=== PATIENT | female | born 1960 | race Caucasian/White ===

== ENCOUNTER → 2016-07-07 | Outpatient (CLI) | payer BC ==
[~2016-07-07] MED LIST: DOXY100T PO; ESCI1TAB10 PO; GABA-113 PO; GABA1CAP5 PO; HYDR-5688 PO; ONDA4TAB46 PO; OXYC1CAP5 PO; TEMA15CA4 PO; TRAM-10 PO; TRAZ50TA35 PO; ULT50 PO
--- NOTE | 2016-07-07 11:08 | DIAGNOSTIC IMAGING REPORT ---
MRI LEFT FOOT WITHOUT IV CONTRAST CLINICAL HISTORY: Tender palpable nodule along the bottom of the foot. COMPARISON STUDY: No priors. TECHNIQUE: MRI of the left foot is performed using various T1 and T2-weighted sequences in the axial, sagittal, and coronal planes. IV contrast was not administered for this examination. Note that interpretation is suboptimal without plain film correlate. FINDINGS: The skeletal structures demonstrate normal marrow signal intensity. There is no MRI evidence of fracture or osteonecrosis. No osteochondral defect is seen in the talar dome. A cutaneous marker is placed along the plantar aspect of the foot at the level of the base of the first metatarsal. There is focal nodularity identified involving the medial band of the plantar fascia at this site which measures 0.7 x 1.6 x 1.2 cm. There is mild surrounding soft tissue edema. The appearance is typical for plantar fibromatosis. The remainder of the plantar fascia is normal in appearance. The anterior, posterior, and peroneal tendons are intact as visualized. The anterior talofibular ligament appears preserved. There is no ankle joint effusion. Normal fat is maintained within the sinus tarsi. A plantar calcaneal enthesophyte is observed. IMPRESSION: Findings are consistent with plantar fibromatosis at the indicated site of discomfort/nodularity with mild surrounding soft tissue edema. Electronically signed by: Oren Pritchard M.D. 07/07/2016 11:07 AM Dictated Date/Time: 07/07/2016 11:02 AM
== END | disposition home or self-care (01) ==
LOC: C.MRIBC 10:03
PROVIDERS: ATTEND Orthopaedic Surgery
DX: M79.672 Pain in left foot (principal)

== ENCOUNTER → 2016-08-05 | Outpatient (CLI) | payer BC ==
[~2016-08-05] MED LIST changes: -DOXY100T PO; -ONDA4TAB46 PO; -TEMA15CA4 PO
== END | disposition home or self-care (01) ==
LOC: C.CPL 14:46
PROVIDERS: ATTEND Orthopaedic Surgery
DX: Z01.810 Encounter for preprocedural cardiovascular examination (principal); M10.9 Gout, unspecified

== ENCOUNTER → 2016-08-19 | Day surgery (SDC) | payer BC ==
[2016-08-04 13:34] VITALS: Ht 175.3 cm; Wt 100.0 kg
[~2016-08-19] VITALS: Ht 175.3 cm; Wt 100.0 kg
[~2016-08-19] MED LIST changes: +ATROPINE SULFATE 0.1 MG/ML 5ML SYR IV PRN; +BUPIVACAINE 0.5 % 5 MG/1 ML MPF 30ML VIAL ONE; +CEFAZOLIN 2000 MG/60 ML D5W IV SCH; +DEXAMETHASONE SOD INJ 4 MG/ML VIAL ONE; +FENTANYL CITRATE INJ 50 MCG/1 ML 2 ML VIAL IV PRN; +FENTANYL CITRATE INJ 50 MCG/1 ML 2 ML VIAL ONE; +KETOROLAC TROMETHAMINE 30 MG/ML VIAL IV. PRN; +LABETALOL HCL IV 5 MG/ML 20ML IV PRN; +LACTATED RINGER'S 1000ML 1,000 ML IV SCH; +LIDOCAINE HCL 2% 2 ML VIAL (20MG/ML) ONE; +METOCLOPRAMIDE HCL INJ 5 MG/ML 2 ML VIAL ONE; +MIDAZOLAM HCL 1 MG/ML 2ML VIAL ONE; +ONDANSETRON INJ 2 MG/ML 2 ML VIAL IV PRN; +ONDANSETRON INJ 2 MG/ML 2 ML VIAL ONE; +OXYCODONE/ACETAMINOPHEN 5-325 TAB PO PRN; +PROMETHAZINE HCL INJ 12.5 MG in SODIUM CHLORIDE 0.9% 50ML 50 ML IV PRN; +PROPOFOL IV EMULSION 10 MG/ML 20 ML VIAL IV ONE; +SODIUM CHLORIDE 0.9% 1000ML 1,000 ML IV SCH
--- NOTE | 2016-08-19 06:48 | History & Physical Bridge - SC ---
H&P Re-Evaluation Bridge Note: I have examined the patient, reviewed the History & Physical and in the interval since the performance of the History & Physical I have noted the following changes of clinical significance: No changes noted
--- NOTE | 2016-08-19 07:14 | [facility] Post Operative Brief Note ---
Immediate Operative Summary Operative Date Aug 19, 2016. Pre-Operative Diagnosis Painful plantar fibroma, left foot Post-Operative Diagnosis same as preop Procedure(s) Performed Left Foot Plantar Fibroma Excision Surgeon Dr. Hutchinson Appliance Worker Surgeon(s) MOHSEN Sparrow Findings ABOVE Specimens none per surgeon Anesthesia LMA Complication(s) None Disposition Recovery Room / PACU
--- NOTE | 2016-08-19 07:22 | Discharge Instructions-SurgCtr ---
Discharge Instructions Date of Service Aug 19, 2016. Visit Reason for Visit: Left Foot Benign Neoplasm Discharge Discharge Diagnosis / Problem: same as above Discharge Goals Goal(s): Decrease discomfort, Improve function Activity Recommendations Activity Limitations: as noted below Lifting Limitations: gradually increase as tolerated Exercise/Sports Limitations: until after follow-up appointment Shower/Bathe: may shower/bathe in 3 days Weightbearing Status: Left weightbearing (as tolerated) Anesthesia . Post Anesthesia Instructions: If you have had General Anesthesia or IV Sedation: * Do not drive today. * Resume driving when surgeon permits. * Do not make important decisions or sign legal documents today. * Call surgeon for: 1. Temperature elevations greater than 101 degrees F. 2. Uncontrollable pain. 3. Excessive bleeding. 4. Persistent nausea and vomiting. 5. Medication intolerance (nausea, vomiting or rash). * For nausea and vomiting use only clear liquids such as: tea, soda, bouillon until nausea subsides, then gradually increase diet as tolerated. * If you have any concerns or questions, call your surgeon's office. If physician is unavailable and it is an emergency, call 911 or go to the nearest emergency room. . Instructions / Follow-Up Instructions / Follow-Up MEDICATIONS: * Resume previous medications unless instructed otherwise by your surgeon. * Always take pain medication on a full stomach or with food to avoid upset stomach. * Do not drink alcohol or drive while taking narcotics. * Ibuprofen or Tylenol may be taken if narcotic not needed. SPECIAL CARE INSTRUCTIONS: __ None _X_ Keep extremity elevated and iced x 48 hours; apply ice 20-30 minutes 8-10 times/day. May remove at night. __ Crutches __ May discard when able _X_ Brace/Post-op shoe __ 24 hrs/day __ Remove at night _X_ Dressing _X_ Maintain until seen in office, may shower with plastic over site __ Remove dressings in 24-48 hours and then may shower __ Cover incisions with band-aids after showering __ Do not remove steri-strips Call physician if chills or temperature rises above 102 degrees or pain unrelieved by prescribed pain medications. Office [phone] WEAR POST OP SHOE FOR PROTECTION UNTIL SEEN IN OFFICE FOR F/U Diet Recommendations Home Diet: resume previous diet Procedures Procedures Performed: Left Foot Plantar Fibroma Excision Pending Studies Studies pending at discharge: no Medical Emergencies . Who to Call and When: Medical Emergencies: If at any time you feel your situation is an emergency, please call 911 immediately. . Non-Emergent Contact Non-Emergency issues call your: Primary Care Provider . . "Provider Documentation" section prepared by Ted Griffin.
[2016-08-19 08:15] VITALS: TEMP 36.9
--- NOTE | 2016-08-19 08:30 | Anesthesia Progress Nt - [facility] ---
Anesthesia Post Op Note Date & Time Aug 19, 2016 at 08:31 Vital Signs Vital Signs Past 12 Hours Date Time Temp Pulse Resp B/P Pulse Ox O2 Delivery O2 Flow Rate FiO2 08/19/16 08:15 36.9 69 14 129/80 96 Room Air 08/19/16 07:59 72 16 125/79 94 08/19/16 07:57 69 12 08/19/16 07:57 69 12 94 08/19/16 07:55 36.9 08/19/16 07:55 114/73 08/19/16 07:52 80 12 08/19/16 07:52 81 12 94 08/19/16 07:49 115/82 08/19/16 07:47 69 9 99 08/19/16 07:47 70 9 08/19/16 07:44 105/79 08/19/16 07:42 71 8 08/19/16 07:42 70 8 99 08/19/16 07:40 119/71 08/19/16 07:37 71 10 08/19/16 07:37 70 10 99 08/19/16 07:34 120/81 08/19/16 07:32 79 10 99 08/19/16 07:32 78 10 08/19/16 07:29 126/83 08/19/16 07:27 82 13 99 08/19/16 07:27 82 13 08/19/16 07:25 124/77 08/19/16 07:22 82 14 97 08/19/16 07:22 84 14 08/19/16 07:21 36.6 84 12 121/67 98 Mask 6 08/19/16 06:28 36.6 78 16 143/94 95 Room Air Notes Mental Status: alert / awake / arousable, participated in evaluation Pt Amnestic to Procedure: Yes Nausea / Vomiting: adequately controlled Pain: adequately controlled Airway Patency, RR, SpO2: stable & adequate BP & HR: stable & adequate Hydration State: stable & adequate Anesthetic Complications: no major complications apparent
[2016-08-19 08:40] VITALS: BP 125/92; PULSE 71; O2SAT 98
--- NOTE | 2016-08-19 08:49 | OPERATIVE REPORT ---
DATE OF OPERATION: 08/19/2016 PREOPERATIVE DIAGNOSIS: Painful plantar fibroma plantar fascia, left foot. POSTOPERATIVE DIAGNOSIS: Same. PROCEDURE: Excision of painful fibroma of the plantar fascia, left foot. SURGEON: Dr. Hutchinson. E COMMERCE DIRECTOR: Ted Griffin PA-C ANESTHESIOLOGIST: Dr. Wade. ANESTHESIA: LMA. DRAINS: None. COMPLICATIONS: None. CONDITION: The patient tolerated the procedure well and returned to recovery in apparent satisfactory condition. INDICATIONS FOR SURGERY: Myesha is a 56-year-old female who has had a painful fibroma of the plantar fascia of the left foot about the size of a 2.5 x 4 mm in size, hurts when she walks, she was injected, it did not help much, and would like to excised it. I told her that there is always a chance of recurrence. Procedure, expected outcomes and side effects, and risks were all explained in detail including no guarantees to the operation. DESCRIPTION OF PROCEDURE: The patient was taken to the OR at which time she was placed supine on the operating table and put to sleep by the anesthesia department. Left foot was and prepped and draped in usual sterile fashion for surgery. Calf tourniquet was placed up to 250 mmHg. We made a vertical incision over the plantar fascia area where the fibroma was. We dissected down with tenotomy scissors and removed it without incident. The wound was irrigated, closed with interrupted 4-0 nylon sutures. Marcaine without epinephrine was placed in skin edges. Placed a sterile dressing of Xeroform, 4 x 4, soft roll and Blaine bandage, postop shoe and returned to the recovery room in apparent satisfactory condition. I attest to the content of the Intraoperative Record and any orders documented therein. Any exceptio ns are noted below.
== END | disposition home or self-care (01) ==
LOC: X.SURG 06:02
PROVIDERS: ATTEND Orthopaedic Surgery
DX: M72.2 Plantar fascial fibromatosis (principal); M79.672 Pain in left foot; Z88.8 Allergy status to other drugs, medicaments and biological substances; Z88.5 Allergy status to narcotic agent; K21.9 Gastro-esophageal reflux disease without esophagitis; M19.90 Unspecified osteoarthritis, unspecified site; G62.9 Polyneuropathy, unspecified; F41.9 Anxiety disorder, unspecified; F32.9 Major depressive disorder, single episode, unspecified

== ENCOUNTER → 2016-10-09 | Outpatient (CLI) | payer BC ==
[~2016-10-09] MED LIST changes: -ATROPINE SULFATE 0.1 MG/ML 5ML SYR IV PRN; -BUPIVACAINE 0.5 % 5 MG/1 ML MPF 30ML VIAL ONE; -CEFAZOLIN 2000 MG/60 ML D5W IV SCH; -DEXAMETHASONE SOD INJ 4 MG/ML VIAL ONE; -FENTANYL CITRATE INJ 50 MCG/1 ML 2 ML VIAL IV PRN; -FENTANYL CITRATE INJ 50 MCG/1 ML 2 ML VIAL ONE; -KETOROLAC TROMETHAMINE 30 MG/ML VIAL IV. PRN; -LABETALOL HCL IV 5 MG/ML 20ML IV PRN; -LACTATED RINGER'S 1000ML 1,000 ML IV SCH; -LIDOCAINE HCL 2% 2 ML VIAL (20MG/ML) ONE; -METOCLOPRAMIDE HCL INJ 5 MG/ML 2 ML VIAL ONE; -MIDAZOLAM HCL 1 MG/ML 2ML VIAL ONE; -ONDANSETRON INJ 2 MG/ML 2 ML VIAL IV PRN; -ONDANSETRON INJ 2 MG/ML 2 ML VIAL ONE; -OXYC1CAP5 PO; -OXYCODONE/ACETAMINOPHEN 5-325 TAB PO PRN; -PROMETHAZINE HCL INJ 12.5 MG in SODIUM CHLORIDE 0.9% 50ML 50 ML IV PRN; -PROPOFOL IV EMULSION 10 MG/ML 20 ML VIAL IV ONE; -SODIUM CHLORIDE 0.9% 1000ML 1,000 ML IV SCH; -ULT50 PO
== END | disposition home or self-care (01) ==
LOC: C.LABSPEC 17:57
PROVIDERS: ATTEND Internal Medicine
DX: R19.7 Diarrhea, unspecified (principal)

== ENCOUNTER → 2016-11-06 | Outpatient (CLI) | payer OTHER, BC ==
--- NOTE | 2016-11-06 15:46 | DIAGNOSTIC IMAGING REPORT ---
LEG LENGTH STUDY (WHOLE LEG) CLINICAL HISTORY: POST LAMINECTOMY SYNDROME right-sided pain when walking COMPARISON STUDY: No previous studies for comparison. FINDINGS: Each lower extremity measures 886 mm as measured from the femoral head to the tibial plafond. No fractures are visualized. There are postsurgical changes present within the lumbar spine. IMPRESSION: No evidence of leg length discrepancy. Electronically signed by: Hermelindo Batista M.D. 11/06/2016 3:45 PM Dictated Date/Time: 11/06/2016 3:43 PM
== END | disposition home or self-care (01) ==
LOC: C.RADBC 15:16
PROVIDERS: ATTEND Physician Assistant
DX: M54.16 Radiculopathy, lumbar region (principal); M96.1 Postlaminectomy syndrome, not elsewhere classified

== ENCOUNTER → 2016-11-19 | Outpatient (CLI) | payer OTHER, BC ==
[~2016-11-19] MED LIST changes: +GADAVIST IV PRN
--- NOTE | 2016-11-19 12:59 | DIAGNOSTIC IMAGING REPORT ---
LUMBAR SPINE MRI WITH AND WITHOUT CONTRAST HISTORY: LUMBAR RADICULOPATHY, POST LAMINECTOMY SYNDROME TECHNIQUE: Multiplanar multisequence MRI of the lumbar spine was performed both before and after the intravenous administration of contrast. COMPARISON: Lumbar spine MRI 05/27/2016. FINDINGS: For the purpose of the report the L5-S1 disc space will be located on axial image 23 of 25. No fracture or subluxation within the lumbar spine. There is again noted posterior decompression from L3 through L5. There are old screw tracts L3-L5 vertebral bodies. The hardware appears to have been removed. Trace fluid collections within the subcutaneous soft tissues of the lumbar region and laminectomy site have a most completely resolved. Scarlike densities and enhancement at the laminectomy sites and posterior soft tissues is similar to the prior study. There is question of abnormal endplate signal at the L4 and L5 levels on the seen on the sagittal T2 and sagittal T1 postcontrast sequences. This appears to represent artifact rather than signal abnormality. The conus terminus at the L1-L2 disc space level. Mild disc space narrowing at L2-L3, unchanged. The visualized retroperitoneal soft tissues are unremarkable. L1-L2: No significant central canal or neural foraminal narrowing. L2-L3: Broad-based posterior disc bulge resulting in mild central canal narrowing. This remains unchanged. L3-L4: No significant central canal or neural foraminal narrowing. L4-L5: No significant central canal or neural foraminal narrowing. L5-S1: Small broad-based posterior disc bulge without significant central canal or neural foraminal narrowing. IMPRESSION: 1. Near complete resolution of the fluid collections at the laminectomy site and superficial soft tissues. 2. Question of abnormal signal intensity at the L4-5 endplates appears to represent artifact. Follow can be performed if the patient symptoms continue to progress. 3. Mild central canal narrowing at L2-L3 due to a broad-based posterior disc bulge. This remains unchanged. 4. Persistent soft tissue enhancement at the laminectomy sites which favors postoperative change. However, superimposed infection cannot be excluded. Electronically signed by: Jonnie Chavira M.D. 11/19/2016 12:58 PM Dictated Date/Time: 11/19/2016 12:27 PM
== END | disposition home or self-care (01) ==
LOC: C.MRIBC 11:09
PROVIDERS: ATTEND Physician Assistant
DX: M54.16 Radiculopathy, lumbar region (principal); M96.1 Postlaminectomy syndrome, not elsewhere classified

== ENCOUNTER → 2017-01-06 | Day surgery (SDC) | payer BC ==
[2016-12-31 10:34] VITALS: Ht 175.3 cm; Wt 100.0 kg
[~2017-01-06] VITALS: Ht 175.3 cm; Wt 100.0 kg
[~2017-01-06] MED LIST changes: -GABA1CAP5 PO; -GADAVIST IV PRN; -HYDR-5688 PO; +LIDOCAINE HCL 2% 2 ML VIAL (20MG/ML) ONE; +MIDAZOLAM HCL 1 MG/ML 2ML VIAL ONE; +PROPOFOL IV EMULSION 10 MG/ML 20 ML VIAL IV ONE; +SODIUM CHLORIDE 0.9% 500ML 500 ML IV ONE
--- NOTE | 2017-01-06 13:24 | Endo History and Physical ---
History & Physical Date of Service: Jan 06, 2017. Chief Complaint: Abd pain, rectal bleeding Referring Physician: Sarita Chavarria History of Present Illness 56 yo CF who presents for colonoscopy secondary to abdominal pain and rectal bleeding. Past Medical History Anxiety, Depression Past Surgical History Hx Cardiac Surgery: No Hx Internal Defibrillator: No Hx Pacemaker: No Hx Abdominal Surgery: Yes ( X2, ZHANG BSO) Hx of Implantable Prosthesis: No Hx Post-Op Nausea and Vomiting: Yes Hx Cancer Surgery: No Hx Thoracic Surgery: No Hx Orthopedic: Yes (LUMBAR SURGERY X4, HARDWARE REMOVAL S/P INFECTION, LT FOOT MASS EXCISION) Hx Urinary Tract Surgery: No Family History None Social History Smoking Status: Never Smoker Hx Substance Use: No Hx Alcohol Use: No Allergies Coded Allergies: Lorazepam (Unverified Adverse Reaction, Intermediate, DELIRIUM, CONFUSION , 01/06/17) Zolpidem (Verified Adverse Reaction, Intermediate, DELIRIUM, CONFUSION, 01/06/17) Current Medications Reported Home Medications Medications Dose Route/Sig Max Daily Dose Days Date Category Neurontin (Gabapentin) 300 Mg Cap 600 Mg PO HS 12/31/16 Reported Ultram (Tramadol HCl) 50 Mg Tab 1 Tab PO TID PRN 11/06/16 Reported Neurontin (Gabapentin) 300 Mg Cap 300 Mg PO BID 08/04/16 Reported Trazodone (Trazodone HCl) 50 Mg Tab 75 Mg PO HS PRN 05/27/16 Reported Lexapro (Escitalopram Oxalate) 20 Mg Tab 20 Mg PO HS 12/17/15 Reported Vital Signs Weight (Kilograms): 100 Height (Feet): 5 Height (Inches): 9 Date Time Temp Pulse Resp B/P (MAP) Pulse Ox O2 Delivery O2 Flow Rate FiO2 01/06/17 11:35 36.8 71 16 113/75 (88) 94 Room Air Physical Exam General Appearance: WD/WN, no apparent distress Respiratory/Chest: Auscultation: breath sounds normal Cardiovascular: Heart Auscultation: RRR Abdomen: Bowel Sounds: normal Inspection & Palpation: soft, non-distended, no tenderness, guarding & rebound Assessment and Plan Assessment: 56 yo CF who presents for colonoscopy secondary to abdominal pain and rectal bleeding. Plan: Proceed with colonoscopy.
--- NOTE | 2017-01-06 13:44 | Discharge Instructions ---
Endoscopy Patient Instructions Date / Procedure(s) Performed Jan 06, 2017. Colonoscopy Allergy Information Coded Allergies: Lorazepam (Unverified Adverse Reaction, Intermediate, DELIRIUM, CONFUSION , 01/06/17) Zolpidem (Verified Adverse Reaction, Intermediate, DELIRIUM, CONFUSION, 01/06/17) Discharge Date / Findings Jan 06, 2017. Random colon biopsies Internal hemorrhoids Medication Instructions OK to resume all medications today as prescribed Reported Home Medications Medications Dose Route/Sig Max Daily Dose Days Date Category Neurontin (Gabapentin) 300 Mg Cap 600 Mg PO HS 12/31/16 Reported Ultram (Tramadol HCl) 50 Mg Tab 1 Tab PO TID PRN 11/06/16 Reported Neurontin (Gabapentin) 300 Mg Cap 300 Mg PO BID 08/04/16 Reported Trazodone (Trazodone HCl) 50 Mg Tab 75 Mg PO HS PRN 05/27/16 Reported Lexapro (Escitalopram Oxalate) 20 Mg Tab 20 Mg PO HS 12/17/15 Reported Provider Instructions Activity Restrictions - No exercising or heavy lifting for 24 hours. - Do not drink alcohol the day of the procedure. - Do not drive a car or operate machinery until the day after the procedure. - Do not make any important decisions or sign important papers in 24 hours after the procedure. Following Day: - Return to full activity which may include returning to work/school. Diet Start your diet with liquids and light foods (jello, soup, juice, toast). Then eat your usual diet if not nauseated. Treatment For Common After Affects For mild abdominal pain, bloating, or excessive gas: - Rest - Eat lightly - Lie on right side Follow-Up Information Follow-up with Sarita Chavarria as scheduled Anesthesia Information What You Should Know You have had a procedure that required some medicine to reduce anxiety and discomfort. This treatment is called moderate sedation. After receiving the treatment, you may be sleepy, but you will be able to breathe on your own. The effects of the treatment may last for several hours. Follow these instructions along with Activity/Diet recommendations noted above: * Do NOT do anything where dizziness or clumsiness would be dangerous. * Rest quietly at home today, then you can be up and about tomorrow. * Have a responsible person stay with you the rest of today. * You may have had an I.V. today. If so, you may take the dressing off later today. Recommendations Call your doctor if: * Trouble breathing * Continuous vomiting for more than 24 hours * Temperature above 101 degrees * Severe abdominal pain or bloating * Pain not relieved by pain medicine ordered * There is increased drainage or redness from any incision * A large amount of rectal bleeding greater than 2-3 tablespoons. (If you had a polyp/s removed or have hemorrhoids, a small amount of blood - from the rectum is to be expected.) * You have any unanswered questions or concerns. IN THE EVENT OF A SERIOUS EMERGENCY, GO TO THE NEAREST EMERGENCY ROOM Your discharge instructions were prepared by provider Jared Arrington. Patient Instructions Signature Page Myesha Salinas Patient (or Guardian) Signature/Date: I have read and understand the instructions given to me by my caregivers. Caregiver/RN/Doctor Signature/Date: The above-named patient and/or guardian has received patient instructions on this date. + Original Patient Signature Page (only) stays with chart. Please make copy for patient.
--- NOTE | 2017-01-06 13:49 | GI REPORT ---
Procedure Date: 01/06/2017 1:27 PM Procedure: Colonoscopy Indications: Generalized abdominal pain, Rectal bleeding Medicines: Monitored Anesthesia Care Complications: No immediate complications. Estimated Blood Loss: Estimated blood loss: none. Procedure: Pre-Anesthesia Assessment: - Prior to the procedure, a History and Physical was performed, and patient medications and allergies were reviewed. The patient's tolerance of previous anesthesia was also reviewed. The risks and benefits of the procedure and the sedation options and risks were discussed with the patient. All questions were answered, and informed consent was obtained. Prior Anticoagulants: The patient has taken no previous anticoagulant or antiplatelet agents. ASA Grade Assessment: II - A patient with mild systemic disease. After reviewing the risks and benefits, the patient was deemed in satisfactory condition to undergo the procedure. After I obtained informed consent, the scope was passed under direct vision. Throughout the procedure, the patient's blood pressure, pulse, and oxygen saturations were monitored continuously. The On-site loaner was introduced through the anus and advanced to the terminal ileum. The colonoscopy was performed without difficulty. The patient tolerated the procedure well. The quality of the bowel preparation was good. The terminal ileum, ileocecal valve, appendiceal orifice, and rectum were photographed. Findings: Non-bleeding internal hemorrhoids were found during retroflexion. The hemorrhoids were small. Several biopsies were obtained with cold forceps for histology randomly in the rectum and in the sigmoid colon. Impression: - Non-bleeding internal hemorrhoids. - Several biopsies were obtained in the rectum and in the sigmoid colon. Recommendation: - Resume previous diet. - Continue present medications. - Repeat colonoscopy for surveillance based on pathology results. - Return to primary care physician as previously scheduled. Jared Arrington, 01/06/2017 1:48:15 PM This report has been signed electronically. Note Initiated On: 01/06/2017 1:27 PM I attest to the content of the Intraoperative Record and orders documented therein, exceptions below
--- NOTE | 2017-01-06 13:56 | Anesthesiology Progress Note ---
Anesthesia Post Op Note Date & Time Jan 06, 2017 at 13:56 Vital Signs Pain Intensity: 0 Vital Signs Past 12 Hours Date Time Temp Pulse Resp B/P (MAP) Pulse Ox O2 Delivery O2 Flow Rate FiO2 01/06/17 13:47 88 12 109/80 (90) 96 Room Air 01/06/17 11:35 36.8 71 16 113/75 (88) 94 Room Air Notes Mental Status: alert / awake / arousable, participated in evaluation Pt Amnestic to Procedure: Yes Nausea / Vomiting: adequately controlled Pain: adequately controlled Airway Patency, RR, SpO2: stable & adequate BP & HR: stable & adequate Hydration State: stable & adequate Anesthetic Complications: no major complications apparent
[2017-01-06 14:18] VITALS: BP 123/88; PULSE 75; O2SAT 96
== END | disposition home or self-care (01) ==
LOC: C.GI 11:11
PROVIDERS: ATTEND Internal Medicine
DX: K64.8 Other hemorrhoids (principal); R10.84 Generalized abdominal pain; F41.9 Anxiety disorder, unspecified; F32.9 Major depressive disorder, single episode, unspecified; Z79.899 Other long term (current) drug therapy

== ENCOUNTER → 2017-01-08 | Outpatient (CLI) | payer BC ==
[~2017-01-08] MED LIST changes: -LIDOCAINE HCL 2% 2 ML VIAL (20MG/ML) ONE; -MIDAZOLAM HCL 1 MG/ML 2ML VIAL ONE; -PROPOFOL IV EMULSION 10 MG/ML 20 ML VIAL IV ONE; -SODIUM CHLORIDE 0.9% 500ML 500 ML IV ONE
[2017-01-08 17:53] LABS: URINE APPEARANCE CLEAR (CLEAR); URINE BILIRUBIN NEG (NEG); URINE COLOR YELLOW; URINE NITRITE NEG (NEG); URINE PH 6.5 (4.5-7.5); URINE SPECIFIC GRAVITY 1.024 (1.000-1.030); UROBILINOGEN NEG (NEG)
[2017-01-08 17:59] LABS: MANUAL MICROSCOPIC REQUIRED? NO; REVIEW REQ? NO
== END | disposition home or self-care (01) ==
LOC: C.LABBFT 10:17
PROVIDERS: ATTEND Internal Medicine
DX: R39.9 Unspecified symptoms and signs involving the genitourinary system (principal)

== ENCOUNTER → 2017-05-20 | Outpatient (CLI) | payer BC ==
--- NOTE | 2017-05-21 14:34 | MAMMOGRAPHY REPORT ---
BILATERAL DIGITAL SCREENING MAMMOGRAM TOMOSYNTHESIS WITH CAD: 05/20/2017 CLINICAL HISTORY: Routine screening. TECHNIQUE: Breast tomosynthesis in addition to standard 2D mammography was performed. Current study was also evaluated with a Computer Aided Detection (CAD) system. COMPARISON: Comparison is made to exams dated: 03/27/2016 mammogram, 09/11/2014 mammogram, 09/06/2013 m ammogram, 08/26/2012 mammogram, 03/27/2011 mammogram, and 03/26/2010 mammogram - [facility]. BREAST COMPOSITION: There are scattered areas of fibroglandular density in both breasts. FINDINGS: There is stable asymmetry in the middle one third of the left breast along the posterior ni pple line on the CC view. No new suspicious mass, architectural distortion or cluster of microcalcif ications is seen. IMPRESSION: ACR BI-RADS CATEGORY 1: NEGATIVE There is no mammographic evidence of malignancy. A 1 year screening mammogram is recommended. The pa tient will receive written notification of the results. Approximately 10% of breast cancers are not detected with mammography. A negative mammographic report should not delay biopsy if a clinically suggestive mass is present. Ami Garza M.D. ay/:05/20/2017 16:14:07 Liquid Loader: Hna URIBE(R)(M), [facility] letter sent: Normal 1/2 BI-RADS Code: ACR BI-RADS Category 1: Negative
== END | disposition home or self-care (01) ==
LOC: C.MAMM 15:34
PROVIDERS: ATTEND Internal Medicine
DX: Z12.31 Encounter for screening mammogram for malignant neoplasm of breast (principal)

== ENCOUNTER → 2017-08-13 | Outpatient (CLI) | payer BC ==
[2017-08-13 12:10] LABS: BASO % 0.3 %; BASO ABS # 0.02 K/uL (0-0.2); EOS % 1.6 %; HEMATOCRIT 37.6 % (37-47); HEMOGLOBIN 11.8 g/dL (12.0-16.0); IG# 0.02 K/uL (0.00-0.02); LYMPH % 17.5 %; LYMPH ABS # 1.11 K/uL (1.2-3.4); MEAN CELL VOLUME 79.7 fL (80-100); MEAN CORPUSCULAR HGB CONC 31.4 g/dl (32-36); MEAN PLATELET VOLUME 9.3 fL (7.4-10.4); MONO % 9.9 %; MONO ABS # 0.63 K/uL (0.11-0.59); NEUT % 70.4 %; NEUT ABS # 4.46 K/uL (1.4-6.5); PLATELET COUNT 357 K/uL (130-400); RED CELL DISTRIBUTION WIDTH CV 14.9 % (11.5-14.5); RED CELL DISTRIBUTION WIDTH SD 43.6 fL (36.4-46.3); WHITE BLOOD COUNT 6.34 K/uL (4.8-10.8)
[2017-08-13 12:35] LABS: ALBUMIN 3.2 gm/dl (3.4-5.0); ALT/SGPT 29 U/L (12-78); AST/SGOT 14 U/L (15-37); BLOOD UREA NITROGEN 21 mg/dl (7-18); CALCIUM 8.5 mg/dl (8.5-10.1); CARBON DIOXIDE 28 mmol/L (21-32); CREATININE 0.89 mg/dl (0.60-1.20); GLUCOSE 99 mg/dl (70-99); POTASSIUM 4.1 mmol/L (3.5-5.1); SODIUM 138 mmol/L (136-145)
[2017-08-13 12:47] LABS: ALKALINE PHOSPHATASE 130 U/L (45-117); CHOLESTEROL 247 mg/dl (0-200); LDL CHOLESTEROL CALCULATED 160 mg/dl; TOTAL PROTEIN 7.8 gm/dl (6.4-8.2)
== END | disposition home or self-care (01) ==
LOC: C.LABBFT 08:50
PROVIDERS: ATTEND Internal Medicine
DX: R53.83 Other fatigue (principal); Z13.220 Encounter for screening for lipoid disorders

== ENCOUNTER 2019-03-07 08:14 | Inpatient (IN) ==
[2019-02-11 17:29] LABS: Basophils # (auto) 0.02 K/uL (0-0.2); Basophils % (auto) 0.3 %; Eosinophils # (auto) 0.09 K/uL (0-0.5); Eosinophils % (auto) 1.3 %; Hematocrit (blood only) 38.6 % (37-47); Hemoglobin 12.1 g/dL (12.0-16.0); Immature Granulocytes # (auto) 0.02 K/uL (0.00-0.02); Immature Granulocytes % (auto) 0.3 %; Lymphocytes # (auto) 1.42 K/uL (1.2-3.4); Lymphocytes % (auto) 20.7 %; Mean Corpuscular Hemoglobin 24.6 pg (25-34); Mean Corpuscular Hgb Conc 31.3 g/dL (32-36); Mean Corpuscular Volume 78.6 fL (80-100); Mean Platelet Volume 9.7 fL (7.4-10.4); Monocytes # (auto) 0.63 K/uL (0.11-0.59); Monocytes % (auto) 9.2 %; Neutrophils # (auto) 4.67 K/uL (1.4-6.5); Neutrophils % (auto) 68.2 %; Platelet Count 389 K/uL (130-400); RDW Coefficient of Variation 15.2 % (11.5-14.5); RDW Standard Deviation 43.6 fL (36.4-46.3); Red Blood Count 4.91 M/uL (4.2-5.4); White Blood Count 6.85 K/uL (4.8-10.8)
[2019-02-11 17:34] LABS: Partial Thromboplastin Ratio 1.5; Partial Thromboplastin Time 41.3 Seconds (21.0-31.0); Prothrombin Time 10.3 Seconds (9.0-12.0)
[2019-02-11 17:48] LABS: BUN Creatinine Ratio 25.1 (10-20); Blood Urea Nitrogen 23 mg/dl (7-18); Carbon Dioxide 31 mmol/L (21-32); Chloride 104 mmol/L (98-107); Est GFR (African American) 80.6; Est GFR (Non-African American) 69.5; Glucose 78 mg/dl (70-99); Potassium 3.5 mmol/L (3.5-5.1); Sodium 140 mmol/L (136-145)
--- NOTE | 2019-02-14 13:32 | Anesthesiology Consultation ---
Date of Service February 14, 2019 Assessment & Plan (1) Encounter for pre-operative examination: Chart Review Chart Review: Acceptable Risk for Surgery and Patient NOT seen in Pre Admission Testing Consults Requested none History Surgery Operation Date: 02/17/19 09:50 Proposed Procedures p L5-S1 Discectomy - Gerardo Gonzales DO Height/Weight Height: 5 ft 9 in Weight: 104.326 kg Allergies Allergy/AdvReac Type Severity Reaction Status Date / Time lorazepam AdvReac Intermediate DELIRIUM, Verified 02/09/19 16:04 CONFUSION zolpidem AdvReac Intermediate DELIRIUM, Verified 02/09/19 16:04 CONFUSION Medications Home Medications Medication Instructions Recorded Confirmed Last Taken tramadol 50 mg PO Q6H PRN #30 tab 09/21/18 02/09/19 Unknown cyclobenzaprine 10 mg PO Q8H PRN #21 tab 12/14/18 02/09/19 01/19/19 ibuprofen 200 - 600 mg PO DIRECTED PRN 12/14/18 02/09/19 01/19/19 trazodone 50 mg PO HS 12/29/18 02/09/19 01/19/19 Hydrocodone 1 tab PO TID PRN 02/09/19 02/09/19 Unknown duloxetine 60 mg PO QPM 02/09/19 02/09/19 Unknown Past Medical History Medical History Tubular adenoma of colon (Acute) Sacral radiculopathy (Acute) Insomnia (Acute) Dyslipidemia (Acute) Disc degeneration, lumbar (Acute) Depression with anxiety (Acute) Anemia (Acute) Anxiety Depression Hyperlipidemia MILD ELEVATION-NO MEDS Hypertension MILD ELEVATION-NO MEDS Migraine HX Osteoarthritis Temporomandibular joint disorder BILAT CLICKS HAS NEVER LOCKED Past Family History Family History Mother Family history of diabetes mellitus Family history of reaction to anesthesia PONV Brother Family history of reaction to anesthesia PONV Brother Family history of reaction to anesthesia PONV Past Surgical History Surgical History Fusion of spine LUMBAR H/O foot surgery LEFT History of arthroscopy R/L KNEES. 09/21/2018 at [facility] (Dr. Hutchinson). LMA no issues. History of section X 2 History of colonoscopy History of esophagogastroduodenoscopy (EGD) History of tonsillectomy History of total abdominal hysterectomy and bilateral salpingo-oophorectomy Nausea and vomiting after administration of anesthetic agent Social History Smoking Status: Never smoker Do You Dip or Chew Tobacco: No Hx Alcohol Use: No Hx Substance Use: No substance use type: does not use Testing Laboratory Results 02/11/19 16:14 02/11/19 16:14 PT 10.3 Seconds (9.0-12.0) 02/11/19 16:14 INR 1.0 (0.9-1.1) 02/11/19 16:14 APTT 41.3 Seconds (21.0-31.0) H 02/11/19 16:14 Electrocardiogram Electrocardiogram Date: 09/13/18 Findings: + NSR @ (at 76;normal)
--- NOTE | 2019-03-04 15:46 | History and Physical Report ---
DATE OF ADMISSION: 03/04/2019 CHIEF COMPLAINT: Back and lower extremity difficulty with a disc herniation lumbar spine. This is a preoperative H and P for Thursday surgery. PAST MEDICAL HISTORY: Positive for mild obesity, but no hypertension, COPD, diabetes. PAST SURGICAL HISTORY: Lumbar spine surgery. ALLERGIES: Negative. SOCIAL HISTORY: She is . No alcohol, tobacco. Active lifestyle. REVIEW OF SYSTEMS: Denies any fevers, sweats, chills, malaise, weight loss, gain. No chest pain, shortness of breath. No nausea, vomiting, no bowel and bladder issues. She has musculoskeletal back and lower extremity difficulty. MEDICATIONS: Zocor, [place]. OBJECTIVE: GENERAL: She is 5 feet 9 inches, she is 200 pounds. She is in moderate distress, continued to have back and buttock pain. VITAL SIGNS: Blood pressure 130/80, pulse 80, respirations 16. HEENT: Pupils react to light and accommodation. Ear, nose and throat clear. CARDIAC: Normal S1, S2. LUNGS: Clear. ABDOMEN: Soft, nontender. MUSCULOSKELETAL: She has back pain, but no warmth, erythema, edema. She has straight leg raising pain. NEUROLOGIC: She has slight decrease in her Achilles reflex. Her MRI was reviewed. She has a disc herniation below the fusion. IMPRESSION: Disc herniation, lumbar spine below prior fusion. PLAN: Includes a lumbar spine laminectomy L5-S1. MTDD
[~2019-03-07 08:14] MED LIST changes: +CEFAZOLIN 2000MG 2,000 MG/15 ML SYR IV SCH; -ESCI1TAB10 PO; -GABA-113 PO; +LR 15ML/HR IV SCH; +SODIUM CHLORIDE 0.9% 1,000 ML IV SCH; -TRAM-10 PO; -TRAZ50TA35 PO
[2019-03-07] MEDS ORDERED: MIDAZOLAM HCL 1 MG/ML 2ML VIAL ONE (08:38)
[2019-03-07] MEDS ORDERED: fentaNYL citrate 100 MCG/2 ML VIAL ONE (08:38)
[2019-03-07] MEDS ORDERED: SCOPOLAMINE 1.5 MG TDSY ONE (09:07)
[2019-03-07] MEDS ORDERED: PROMETHAZINE HCL 6.25 MG in SODIUM CHLORIDE 0.9% 50 ML IV PRN (09:09)
[2019-03-07] MEDS ORDERED: ONDANSETRON INJ 2 MG/ML 2 ML VIAL IV PRN ×2 (09:09→13:11)
[2019-03-07] MEDS ORDERED: fentaNYL citrate 100 MCG/2 ML VIAL IV PRN (09:09)
[2019-03-07] MEDS ORDERED: ePHEDrine sulfate 50 MG/ML AMP IV PRN (09:09)
[2019-03-07] MEDS ORDERED: HYDROmorphone INJ 1 MG/ML SYRINGE IV PRN (09:09)
[2019-03-07] MEDS ORDERED: ATROPINE SULFATE 0.1 MG/ML 10ML SYR IV PRN (09:09)
[2019-03-07] MEDS ORDERED: SCOPOLAMINE 1.5 MG TDSY TD SCH (09:15)
[2019-03-07] MEDS ORDERED: VANCOMYCIN HCL 1000MG/20ML VIAL ONE (09:59)
[2019-03-07] MEDS ORDERED: THROMBIN FOR SOLN 20000 UNIT KIT ONE (10:00)
[2019-03-07] MEDS ORDERED: GELATIN SPONGE SZ 100 ONE (10:00)
[2019-03-07] MEDS ORDERED: BACITRACIN INJ 50,000 UNIT VIAL ONE (10:00)
[2019-03-07] MEDS ORDERED: BUPIVACAINE/EPINEPHRINE 0.5% MPF 1:200,000 30 ML VIAL ONE ×2 (10:00→10:43)
--- NOTE | 2019-03-07 10:08 | History & Physical Bridge Note ---
Date of Service March 07, 2019 History & Physical Bridge Note I have examined the patient, reviewed the History & Physical and in the interval since the performance of the History & Physical I have noted the following changes of clinical significance: no changes noted
[2019-03-07] MEDS ORDERED: HYDROmorphone INJ 2 MG/ML SYR/VIAL ONE (11:05)
[2019-03-07] MEDS ORDERED: PHENYLEPHRINE 100MCG/ML 5ML SYR ONE (11:14)
[2019-03-07] MEDS ORDERED: LARYING-O-JET KIT (LTA) ONE (11:14)
[2019-03-07] MEDS ORDERED: NEOSTIGMINE METHYLSULFATE 5 MG/5 ML SYR ONE (11:14)
[2019-03-07] MEDS ORDERED: ONDANSETRON INJ 2 MG/ML 2 ML VIAL ONE (11:14)
[2019-03-07] MEDS ORDERED: PROPOFOL IV EMULSION 10 MG/ML 20 ML VIAL IV ONE (11:14)
[2019-03-07] MEDS ORDERED: ePHEDrine sulfate 50 MG/ML SYR ONE (11:14)
[2019-03-07] MEDS ORDERED: GLYCOPYRROLATE 0.2 MG/ML VIAL ONE (11:14)
[2019-03-07] MEDS ORDERED: LIDOCAINE HCL 2% 2 ML VIAL/AMP(20MG/ML) INFIL ONE (11:14)
[2019-03-07] MEDS ORDERED: ROCURONIUM BROMIDE 10 MG/ML 5 ML VIAL ONE (11:14)
[2019-03-07] MEDS ORDERED: DEXAMETHASONE SOD INJ 4 MG/ML VIAL ONE (11:14)
--- NOTE | 2019-03-07 11:28 | Fluoroscopy Report ---
FL spine 1V any level HISTORY: 58 years-old Female L5-S1 LAMI status post laminectomy of the lower lumbar spine. Chronic l ow back pain COMPARISON: Lumbar spine radiographs 01/04/2018, fluoroscopic images of the lumbar spine 01/20/2018 TECHNIQUE: One lateral spot fluoroscopic image of the lumbar spine was obtained utilizing 2.7 seconds fluoroscopy time. FINDINGS: Metallic orthopedic device is noted posterior to the sacrum. Discectomy changes are again noted at L3 -L4 and L4-L5. There is suboptimal evaluation of the bony structures on this study secondary to under penetration. Follow-up with dedicated radiographs of the lumbar spine recommended. IMPRESSION: Fluoroscopic assistance as above. Please see operative report for further details. The above report was generated using voice recognition software. It may contain grammatical, syntax o r spelling errors. Electronically signed by: Luis Carlos Florian M.D. 03/07/2019 11:26 AM
--- NOTE | 2019-03-07 11:46 | Post Operative Brief Note ---
PG Immediate Post Op with CF Date of Surgery March 07, 2019 Pre & Post Diagnosis Operation Date: 02/17/19 12:05 <No data on this case meets the specified criteria> Operation Date: 03/07/19 09:50 Pre-Op Diagnosis: Disc Herniation Post-Op Diagnosis: Disc Herniation Procedure Operation Date: 02/17/19 12:05 <No data on this case meets the specified criteria> Operation Date: 03/07/19 09:50 Actual Procedures p L5-S1 Laminotomy and discectomy(Not Applicable) - Gerardo Gonzales DO Surgeon Gerardo Gonzales DO Scanner Operator clayton Estimated Blood Loss 20 Findings Consistent with Post-Op Diagnosis Specimens Specimen Description: NONE PER SURGEON Drains Hemovac Drain Overlapping Procedure I was immediately available: during the entire case.
--- NOTE | 2019-03-07 11:53 | Operative Report ---
DATE OF OPERATION: 03/07/2019 PREOPERATIVE DIAGNOSES: Disc herniation, foraminal stenosis lumbar spine, L5-S1. POSTOPERATIVE DIAGNOSES: Disc herniation, foraminal stenosis lumbar spine, L5-S1. PROCEDURE: Included a lumbar spine laminotomy, foraminotomy, partial facetectomy and discectomy L5-S1. DESCRIPTION OF PROCEDURE: The patient was identified in the preop holding area, initialed and then a formal bridge note provided. She was brought safely back to the operating room, a general intubated anesthetic provided to the patient. The patient placed prone on the Tj table. Scrubbed, prepped and draped sterile. We made a skin incision, fascial incision. We came down on the lamina right at the L5-S1 interval. We focused on the left hand side, her only symptomatic side. I did use some revision strategies to free up the nerve root. I was able to retract the nerve root in medial direction. I gave an ample foraminotomy above and below. I retracted the nerve root medially and there was a fairly obvious disc herniation. This was excised. We then irrigated thoroughly, made sure the nerve root was free of obstruction, visualized, no issues or trauma, closed over a Hemovac drain over vancomycin powder. Gelfoam placed on the exposed nerve with an associated fat graft. Closed with #1 Vicryl suture, 2-0 and 3-0 nylon on the skin. Sterile dressings applied. The patient returned to PACU stable. No apparent complications. SURGEON: Gerardo Gonzales DO ENVIRONMENTAL TECH: Ted Griffin PA-C. Sponge and needle count correct. No implants used. No bone graft used. I attest to the content of the Intraoperative Record and any orders documented therein. Any exception s are noted below.
--- NOTE | 2019-03-07 12:37 | Anesthesiology Progress Note ---
Date of Service March 07, 2019 Anesthesia Post Procedure Vital Signs Vital Signs: Temp Pulse Pulse Resp BP Pulse Ox 03/07/19 12:25 102 H 16 135/85 100 03/07/19 12:15 36.8 C 97 H 15 121/88 100 03/07/19 12:05 105 H 15 143/79 H 100 03/07/19 11:55 90 9 L 141/103 H 100 03/07/19 11:45 36.9 C 96 H 14 123/88 100 03/07/19 08:46 36.9 C 96 H 18 155/98 H 98 Pain Intensity Left Leg: Pain Intensity: 4 Transfer of Care Handoff Completed per policy Notes Mental Status: alert / awake / arousable and participated in evaluation Patient Amnestic to Procedure: Yes Nausea / Vomiting: adequately controlled Pain: adequately controlled Airway Patency, RR, SpO2: stable & adequate BP & HR: stable & adequate Hydration State: stable & adequate Anesthetic Complications: no major complications apparent and Pt Satisfied with anesthetic care
[2019-03-07] MEDS ORDERED: OXYCODONE HCL IR 5 MG TAB (IMMEDIATE RELEASE) PO PRN (13:11)
[2019-03-07] MEDS ORDERED: MAGNESIUM HYDROXIDE SUSP 30 ML UDC PO PRN (13:11)
[2019-03-07] MEDS ORDERED: ACETAMINOPHEN 1,000 MG/100 ML VIAL IV PRN (13:20)
[2019-03-07] MEDS: HYDROmorphone INJ 1 MG/ML SYRINGE IV PRN ×2 (13:23→20:09)
[2019-03-07] MEDS: SODIUM CHLORIDE 0.9% 1000ML 1,000 ML IV SCH (13:23)
[2019-03-07] MEDS ORDERED: CHECK SCOPOLAMINE PATCH PLACEMENT SCH (16:00)
[2019-03-07] MEDS: OXYCODONE HCL IR 5 MG TAB (IMMEDIATE RELEASE) PO PRN (16:12)
[2019-03-07] MEDS: KETOROLAC 30 MG/ML VIAL IV SCH (18:20)
[2019-03-07] MEDS: CEFAZOLIN 2000MG 2,000 MG/15 ML SYR IV SCH (18:20)
[2019-03-07] MEDS ORDERED: COUGH DROP (SUGAR FREE) LOZ 24 LOZ/1 BOX BUCCAL PRN (20:07)
[2019-03-07] MEDS: DULOXETINE HCL 60 MG CAP PO SCH (22:12)
[2019-03-07] MEDS: DOCUSATE SODIUM 100 MG CAP PO SCH (22:12)
[2019-03-08] MEDS: KETOROLAC 30 MG/ML VIAL IV SCH ×2 (00:09→05:23)
[2019-03-08] MEDS: OXYCODONE HCL IR 5 MG TAB (IMMEDIATE RELEASE) PO PRN ×4 (00:09→23:39)
[2019-03-08] MEDS: SODIUM CHLORIDE 0.9% 1000ML 1,000 ML IV SCH (00:19)
[2019-03-08] MEDS: CEFAZOLIN 2000MG 2,000 MG/15 ML SYR IV SCH ×2 (02:50→10:36)
--- NOTE | 2019-03-08 08:21 | Anesthesiology Progress Note ---
Date of Service March 08, 2019 Anesthesia Post Procedure Vital Signs Vital Signs: Temp Pulse Pulse Resp BP Pulse Ox 03/08/19 07:25 37.3 C 94 H 18 123/73 94 03/08/19 03:00 37.1 C 82 18 118/66 94 03/07/19 22:45 37.2 C 106 H 16 128/67 92 03/07/19 19:14 95 03/07/19 19:05 37.3 C 105 H 16 121/65 87 L 03/07/19 15:59 36.9 C 110 H 17 119/72 94 03/07/19 15:02 36.6 C 100 H 17 122/77 93 03/07/19 14:00 115 H 17 152/96 H 93 03/07/19 13:30 36.6 C 105 H 18 127/90 91 03/07/19 13:00 97 03/07/19 12:45 92 H 10 L 147/74 H 100 03/07/19 12:35 98 H 12 129/81 100 03/07/19 12:25 102 H 16 135/85 100 03/07/19 12:15 36.8 C 97 H 15 121/88 100 03/07/19 12:05 105 H 15 143/79 H 100 03/07/19 11:55 90 9 L 141/103 H 100 03/07/19 11:45 36.9 C 96 H 14 123/88 100 03/07/19 08:46 36.9 C 96 H 18 155/98 H 98 Pain Intensity Left Leg: Pain Intensity: 7 Back: Pain Intensity: 4 Notes Mental Status: alert / awake / arousable and participated in evaluation Patient Amnestic to Procedure: Yes Nausea / Vomiting: adequately controlled Pain: adequately controlled Airway Patency, RR, SpO2: stable & adequate BP & HR: stable & adequate Hydration State: stable & adequate Anesthetic Complications: no major complications apparent and Pt Satisfied with anesthetic care
[2019-03-08] MEDS: DOCUSATE SODIUM 100 MG CAP PO SCH ×2 (08:49→21:04)
[2019-03-08] MEDS: HYDROmorphone INJ 0.5 MG/0.5 ML SYR IV PRN (08:50)
[2019-03-08] MEDS: DULOXETINE HCL 60 MG CAP PO SCH (21:04)
[2019-03-09] MEDS ORDERED: BISACODYL 5 MG TABEC PO PRN (06:00)
[2019-03-09] MEDS: OXYCODONE HCL IR 5 MG TAB (IMMEDIATE RELEASE) PO PRN ×3 (06:25→20:22)
[2019-03-09] MEDS: DOCUSATE SODIUM 100 MG CAP PO SCH ×2 (07:50→20:22)
--- NOTE | 2019-03-09 09:25 | Urology Consultation ---
Date of Consultation March 09, 2019 Assessment & Plan (1) Postoperative urinary retention: 58yo F POD #1 s/p L5-S1 Laminotomy and discectomy by Dr. Gonzales with post operative retention Requiring straight cath consistently since surgery. Discussed potential causes with patient, she is understanding it will take time for bladder function to return. Will add flomax for max medical therapy, side effects reviewed. Pt very fearful of going home with indwelling catheter, also not ready to learn CIC. Plan to keep in house today for straight cath q6h retention as long as agreeable by orthopedic team. If no spontaneous void by tomorrow AM, will require indwelling catheter at that time. Will continue to follow while inpatient. Thank you for the consultation. History of Present Illness Reason for Consultation: retention Requesting Physician: retention Attending Physician: Gerardo Gonzales, DO History of Present Illness 58yo F POD #1 s/p L5-S1 Laminotomy and discectomy with post operative retention Pt has not been able to void since surgery yesterday, requiring straight cath for large volume x2. She states this has happened with previous procedures, but it starts to recover after 3-4days. Denies saddle anesthesia, no LE numbness. Ambulating with walker. Remote hx of stones, no issues in many years. No previous Urology evaluation. Acknowledges normal voiding pattern, no UTI symptoms prior to procedure. Denies dysuria, hematuria preoperatively. Allergies Allergy/AdvReac Type Severity Reaction Status Date / Time lorazepam AdvReac Intermediate DELIRIUM, Verified 03/07/19 08:43 CONFUSION zolpidem AdvReac Intermediate DELIRIUM, Verified 03/07/19 08:43 CONFUSION Home Medications Home Medications Medication Instructions Recorded Confirmed Type tramadol 50 mg PO Q6H PRN #30 tab 09/21/18 03/07/19 Rx cyclobenzaprine 10 mg PO Q8H PRN #21 tab 12/14/18 03/07/19 Rx ibuprofen 200 - 600 mg PO DIRECTED PRN 12/14/18 03/07/19 History trazodone 50 mg PO HS 12/29/18 03/07/19 History Hydrocodone 1 tab PO TID PRN 02/09/19 03/07/19 History duloxetine 60 mg PO QPM 02/09/19 03/07/19 History hydrocodone-acetaminophen [[place]] 1 tab PO Q6H PRN #40 tab 03/08/19 Rx Patient History Medical History Tubular adenoma of colon (Acute) Sacral radiculopathy (Acute) Insomnia (Acute) Dyslipidemia (Acute) Disc degeneration, lumbar (Acute) Depression with anxiety (Acute) Anemia (Acute) Temporomandibular joint disorder BILAT CLICKS HAS NEVER LOCKED Anxiety Depression Hyperlipidemia MILD ELEVATION-NO MEDS Hypertension MILD ELEVATION-NO MEDS Migraine HX Osteoarthritis Surgical History Fusion of spine LUMBAR H/O foot surgery LEFT History of arthroscopy R/L KNEES. 09/21/2018 at [facility] (Dr. Hutchinson). LMA no issues. 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 Board Carrier Required: No Beliefs That Will Affect Care: None Current Living Situation: Spouse Other Information That Helps Us Care for You: No Feels Safe at Home: Yes Safety Concerns: Feels Safe At This Time Smoking Status: Never smoker Do You Dip or Chew Tobacco: No ; Second Hand Exposure: No ; Hx Alcohol Use: No Hx Substance Use: No Review of Systems Constitutional: no fever and no chills Results & Data Vital Signs (Past 12 Hours) Vital Signs Temp Pulse Resp BP Pulse Ox 03/09/19 06:17 36.8 C 98 H 16 144/83 H 93 03/08/19 23:49 36.8 C 82 14 138/81 91 03/08/19 22:44 147/91 H PG Care Time/CCT Total # of Minutes Spent Total Time Spent with Patient: Total time spent is greater than 50% in supervisor cooler service rdination of care (as documented) at patient's floor/unit and/or counseling patient:
[2019-03-09] MEDS ORDERED: TAMSULOSIN HCL 0.4 MG CAP PO ONE (09:35)
[2019-03-09] MEDS: HYDROmorphone INJ 0.5 MG/0.5 ML SYR IV PRN (15:55)
[2019-03-09] MEDS: DULOXETINE HCL 60 MG CAP PO SCH (20:22)
[2019-03-10] MEDS: OXYCODONE HCL IR 5 MG TAB (IMMEDIATE RELEASE) PO PRN ×2 (02:30→08:37)
--- NOTE | 2019-03-10 07:31 | Urology Progress Note ---
Date of Service March 10, 2019 Assessment & Plan (1) Postoperative urinary retention: 58yo F POD #2 s/p L5-S1 Laminotomy and discectomy by Dr. Gonzales with post operative retention Return of spontaneous void overnight, feels her voiding pattern is back to normal Tolerating flomax. Okay to discharge home from perspective. Recommend tamsulosin x2 weeks to ensure adequate emptying. To call our office if having any residual issues. Thank you for allowing us to participate in the acute care of Ms. Ham. Please reconsult us with additional questions, concerns or changes in patient status. Subjective 58yo F POD #2 s/p L5-S1 Laminotomy and discectomy by Dr. Gonzales with post operative retention Pt able to begin spontaneously voiding last night. Voided 400cc, with bladder scan of approx 70cc. Pt feels her voiding is back to normal. Very pleased. No new issues or concerns from standpoint. Tolerating flomax. Review of Systems Review of Systems: All systems reviewed & are unremarkable except as noted in HPI & below Physical Exam Physical Exam: A&Ox3 RRR abd soft, nontender no LE edema Results & Data Vital Signs (Past 12 Hours) Vital Signs Temp Pulse Resp BP Pulse Ox 03/09/19 23:59 37.3 C 109 H 16 128/85 91 PG Care Time/CCT Total # of Minutes Spent Total Time Spent with Patient: Total time spent is greater than 50% in coordination of care (as documented) at patient's floor/unit and/or counseling patient:
[2019-03-10 07:41] VITALS: PULSE 79; TEMP 98.6; O2SAT 97
[2019-03-10] MEDS: DOCUSATE SODIUM 100 MG CAP PO SCH (08:37)
[2019-03-10 10:26] VITALS: BP 148/95
--- NOTE | 2019-03-10 23:59 | Discharge Summary ---
HOSPITAL COURSE: She is alert and oriented this morning and ready for discharge. She had an uneventful surgery and I think we helped her dramatically with her leg pain. She had urinary retention postoperatively which required a Rivera catheter, straight catheters, urology consult. At the time of discharge, she was able to void. Wounds were clean and dry. Dressings intact. Afebrile. She will be discharged home today. She has a followup appointment. She has a walker and she has a prescription for pain medication on her chart.
--- NOTE | 2019-03-11 12:10 | Coding Query ---
CODING QUERY To promote full compliance with coding requirements relating to patient care, provider participation is requested in all cases of therapy assistant uncertainty. Please assist us with the question(s) below: Coding Question(s): Postoperative Urinary Retention is documented. Please clarify below, in your clinical opinion. ( x) Postoperative Urinary Retention is most likely a Complication from the Surgery ( ) Postoperative Urinary Retention is most likely Other: Please Specify ( ) Postoperative Urinary Retention is Not a Complication from Surgery Physician's Response(s): The nerves to the bladder are quite close to where the surgery occurred and the patient had previously had difficulties with voiding after surgery before. Thank you Marleen Martines Principal Diagnosis: "that condition established after study, to be chiefly responsible for occasioning the admission of the patient to the hospital for care." Co-Existing Principal Diagnosis: "when two or more diagnoses equally meet the criteria for principal diagnosis as determined by the circumstances of admission, diagnostic work up, and/or therapy provided, and the Alphabetic Index, Tabular List, or another coding guideline does not provide sequencing direction, any one of the diagnoses may be sequenced first." "When the physician has documented what appears to be a current diagnosis in the body of the record, but has not included the diagnosis in the final diagnostic statement, the physician should be asked whether the diagnosis should be added." (Source Coding [facility] 2 QTR90. p3-4) ALINA
== END 2019-03-10 10:38 | disposition home or self-care (01) | DRG 520 ==
LOC: ASU 08:14 → 3E 08:14

== ENCOUNTER 2020-03-04 19:30 | Observation (INO) ==
[2020-03-04] MEDS ORDERED: ACETAMINOPHEN 500 MG TAB PO STA (19:57)
[2020-03-04] MEDS ORDERED: SODIUM CHLORIDE 0.9% 1000ML 1,000 ML IV SCH ×2 (20:00→20:57)
--- NOTE | 2020-03-04 20:35 | Emergency Department Note ---
Impression & Plan Fever, Acute UTI, Breathlessness, Chest pain ED Provider Note Provider: John Chang MD DATE OF SERVICE:03/04/2020 CHIEF COMPLAINT: Fever, fatigue, shortness of breath HISTORY OF PRESENT ILLNESS: Patient is a 59-year-old female history of kidney stones and back surgeries as well as GERD presenting here today complaining of onset yesterday evening around 7:00 of some left-sided chest pain radiating to left armpit as well as fevers developing overnight and shortness of breath. Patient states she is had little bit of heartburn issues in the past but not pain like this is persistent. Denies trauma. Reports fever greater than 100.8 earlier today and took some Motrin very early in the morning but nothing since. Patient states he feels warm and does endorse some palpitations and a fast heart rate. States she has had this occasionally the past but this is more persistent. States of urinary frequency but denies any burning or blood. Denies abdominal pain. States little bit of loose stools for the last several weeks as well as a little bit of generalized fatigue for last several weeks. Fever, worsening fatigue, and again the chest pain started just over night from last evening. Chest discomfort is been fairly persistent since yesterday. No cardiac history reported. 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 No sick contacts known. No history of coronavirus testing. No recent travel. No leg swelling. Denies any numbness or tingling in the legs or pain down the legs or again current back issues. REVIEW OF SYSTEMS: A total of 10 review of systems was obtained and negative except as stated above in the HPI. PAST MEDICAL HISTORY: As noted above MEDICATIONS: Reviewed home medications with the patient SOCIAL HISTORY:non-smoker, , works at [employer] PHYSICAL EXAM: GENERAL: alert and oriented in no acute distress on stretcher, appears fatigued Head: normocephalic and atraumatic EYES: No injection, discharge or icterus. NECK: Trachea midline. Supple. ENT: Mucous membranes pink and moist. Pharynx without erythema or exudate. LUNGS: Airway patent. No retractions. Breath sounds clear with good air entry bilaterally. HEART: Regular tachycardic rate and rhythm. No chest wall tenderness ABDOMEN: Soft and non-tender, without guarding or rebound. SKIN: Acyanotic, warm, dry, without rashes EXTREMITIES: Without swelling, tenderness or deformity NEUROLOGICAL: No focal deficits. No aphasia. No facial droop or slurred speech. EK bpm sinus tachycardia. No PVCs. No acute ST segment elevation or depression. Normal QTC. CONTINUOUS CARDIAC MONITORING: was ordered and showed a heart rate of 108 to 98 bpm in sinus tachycardia to sinus rhythm Patient's laboratory studies and imaging reviewed. Differential includes Viral syndrome, otitis, pharyngitis, pneumonia, influenza, meningitis, urinary tract infection, sepsis, bacteremia, as well as other pathologies. IMPRESSION/MEDICAL DECISION MAKING: Patient presents febrile with tachycardia. EKG obtained. Peers to be a sinus tachycardia. Given fluid hydration and Tylenol help with fever. Does not appear meningitic. X-ray obtained to help look for possible pneumonia. D-dimer sent help flu PE. Basic labs and cultures and lactate were sent. Again given IV fluid hydration as well as Tylenol here initially. Benign abdomen doubt acute intra-abdominal pathology given this exam. Urine was sent to look for possible infection. Denies any flank pain and seems atypical for kidney stone. Obviously by back issues concerning for back infection or injury at this time. Concern for coronavirus infection and maintaining precautions of rapid coronavirus sent. Per stat rad there is no evidence of acute PE aneurysm effusion or airspace consolidation. Chest x-ray did show some blunting of the left costophrenic angle but again CT did not correlate. Patient symptomatically states oxygen did help her symptoms a little bit. Procalcitonin is undetectable. TSH within normal and straight influenza is negative. Troponin is undetectable. Lactates not elevated. She is been going for more than 12 hours and doubt this is cardiac given this negative EKG and troponin. No evidence of pancreatitis or transaminitis. Given some Toradol here as well. Urine sample was obtained and urinalysis revealed nitrates and bacteria with some epithelial cells. Given this finding treated empirically with a dose of ceftriaxone. Patient again with fever and your persistent tachycardia. Discussed with her options of going home after ceftriaxone and monitoring symptoms but she wished to stay for observation which is reasonable given her fever and symptoms. Discussed with the hospit alist. CT abdomen pelvis to complete exclude occult intra-abdominal pathology particular kidney stones after discussion with the hospitalist although the patient denies abdominal pain or flank pain. DIAGNOSIS: Fever, acute UTI, chest pain, shortness of breath DISPOSITION: Hospitalist will evaluate Patient was agreeable with this plan. Preliminary Findings Only See Final Report For Complete Findings CTA CHEST: No evidence of acute pulmonary embolism. No thoracic aortic aneurysm. No significant pericardial effusion. No airspace consolidation, pleural effusion, or pneumothorax. No acute osseous findings. Radiologist: Rachael Che M.D. Study ready at 22:35 and initial results transmitted at 22:50 Past Med/Surg History Medical History (Updated 03/05/20 @ 00:27 by John Chang M.D.) Anemia Anxiety Depression Depression with anxiety Disc degeneration, lumbar Dyslipidemia Hyperlipidemia MILD ELEVATION-NO MEDS Hypertension MILD ELEVATION-NO MEDS Insomnia Migraine HX Osteoarthritis Sacral radiculopathy Temporomandibular joint disorder BILAT CLICKS HAS NEVER LOCKED Tubular adenoma of colon Urge incontinence Surgical History (Updated 03/22/19 @ 13:15 by Sun Ghotra) Fusion of spine LUMBAR H/O foot surgery LEFT H/O laminectomy History of arthroscopy R/L KNEES. 09/21/2018 at [facility] (Dr. Hutchinson). LMA no issues. History of section X 2 History of colonoscopy History of esophagogastroduodenoscopy (EGD) History of tonsillectomy History of total abdominal hysterectomy and bilateral salpingo-oophorectomy Nausea and vomiting after administration of anesthetic agent Family History Mother Family history of diabetes mellitus Family history of reaction to anesthesia PONV Brother Family history of reaction to anesthesia PONV Brother Family history of reaction to anesthesia PONV Social History Smoking Status: Never smoker Second Hand Exposure: No; Hx Alcohol Use: No Hx Substance Use: No Preferred Language: Faroese Communication Ability: Effective Principal Product 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 Required: No Beliefs That Will Affect Care: None Current Living Situation: Spouse Feels Safe at Home: Yes Assistive Devices: Walker Allergies Allergies Allergy/AdvReac Type Severity Reaction Status Date / Time lorazepam AdvReac Intermediate DELIRIUM, Verified 01/13/20 09:24 CONFUSION zolpidem AdvReac Intermediate DELIRIUM, Verified 01/13/20 09:24 CONFUSION Home Meds Home Medications Medication Instructions Recorded Confirmed ibuprofen 200 - 600 mg PO DIRECTED PRN 12/14/18 03/04/20 Previous Rx's Medication Instructions Recorded tramadol 50 mg tablet 50 mg PO Q6 PRN #30 tab 05/06/19 trazodone 100 mg tablet 100 mg PO HS #90 tab 06/23/19 duloxetine 30 mg capsule,delayed 90 mg PO DAILY #90 cap 01/13/20 release rizatriptan 10 mg disintegrating 10 mg PO Q2H PRN #9 tab 01/13/20 tablet oxybutynin chloride 5 mg 5 mg PO DAILY #30 tab 02/22/20 tablet,extended release 24 hr Results & Data (ED) Vital Signs Vital Signs - 24 hr 03/04/20 19:33 03/04/20 20:20 03/04/20 20:30 Temperature 38 C H Temperature Source Oral Pulse Rate 134 H 109 H Pulse Rate [Finger] Pulse Rate from SpO2 Sensor 110 H Respiratory Rate 18 19 Respiratory Effort / Characteristics Non-Labored Spontaneous Respiratory Depth Normal Blood Pressure 176/123 H 156/128 H Blood Pressure [Left Arm] Blood Pressure Mean 140 135 Blood Pressure Mean [Left Arm] Blood Pressure Position [Left Arm] Pulse Oximetry 93 91 96 Oxygen Delivery Method Room Air Room Air Oxygen Flow Rate Sepsis Recent Fever Within 48 Hours Yes Sepsis New/Unexplained Change in Mental Status No Sepsis Action Taken by Nursing No Action Required 03/04/20 20:44 03/04/20 20:50 03/04/20 20:53 Temperature Temperature Source Pulse Rate 119 H 102 H 113 H Pulse Rate [Finger] Pulse Rate from SpO2 Sensor 119 H 101 H Respiratory Rate 17 17 22 Respiratory Effort / Characteristics Non-Labored Respiratory Depth Blood Pressure Blood Pressure [Left Arm] Blood Pressure Mean Blood Pressure Mean [Left Arm] Blood Pressure Position [Left Arm] Pulse Oximetry 96 96 96 Oxygen Delivery Method Nasal Cannula Oxygen Flow Rate Sepsis Recent Fever Within 48 Hours Sepsis New/Unexplained Change in Mental Status Sepsis Action Taken by Nursing 03/04/20 20:55 03/04/20 20:57 03/04/20 20:58 Temperature Temperature Source Pulse Rate Pulse Rate [Finger] 113 H Pulse Rate from SpO2 Sensor Respiratory Rate 22 Respiratory Effort / Characteristics Respiratory Depth Blood Pressure Blood Pressure [Left Arm] 156/128 H Blood Pressure Mean Blood Pressure Mean [Left Arm] 137 Blood Pressure Position [Left Arm] Pulse Oximetry 96 95 96 Oxygen Delivery Method Nasal Cannula Nasal Cannula Nasal Cannula Oxygen Flow Rate 3 3 Sepsis Recent Fever Within 48 Hours Sepsis New/Unexplained Change in Mental Status Sepsis Action Taken by Nursing 03/04/20 21:00 03/04/20 21:01 03/04/20 21:10 Temperature Temperature Source Pulse Rate 110 H 116 H 114 H Pulse Rate [Finger] Pulse Rate from SpO2 Sensor 112 H 114 H 114 H Respiratory Rate 16 18 17 Respiratory Effort / Characteristics Respiratory Depth Blood Pressure 158/83 H Blood Pressure [Left Arm] Blood Pressure Mean 112 Blood Pressure Mean [Left Arm] Blood Pressure Position [Left Arm] Pulse Oximetry 96 96 97 Oxygen Delivery Method Oxygen Flow Rate Sepsis Recent Fever Within 48 Hours Sepsis New/Unexplained Change in Mental Status Sepsis Action Taken by Nursing 03/04/20 21:20 03/04/20 21:30 03/04/20 21:31 Temperature Temperature Source Pulse Rate 116 H 110 H 113 H Pulse Rate [Finger] Pulse Rate from SpO2 Sensor 116 H 109 H 113 H Respiratory Rate 14 14 16 Respiratory Effort / Characteristics Respiratory Depth Blood Pressure 149/102 H Blood Pressure [Left Arm] Blood Pressure Mean 117 Blood Pressure Mean [Left Arm] Blood Pressure Position [Left Arm] Pulse Oximetry 97 96 96 Oxygen Delivery Method Oxygen Flow Rate Sepsis Recent Fever Within 48 Hours Sepsis New/Unexplained Change in Mental Status Sepsis Action Taken by Nursing 03/04/20 21:40 03/04/20 21:50 03/04/20 22:00 Temperature Temperature Source Pulse Rate 114 H 113 H 105 H Pulse Rate [Finger] Pulse Rate from SpO2 Sensor 113 H 111 H 105 H Respiratory Rate 15 20 17 Respiratory Effort / Characteristics Respiratory Depth Blood Pressure 162/103 H Blood Pressure [Left Arm] Blood Pressure Mean 126 Blood Pressure Mean [Left Arm] Blood Pressure Position [Left Arm] Pulse Oximetry 97 98 97 Oxygen Delivery Method Oxygen Flow Rate Sepsis Recent Fever Within 48 Hours Sepsis New/Unexplained Change in Mental Status Sepsis Action Taken by Nursing 03/04/20 22:01 03/04/20 22:10 03/04/20 22:31 Temperature Temperature Source Pulse Rate 99 H 103 H Pulse Rate [Finger] Pulse Rate from SpO2 Sensor 101 H 103 H 100 H Respiratory Rate 22 18 Respiratory Effort / Characteristics Respiratory Depth Blood Pressure Blood Pressure [Left Arm] Blood Pressure Mean Blood Pressure Mean [Left Arm] Blood Pressure Position [Left Arm] Pulse Oximetry 97 97 96 Oxygen Delivery Method Oxygen Flow Rate Sepsis Recent Fever Within 48 Hours Sepsis New/Unexplained Change in Mental Status Sepsis Action Taken by Nursing 03/04/20 22:32 03/04/20 22:34 03/04/20 22:40 Temperature Temperature Source Pulse Rate 97 H 96 H Pulse Rate [Finger] 97 H Pulse Rate from SpO2 Sensor 97 H 96 H Respiratory Rate 13 16 18 Respiratory Effort / Characteristics Respiratory Depth Blood Pressure 153/99 H Blood Pressure [Left Arm] 153/99 H Blood Pressure Mean 107 Blood Pressure Mean [Left Arm] 117 Blood Pressure Position [Left Arm] Sitting Pulse Oximetry 97 96 97 Oxygen Delivery Method Nasal Cannula Oxygen Flow Rate 2 Sepsis Recent Fever Within 48 Hours Sepsis New/Unexplained Change in Mental Status Sepsis Action Taken by Nursing 03/04/20 22:50 03/04/20 23:00 03/04/20 23:01 Temperature Temperature Source Pulse Rate 101 H 98 H 100 H Pulse Rate [Finger] Pulse Rate from SpO2 Sensor 103 H 98 H 99 H Respiratory Rate 13 12 14 Respiratory Effort / Characteristics Respiratory Depth Blood Pressure 137/98 Blood Pressure [Left Arm] Blood Pressure Mean 112 Blood Pressure Mean [Left Arm] Blood Pressure Position [Left Arm] Pulse Oximetry 96 96 97 Oxygen Delivery Method Oxygen Flow Rate Sepsis Recent Fever Within 48 Hours Sepsis New/Unexplained Change in Mental Status Sepsis Action Taken by Nursing 03/04/20 23:10 03/04/20 23:20 03/04/20 23:24 Temperature 38.5 C H Temperature Source Oral Pulse Rate 103 H 100 H Pulse Rate [Finger] 101 H Pulse Rate from SpO2 Sensor 102 H 100 H Respiratory Rate 14 15 22 Respiratory Effort / Characteristics Non-Labored Respiratory Depth Blood Pressure Blood Pressure [Left Arm] 137/98 Blood Pressure Mean Blood Pressure Mean [Left Arm] 111 Blood Pressure Position [Left Arm] Pulse Oximetry 96 96 96 Oxygen Delivery Method Nasal Cannula Oxygen Flow Rate 2 Sepsis Recent Fever Within 48 Hours Sepsis New/Unexplained Change in Mental Status Sepsis Action Taken by Nursing 03/04/20 23:30 03/04/20 23:31 03/04/20 23:52 Temperature Temperature Source Pulse Rate 109 H 106 H Pulse Rate [Finger] Pulse Rate from SpO2 Sensor 109 H 105 H Respiratory Rate 18 13 Respiratory Effort / Characteristics Respiratory Depth Blood Pressure 136/106 H 128/90 Blood Pressure [Left Arm] Blood Pressure Mean 116 110 Blood Pressure Mean [Left Arm] Blood Pressure Position [Left Arm] Pulse Oximetry 97 98 Oxygen Delivery Method Oxygen Flow Rate Sepsis Recent Fever Within 48 Hours Sepsis New/Unexplained Change in Mental Status Sepsis Action Taken by Nursing 03/04/20 23:53 03/05/20 00:00 03/05/20 00:01 Temperature Temperature Source Pulse Rate 107 H 97 H 93 H Pulse Rate [Finger] Pulse Rate from SpO2 Sensor 108 H 96 H 93 H Respiratory Rate 23 12 14 Respiratory Effort / Characteristics Respiratory Depth Blood Pressure 135/93 Blood Pressure [Left Arm] Blood Pressure Mean 112 Blood Pressure Mean [Left Arm] Blood Pressure Position [Left Arm] Pulse Oximetry 94 93 94 Oxygen Delivery Method Oxygen Flow Rate Sepsis Recent Fever Within 48 Hours Sepsis New/Unexplained Change in Mental Status Sepsis Action Taken by Nursing 03/05/20 00:02 03/05/20 00:10 03/05/20 00:20 Temperature 38.0 C H Temperature Source Oral Pulse Rate 97 H 103 H Pulse Rate [Finger] Pulse Rate from SpO2 Sensor 97 H 104 H Respiratory Rate 13 13 Respiratory Effort / Characteristics Respiratory Depth Blood Pressure Blood Pressure [Left Arm] Blood Pressure Mean Blood Pressure Mean [Left Arm] Blood Pressure Position [Left Arm] Pulse Oximetry 93 94 Oxygen Delivery Method Oxygen Flow Rate Sepsis Recent Fever Within 48 Hours Sepsis New/Unexplained Change in Mental Status Sepsis Action Taken by Nursing 03/05/20 00:30 03/05/20 00:31 03/05/20 00:40 Temperature Temperature Source Pulse Rate 97 H 100 H 94 H Pulse Rate [Finger] Pulse Rate from SpO2 Sensor 95 H 100 H 97 H Respiratory Rate 14 13 16 Respiratory Effort / Characteristics Respiratory Depth Blood Pressure 143/100 H Blood Pressure [Left Arm] Blood Pressure Mean 108 Blood Pressure Mean [Left Arm] Blood Pressure Position [Left Arm] Pulse Oximetry 94 91 93 Oxygen Delivery Method Oxygen Flow Rate Sepsis Recent Fever Within 48 Hours Sepsis New/Unexplained Change in Mental Status Sepsis Action Taken by Nursing Laboratory Data Result diagrams: 03/04/20 20:26 03/04/20 20:26 Lab Results 03/04/20 03/04/20 03/04/20 Range/Units 20:26 20:26 20:26 WBC 10.80 (4.8-10.8) K/uL RBC 4.90 (4.2-5.4) M/uL Hgb 12.0 (12.0-16.0) g/dL Hct 38.1 (37-47) % MCV 77.8 L (80-100) fL MCH 24.5 L (25-34) pg MCHC 31.5 L (32-36) g/dL RDW Std Deviation 43.9 (36.4-46.3) fL RDW Coeff of Wander 15.5 H (11.5-14.5) % Plt Count 393 (130-400) K/uL MPV 9.3 (7.4-10.4) fL Immature Gran % (Auto) 0.2 % Neut % (Auto) 73.5 % Lymph % (Auto) 14.6 % [place] % (Auto) 10.7 % Eos % (Auto) 0.8 % Baso % (Auto) 0.2 % Neut # (Auto) 7.93 H (1.4-6.5) K/uL Lymph # (Auto) 1.58 (1.2-3.4) K/uL [place] # (Auto) 1.16 H (0.11-0.59) K/uL Eos # (Auto) 0.09 (0-0.5) K/uL Baso # (Auto) 0.02 (0-0.2) K/uL Immature Gran # (Auto) 0.02 (0.00-0.02) K/uL PT 11.0 (9.0-12.0) Seconds INR 1.0 (0.9-1.1) APTT 51.7 H* (21.0-31.0) Seconds PTT Ratio 1.9 D-Dimer 340 (0-500) ug/L FEU Sodium (136-145) mmol/L Potassium (3.5-5.1) mmol/L Chloride (98-107) mmol/L Carbon Dioxide (21-32) mmol/L Anion Gap (3-11) BUN (7-18) mg/dl Creatinine (0.6-1.2) mg/dl Est Cr Clr Drug Dosing ml/min Est GFR ( Amer) Est GFR (Non-Af Amer) BUN/Creatinine Ratio (10-20) Glucose (70-99) mg/dl Lactate (0.4-2.0) mmol/L Calcium (8.5-10.1) mg/dl Magnesium (1.8-2.4) mg/dl Total Bilirubin (0.2-1) mg/dl AST (15-37) U/L ALT (12-78) U/L Alkaline Phosphatase (45-117) U/L Troponin I (0-0.045) ng/ml Total Protein (6.4-8.2) gm/dl Albumin (3.4-5.0) gm/dl Globulin (2.5-4.0) gm/dl Albumin/Globulin Ratio (0.9-2) Lipase (73-393) U/L Procalcitonin < 0.05 (0-0.5) ng/ml TSH (0.300-4.500) uIu/ml Urine Color Urine Appearance (Clear) Urine pH (4.5-7.5) Ur Specific [place] (1.000-1.030) Urine Protein (Negative) Urine Glucose (UA) (Negative) Urine Ketones (Negative) Urine Blood (Negative) Urine Nitrite (Negative) Urine Bilirubin (Negative) Urine Urobilinogen (Negative) Ur Leukocyte Esterase (Negative) Urine WBC (Auto) (0-5) /hpf Urine RBC (Auto) (0-4) /hpf U Hyaline Cast (Auto) (0-5) /lpf U Epithel Cells (Auto) (0-5) /lpf Urine Bacteria (Auto) (Negative) COVID-19 Eval Order COVID-19 PCR (Negative) Influenza Type A (PCR) (Neg) Influenza Type B (PCR) (Neg) 03/04/20 03/04/20 03/04/20 Range/Units 20:26 20:26 20:30 WBC (4.8-10.8) K/uL RBC (4.2-5.4) M/uL Hgb (12.0-16.0) g/dL Hct (37-47) % MCV (80-100) fL MCH (25-34) pg MCHC (32-36) g/dL RDW Std Deviation (36.4-46.3) fL RDW Coeff of Wander (11.5-14.5) % Plt Count (130-400) K/uL MPV (7.4-10.4) fL Immature Gran % (Auto) % Neut % (Auto) % Lymph % (Auto) % [place] % (Auto) % Eos % (Auto) % Baso % (Auto) % Neut # (Auto) (1.4-6.5) K/uL Lymph # (Auto) (1.2-3.4) K/uL [place] # (Auto) (0.11-0.59) K/uL Eos # (Auto) (0-0.5) K/uL Baso # (Auto) (0-0.2) K/uL Immature Gran # (Auto) (0.00-0.02) K/uL PT (9.0-12.0) Seconds INR (0.9-1.1) APTT (21.0-31.0) Seconds PTT Ratio D-Dimer (0-500) ug/L FEU Sodium 138 (136-145) mmol/L Potassium 3.7 (3.5-5.1) mmol/L Chloride 106 (98-107) mmol/L Carbon Dioxide 27 (21-32) mmol/L Anion Gap 5.0 (3-11) BUN 16 (7-18) mg/dl Creatinine 0.91 (0.6-1.2) mg/dl Est Cr Clr Drug Dosing 90.4 ml/min Est GFR ( Amer) 80.0 Est GFR (Non-Af Amer) 69.1 BUN/Creatinine Ratio 17.5 (10-20) Glucose 108 H (70-99) mg/dl Lactate 0.8 (0.4-2.0) mmol/L Calcium 9.0 (8.5-10.1) mg/dl Magnesium 2.3 (1.8-2.4) mg/dl Total Bilirubin 0.4 (0.2-1) mg/dl AST 13 L (15-37) U/L ALT 22 (12-78) U/L Alkaline Phosphatase 159 H (45-117) U/L Troponin I < 0.015 (0-0.045) ng/ml Total Protein 7.8 (6.4-8.2) gm/dl Albumin 3.3 L (3.4-5.0) gm/dl Globulin 4.5 H (2.5-4.0) gm/dl Albumin/Globulin Ratio 0.7 L (0.9-2) Lipase 79 (73-393) U/L Procalcitonin (0-0.5) ng/ml TSH 1.290 (0.300-4.500) uIu/ml Urine Color Urine Appearance (Clear) Urine pH (4.5-7.5) Ur Specific [place] (1.000-1.030) Urine Protein (Negative) Urine Glucose (UA) (Negative) Urine Ketones (Negative) Urine Blood (Negative) Urine Nitrite (Negative) Urine Bilirubin (Negative) Urine Urobilinogen (Negative) Ur Leukocyte Esterase (Negative) Urine WBC (Auto) (0-5) /hpf Urine RBC (Auto) (0-4) /hpf U Hyaline Cast (Auto) (0-5) /lpf U Epithel Cells (Auto) (0-5) /lpf Urine Bacteria (Auto) (Negative) COVID-19 Eval Order COVID-19 PCR (Negative) Influenza Type A (PCR) Neg for Influ A (Neg) Influenza Type B (PCR) Neg for Influ B (Neg) 03/04/20 03/04/20 03/04/20 Range/Units 20:30 20:30 23:45 WBC (4.8-10.8) K/uL RBC (4.2-5.4) M/uL Hgb (12.0-16.0) g/dL Hct (37-47) % MCV (80-100) fL MCH (25-34) pg MCHC (32-36) g/dL RDW Std Deviation (36.4-46.3) fL RDW Coeff of [place]ander (11.5-14.5) % Plt Count (130-400) K/uL MPV (7.4-10.4) fL Immature Gran % (Auto) % Neut % (Auto) % Lymph % (Auto) % [place] % (Auto) % Eos % (Auto) % Baso % (Auto) % Neut # (Auto) (1.4-6.5) K/uL Lymph # (Auto) (1.2-3.4) K/uL [place] # (Auto) (0.11-0.59) K/uL Eos # (Auto) (0-0.5) K/uL Baso # (Auto) (0-0.2) K/uL Immature Gran # (Auto) (0.00-0.02) K/uL PT (9.0-12.0) Seconds INR (0.9-1.1) APTT (21.0-31.0) Seconds PTT Ratio D-Dimer (0-500) ug/L FEU Sodium (136-145) mmol/L Potassium (3.5-5.1) mmol/L Chloride (98-107) mmol/L Carbon Dioxide (21-32) mmol/L Anion Gap (3-11) BUN (7-18) mg/dl Creatinine (0.6-1.2) mg/dl Est Cr Clr Drug Dosing ml/min Est GFR ( Amer) Est GFR (Non-Af Amer) BUN/Creatinine Ratio (10-20) Glucose (70-99) mg/dl Lactate (0.4-2.0) mmol/L Calcium (8.5-10.1) mg/dl Magnesium (1.8-2.4) mg/dl Total Bilirubin (0.2-1) mg/dl AST (15-37) U/L ALT (12-78) U/L Alkaline Phosphatase (45-117) U/L Troponin I (0-0.045) ng/ml Total Protein (6.4-8.2) gm/dl Albumin (3.4-5.0) gm/dl Globulin (2.5-4.0) gm/dl Albumin/Globulin Ratio (0.9-2) Lipase (73-393) U/L Procalcitonin (0-0.5) ng/ml TSH (0.300-4.500) uIu/ml Urine Color Yellow Urine Appearance Cloudy A (Clear) Urine pH 7.0 (4.5-7.5) Ur Specific [place] 1.021 (1.000-1.030) Urine Protein Negative (Negative) Urine Glucose (UA) Negative (Negative) Urine Ketones Negative (Negative) Urine Blood Trace H (Negative) Urine Nitrite Positive A (Negative) Urine Bilirubin Negative (Negative) Urine Urobilinogen Negative (Negative) Ur Leukocyte Esterase Negative (Negative) Urine WBC (Auto) 1-5 (0-5) /hpf Urine RBC (Auto) 0-4 (0-4) /hpf U Hyaline Cast (Auto) 1-5 (0-5) /lpf U Epithel Cells (Auto) 10-20 H (0-5) /lpf Urine Bacteria (Auto) 4+ H (Negative) COVID-19 Eval Order Covid19 Done at [facility] COVID-19 PCR NEGATIVE (Negative) Influenza Type A (PCR) (Neg) Influenza Type B (PCR) (Neg) Administered Medications Discontinued Medications Acetaminophen (Acetaminophen 500 Mg Tab) 1,000 mg PO NOW STA Stop: 03/04/20 19:58 Last Admin: 03/04/20 21:06 Dose: 1,000 mg Documented by: [id number] Sodium Chloride (Nss 1000ml) 1,000 mls @ 999 mls/hr IV .Q1H1M JENNIFER Stop: 03/04/20 20:57 Last Infusion: 03/05/20 01:19 Dose: 0 mls/hr Documented by: [id number] Admin: 03/04/20 20:59 Dose: 999 mls/hr Documented by: [id number] Sodium Chloride (Nss 1000ml) 1,000 mls @ 999 mls/hr IV .Q1H1M JENNIFER Stop: 03/04/20 21:56 Last Infusion: 03/05/20 01:19 Dose: 0 mls/hr Documented by: [id number] Admin: 03/04/20 22:01 Dose: 999 mls/hr Documented by: [id number] Ceftriaxone Sodium (Rocephin) 2,000 mg in 70 mls @ 140 mls/hr IV NOW STA Stop: 03/05/20 00:40 Last Infusion: 03/05/20 01:19 Dose: 0 mls/hr Documented by: [id number] Admin: 03/05/20 00:41 Dose: 140 mls/hr Documented by: [id number] Ioversol (Optiray 320 125ml) 119 ml IV ONCE ONE Stop: 03/04/20 22:24 Last Admin: 03/04/20 22:24 Dose: 119 ml Documented by: [id number] Ketorolac Tromethamine (Ketorolac Tromethamine 15 Mg/Ml Vial) 15 mg IV NOW STA Stop: 03/04/20 23:37 Last Admin: 03/05/20 00:02 Dose: 15 mg Documented by: [id number] Discharge Plan Visit Data Chief Complaint: Fever Stated Complaint: FEVER-PAIN IN [id number] ED Provider: John Chang Discharge Problem: Fever, Acute UTI, Breathlessness, Chest pain Patient Disposition: Being Evaluated by Hospitalist Forms Stand Alone Forms: [facility] Prescriptions Prescriptions: No Action tramadol 50 mg tablet 50 mg PO Q6 PRN (Reason: pain) Qty: 30 RF: 0 trazodone 100 mg tablet 100 mg PO HS Qty: 90 RF: 3 duloxetine 30 mg capsule,delayed release(DR/EC) 90 mg PO DAILY Qty: 90 RF: 5 rizatriptan 10 mg tablet,disintegrating 10 mg PO Q2H PRN (Reason: migraine headache) Qty: 9 RF: 5 oxybutynin chloride 5 mg tablet extended release 24hr 5 mg PO DAILY Qty: 30 RF: 5 ibuprofen 600 mg Tablet 200 - 600 mg PO DIRECTED PRN (Reason: Pain) RF: 0 Referrals Referrals: Sarita Chavarria MD [Primary Care Provider] - Discharge Problem: Fever Qualifiers: Fever type: unspecified Qualified Code(s): R50.9 - Fever, unspecified Chest pain Qualifiers: Chest pain type: unspecified Qualified Code(s): R07.9 - Chest pain, unspecified
[2020-03-04 20:49] LABS: Basophils # (auto) 0.02 K/uL (0-0.2); Basophils % (auto) 0.2 %; Eosinophils # (auto) 0.09 K/uL (0-0.5); Eosinophils % (auto) 0.8 %; Hematocrit (blood only) 38.1 % (37-47); Immature Granulocytes # (auto) 0.02 K/uL (0.00-0.02); Immature Granulocytes % (auto) 0.2 %; Lymphocytes # (auto) 1.58 K/uL (1.2-3.4); Lymphocytes % (auto) 14.6 %; Mean Corpuscular Hemoglobin 24.5 pg (25-34); Mean Corpuscular Hgb Conc 31.5 g/dL (32-36); Mean Corpuscular Volume 77.8 fL (80-100); Mean Platelet Volume 9.3 fL (7.4-10.4); Monocytes # (auto) 1.16 K/uL (0.11-0.59); Monocytes % (auto) 10.7 %; Neutrophils # (auto) 7.93 K/uL (1.4-6.5); Neutrophils % (auto) 73.5 %; Platelet Count 393 K/uL (130-400); RDW Coefficient of Variation 15.5 % (11.5-14.5); RDW Standard Deviation 43.9 fL (36.4-46.3)
[2020-03-04 21:05] LABS: Alanine Aminotransferase 22 U/L (12-78); Albumin Level 3.3 gm/dl (3.4-5.0); Aspartate Aminotransferase 13 U/L (15-37); BUN Creatinine Ratio 17.5 (10-20); Blood Urea Nitrogen 16 mg/dl (7-18); Carbon Dioxide 27 mmol/L (21-32); Chloride 106 mmol/L (98-107); Creatinine Clr Calc Pharmacy 90.4 ml/min; Est GFR (Non-African American) 69.1; Glucose 108 mg/dl (70-99); Lipase 79 U/L (73-393); Magnesium 2.3 mg/dl (1.8-2.4); Potassium 3.7 mmol/L (3.5-5.1); Sodium 138 mmol/L (136-145)
[2020-03-04 21:16] LABS: Albumin Globulin Ratio 0.7 (0.9-2); Alkaline Phosphatase 159 U/L (45-117); Bilirubin,Total 0.4 mg/dl (0.2-1); D Dimer 340 ug/L FEU (0-500); Globulin 4.5 gm/dl (2.5-4.0); Partial Thromboplastin Ratio 1.9; Total Protein 7.8 gm/dl (6.4-8.2); Troponin I < 0.015 ng/ml (0-0.045)
[2020-03-04 21:17] LABS: Partial Thromboplastin Time 51.7 Seconds (21.0-31.0)
[2020-03-04 21:41] LABS: Influenza A virus by PCR Neg for Influ A (Neg); Influenza B virus by PCR Neg for Influ B (Neg)
[2020-03-04] MEDS ORDERED: OPTIRAY 320 125ml IV ONE (22:23)
[2020-03-04] MEDS ORDERED: KETOROLAC TROMETHAMINE 15 MG/ML VIAL IV STA (23:36)
[2020-03-05 00:07] LABS: Appearance Urine Cloudy (Clear); Bacteria Urine Automated 4+ (Negative); Bilirubin Urine Negative (Negative); Blood Urine Trace (Negative); Color Urine Yellow; Glucose Urine UA Negative (Negative); Ketones Urine Negative (Negative); Leukocyte Esterase Urine Negative (Negative); Nitrite Urine Positive (Negative); Protein Urine Negative (Negative); RBC Urine Automated 0-4 /hpf (0-4); Specific Gravity Urine 1.021 (1.000-1.030); Urobilinogen Urine Negative (Negative)
[2020-03-05] MEDS ORDERED: cefTRIAXone SODIUM 2,000 MG/70 ML BAG IV STA (00:11)
--- NOTE | 2020-03-05 02:47 | History & Physical Report ---
Date of Service March 05, 2020 Assessment & Plan (1) Acute UTI: Patient has been significantly febrile in the emergency department, to a ~max temperature of 101.3. CT of abdomen pelvis does not suggest pyelonephritis, however, there were concerns for a subclinical process. Follow urine culture and sensitivities. Continue ceftriaxone 2 g IV daily. Patient did receive 2 L normal saline while in the ED. NSS + KCl 20 mEq at 100 mils per hour. Present on Admission?: Yes (2) Chest pain: The patient will be admitted to telemetry for serial cardiac enzymes, serial EKG's, cardiac rhythm monitoring and a 2-D echocardiogram with Dopplers. Present on Admission?: Yes (3) Chronic back pain: Continue duloxetine 90 mg p.o. daily and tramadol 50 mg p.o. every 6 hours as needed Present on Admission?: Yes (4) Insomnia: Continue trazodone 100 mg p.o. at bedtime Present on Admission?: Yes (5) Depression with anxiety: Continue duloxetine 90 mg p.o. daily Present on Admission?: Yes History of Present Illness Chief Complaint: The patient presents to the emergency department with complaint of fevers that developed overnight, shortness of breath, and reports generalized pain all over her body. Primary Care Provider: Sarita Chavarria MD The patient is a 59-year-old female with a past medical history including urge incontinence, migraine, acid reflux, postoperative urinary retention, chronic back pain, epidural abscess, occlusion of PICC line, pseudoarthrosis after fusion or arthrodesis, left renal calculus, tubular adenoma of colon, sacral radiculopathy, insomnia, dyslipidemia, lumbar disc degeneration, depression with anxiety and anemia. Patient's main complaint at this time is severe fatigue, and that her body hurts all over. She denies any recent travels or sick exposures. She was negative for COVID-19 and influenza infections while in the ED tonight. Repeat temperature in the emergency department this evening was 101.3 F. The patient notes that she did see her outpatient office 1 week ago regarding urinary incontinence, and was started on oxybutynin chloride 5 mg extended release at that time. Allergies Allergy/AdvReac Type Severity Reaction Status Date / Time lorazepam AdvReac Intermediate DELIRIUM, Verified 01/13/20 09:24 CONFUSION zolpidem AdvReac Intermediate DELIRIUM, Verified 01/13/20 09:24 CONFUSION Home Medications Home Medications Medication Instructions Recorded Confirmed Type ibuprofen 200 - 600 mg PO DIRECTED PRN 12/14/18 03/04/20 History tramadol 50 mg tablet 50 mg PO Q6 PRN #30 tab 05/06/19 03/04/20 Rx trazodone 100 mg tablet 100 mg PO HS #90 tab 06/23/19 03/04/20 Rx duloxetine 30 mg capsule,delayed 90 mg PO DAILY #90 cap 01/13/20 03/04/20 Rx release rizatriptan 10 mg disintegrating 10 mg PO Q2H PRN #9 tab 01/13/20 03/04/20 Rx tablet oxybutynin chloride 5 mg 5 mg PO DAILY #30 tab 02/22/20 03/04/20 Rx tablet,extended release 24 hr Past Med/Surg History Medical History (Updated 03/05/20 @ 00:27 by John Chang M.D.) Anemia Anxiety Depression Depression with anxiety Disc degeneration, lumbar Dyslipidemia Hyperlipidemia MILD ELEVATION-NO MEDS Hypertension MILD ELEVATION-NO MEDS Insomnia Migraine HX Osteoarthritis Sacral radiculopathy Temporomandibular joint disorder BILAT CLICKS HAS NEVER LOCKED Tubular adenoma of colon Urge incontinence Surgical History (Updated 03/22/19 @ 13:15 by Sun Ghotra) Fusion of spine LUMBAR H/O foot surgery LEFT H/O laminectomy History of arthroscopy R/L KNEES. 09/21/2018 at [facility] (Dr. Hutchinson). LMA no issues. History of section X 2 History of colonoscopy History of esophagogastroduodenoscopy (EGD) History of tonsillectomy History of total abdominal hysterectomy and bilateral salpingo-oophorectomy Nausea and vomiting after administration of anesthetic agent Family History Mother Family history of diabetes mellitus Family history of reaction to anesthesia PONV Brother Family history of reaction to anesthesia PONV Brother Family history of reaction to anesthesia PONV Social History Smoking Status: Never smoker Second Hand Exposure: No; Hx Alcohol Use: No Hx Substance Use: No Preferred Language: Danish Communication Ability: Effective Fish Tender Required: No Beliefs That Will Affect Care: None Current Living Situation: Spouse Current Living Situation Comment: in home with Feels Safe at Home: Yes Safety Concerns: Feels Safe At This Time Assistive Devices: Glasses Review of Systems Review of Systems: The patient denies chest pain, palpitations, cough, lower extremity swelling, sore throat, fevers, chills, sweats, nausea, vomiting, diarrhea , constipation, abdominal pain, pelvic pain, blood in urine or stool, memory loss, loss of consciousness, rash, abnormal bruising or bleeding, imbalance, focal weakness, numbness or tingling in arms or legs, neck pain, or night sweats. The review of systems is otherwise negative other than for that already noted above, and at least 10 systems have been reviewed. Physical Exam Physical Exam: The patient is awake, alert and oriented 3, looks extremely fatigued, essentially minimal moving during exam due to pain, normocephalic and atraumatic. HEENT--PERRL, EOMI, mucous membranes and oropharynx dry. Neck--supple. No JVD. No bruits. Thyroid normal, trachea midline, no adenopathy. Heart--normal S1 and S2. No murmurs, rubs or gallops. Lungs--clear bilaterally, no respiratory distress, no accessory muscle use. Abdomen--normal bowel sounds and soft. Nontender. Nondistended. Extremities--no cyanosis or clubbing. No edema. Dermatologic--normal skin turgor, normal color, no abnormal lymph nodes, no rash. Neurologic--cranial nerves II through XII grossly intact. Rheumatologic--limited exam due to pain Psychiatric--normal affect. Results & Data Results & Data ([facility]) Vital Signs (Past 12 Hours) Vital Signs Temp Pulse Pulse Resp BP BP Pulse Ox 03/05/20 02:02 99.0 F 03/05/20 01:59 90 20 155/124 H 93 03/05/20 01:50 89 22 93 03/05/20 01:40 91 H 10 L 92 03/05/20 01:31 89 11 L 92 03/05/20 01:30 89 17 155/124 H 92 03/05/20 01:20 94 H 10 L 93 03/05/20 01:10 96 H 13 94 03/05/20 01:01 97 H 12 92 03/05/20 01:00 95 H 10 L 132/100 93 03/05/20 00:50 96 H 13 93 03/05/20 00:40 94 H 16 93 03/05/20 00:31 100 H 13 143/100 H 91 03/05/20 00:30 97 H 14 94 03/05/20 00:20 103 H 13 94 03/05/20 00:10 97 H 13 93 03/05/20 00:02 100.4 F H 03/05/20 00:01 93 H 14 94 03/05/20 00:00 97 H 12 135/93 93 03/04/20 23:53 107 H 23 94 03/04/20 23:52 128/90 03/04/20 23:31 106 H 13 98 03/04/20 23:30 109 H 18 136/106 H 97 03/04/20 23:24 101.3 F H 101 H 22 137/98 96 03/04/20 23:20 100 H 15 96 03/04/20 23:10 103 H 14 96 03/04/20 23:01 100 H 14 97 03/04/20 23:00 98 H 12 137/98 96 03/04/20 22:50 101 H 13 96 03/04/20 22:40 96 H 18 97 03/04/20 22:34 97 H 16 153/99 H 96 03/04/20 22:32 97 H 13 153/99 H 97 03/04/20 22:31 96 03/04/20 22:10 103 H 18 97 03/04/20 22:01 99 H 22 97 03/04/20 22:00 105 H 17 162/103 H 97 03/04/20 21:50 113 H 20 98 03/04/20 21:40 114 H 15 97 03/04/20 21:31 113 H 16 96 03/04/20 21:30 110 H 14 149/102 H 96 03/04/20 21:20 116 H 14 97 03/04/20 21:10 114 H 17 97 03/04/20 21:01 116 H 18 96 03/04/20 21:00 110 H 16 158/83 H 96 03/04/20 20:58 96 03/04/20 20:57 113 H 22 156/128 H 95 03/04/20 20:55 96 03/04/20 20:53 113 H 22 96 03/04/20 20:50 102 H 17 96 03/04/20 20:44 119 H 17 96 03/04/20 20:30 109 H 19 156/128 H 96 03/04/20 20:20 91 03/04/20 19:33 100.4 F H 134 H 18 176/123 H 93 Laboratory Results Laboratory Results WBC 10.80 K/uL (4.8-10.8) 03/04/20 20: RBC 4.90 M/uL (4.2-5.4) 03/04/20 20: Hgb 12.0 g/dL (12.0-16.0) 03/04/20 20: Hct 38.1 % (37-47) 03/04/20 20: MCV 77.8 fL (80-100) L 03/04/20 20: MCH 24.5 pg (25-34) L 03/04/20: MCHC 31.5 g/dL (32-36) L 03/04/20: RDW Std Deviation 43.9 fL (36.4-46.3) 03/04/20 20: RDW Coeff of Wander 15.5 % (11.5-14.5) H 03/04/20: Plt Count 393 K/uL (130-400) 03/04/20 20: MPV 9.3 fL (7.4-10.4) 03/04/20 20: Immature Gran % (Auto) 0.2 % 03/04/20 20: Neut % (Auto) 73.5 % 03/04/20: Lymph % (Auto) 14.6 % 03/04/20 20: [place] % (Auto) 10.7 % 03/04/20: Eos % (Auto) 0.8 % 03/04/20 20: Baso % (Auto) 0.2 % 03/04/20 20: Neut # (Auto) 7.93 K/uL (1.4-6.5) H 03/04/20 20: Lymph # (Auto) 1.58 K/uL (1.2-3.4) 03/04/20 20: [place] # (Auto) 1.16 K/uL (0.11-0.59) H 03/04/20 20: Eos # (Auto) 0.09 K/uL (0-0.5) 03/04/20 20: Baso # (Auto) 0.02 K/uL (0-0.2) 03/04/20 20: Immature Gran # (Auto) 0.02 K/uL (0.00-0.02) 03/04/20 20: PT 11.0 Seconds (9.0-12.0) 03/04/20: INR 1.0 (0.9-1.1) 03/04/20 20: APTT 51.7 Seconds (21.0-31.0) H* 03/04/20: PTT Ratio 1.9 03/04/20: D-Dimer 340 ug/L FEU (0-500) 03/04/20 20: Sodium 138 mmol/L (136-145) 03/04/20 20: Potassium 3.7 mmol/L (3.5-5.1) 03/04/20: Chloride 106 mmol/L (98-107) 03/04/20: Carbon Dioxide 27 mmol/L (21-32) 03/04/20 20: Anion Gap 5.0 (3-11) 03/04/20: BUN 16 mg/dl (7-18) 03/04/20: Creatinine 0.91 mg/dl (0.6-1.2) 03/04/20 20: Est Cr Clr Drug Dosing 90.4 ml/min 03/04/20 20: Est GFR ( Amer) 80.0 03/04/20: Est GFR (Non-Af Amer) 69.1 03/04/20: BUN/Creatinine Ratio 17.5 (10-20) 03/04/20: Glucose 108 mg/dl (70-99) H 03/04/20: Lactate 0.8 mmol/L (0.4-2.0) 03/04/20 20: Calcium 9.0 mg/dl (8.5-10.1) 03/04/20 20: Magnesium 2.3 mg/dl (1.8-2.4) 03/04/20: Total Bilirubin 0.4 mg/dl (0.2-1) 03/04/20 20: AST 13 U/L (15-37) L 03/04/20 20: ALT 22 U/L (12-78) 03/04/20 20: Alkaline Phosphatase 159 U/L (45-117) H 03/04/20 20: Troponin I < 0.015 ng/ml (0-0.045) 03/04/20 20: Total Protein 7.8 gm/dl (6.4-8.2) 03/04/20 20: Albumin 3.3 gm/dl (3.4-5.0) L 03/04/20: Globulin 4.5 gm/dl (2.5-4.0) H 03/04/20: Albumin/Globulin Ratio 0.7 (0.9-2) L 03/04/20: Lipase 79 U/L (73-393) 03/04/20: Procalcitonin < 0.05 ng/ml (0-0.5) 03/04/20: TSH 1.290 uIu/ml (0.300-4.500) 03/04/20 20: Urine Color Yellow 03/04/20 23:45 Urine Appearance Cloudy (Clear) A 03/04/20:45 Urine pH 7.0 (4.5-7.5) 03/04/20 23:45 Ur Specific [place] 1.021 (1.000-1.030) 03/04/20 23:45 Urine Protein Negative (Negative) 03/04/20 23:45 Urine Glucose (UA) Negative (Negative) 03/04/20 23:45 Urine Ketones Negative (Negative) 03/04/20 23:45 Urine Blood Trace (Negative) H 03/04/20 23:45 Urine Nitrite Positive (Negative) A 03/04/20 23:45 Urine Bilirubin Negative (Negative) 03/04/20 23:45 Urine Urobilinogen Negative (Negative) 03/04/20 23:45 Ur Leukocyte Esterase Negative (Negative) 03/04/20 23:45 Urine WBC (Auto) 1-5 /hpf (0-5) 03/04/20 23:45 Urine RBC (Auto) 0-4 /hpf (0-4) 03/04/20 23:45 U Hyaline Cast (Auto) 1-5 /lpf (0-5) 03/04/20 23:45 U Epithel Cells (Auto) 10-20 /lpf (0-5) H 03/04/20 23:45 Urine Bacteria (Auto) 4+ (Negative) H 03/04/20 23:45 COVID-19 Eval Order Covid19 Done at [facility] 03/04/20 20:30 COVID-19 PCR NEGATIVE (Negative) 03/04/20 20:30 Influenza Type A (PCR) Neg for Influ A (Neg) 03/04/20 20:30 Influenza Type B (PCR) Neg for Influ B (Neg) 03/04/20 20:30 Diagnostic Findings [facility] Patient: MOMO KRUEGER (Female) : 60 Status: ER Date: 03/05/20 03:26 Room #: History: fever uti poss stone appen pres Slices: [phone] Priors: Tech: Justen Villalobos @ [phone] Exams: CT ABDOMEN & PELVIS Without Contrast Contrast: Accession Numbers: [id number] Preliminary Findings Only See Final Report For Complete Findings CT ABDOMEN & PELVIS Without Contrast: Contrast material within the renal collecting systems presumably from a recent contrasted exam. No visualized stone. No obstructive uropathy. Liver, gallbladder, pancreas, spleen, adrenal glands, and kidneys are normal in appearance. Status post hysterectomy. The cecum is well outlined in fat however I do not see the appendix. No inflammatory changes or secondary signs of acute appendicitis. Remainder of the GI tract is unremarkable. No free fluid, fluid collection, or free air. Lumbar fusion without complication. Radiologist: Mehul Redding MD Study ready at 03:34 and initial results transmitted at 04:46 *This report constitutes a preliminary interpretation only. Non-acute findings felt to be unrelated to the clinical presentation may not be discussed in this report. The study will be interpreted and a final report will be generated by the local Radiologist the following shift. To reach the hospital radiology department call [phone]. If a discrepancy is found between the preliminary and final interpretations of this study, please notify us via our Client Portal at [email or web address].You can also fax this report with a description of the discrepancy, or include the final report, to our daytime fax number [phone].If faxing, please indicate the severity of discrepancy using one of the following categories: [ ] 1 - Agree/Informational [ ] 2 - Unlikely to Affect Management [ ] 3 - Possible Eventual Change of Management [ ] 4 - Probable Immediate Change of Management For all other patient related information, please fax us at [phone]. [id number] [facility] Patient: MOMO KRUEGER (Female) : 60 Status: ER Date: 03/04/20 22:30 Room #: History: chest pain short of breath 119 ml optiray 320 Slices: 722 Priors: Tech: Oren Orozco @ [phone] Exams: CTA CHEST Contrast: IV Amt: 119ML Accession Numbers: [id number] Preliminary Findings Only See Final Report For Complete Findings CTA CHEST: No evidence of acute pulmonary embolism. No thoracic aortic aneurysm. No significant pericardial effusion. No airspace consolidation, pleural effusion, or pneumothorax. No acute osseous findings. Radiologist: Rachael Che M.D. Study ready at 22:35 and initial results transmitted at 22:50 *This report constitutes a preliminary interpretation only. Non-acute findings felt to be unrelated to the clinical presentation may not be discussed in this report. The study will be interpreted and a final report will be generated by the local Radiologist the following shift. To reach the hospital radiology department call [phone]. If a discrepancy is found between the preliminary and final interpretations of this study, please notify us via our Client Portal at [email or web address] can also fax this report with a description of the discrepancy, or include the final report, to our daytime fax number [phone].If faxing, please indicate the severity of discrepancy using one of the following categories: [ ] 1 - Agree/Informational [ ] 2 - Unlikely to Affect Management [ ] 3 - Possible Eventual Change of Management [ ] 4 - Probable Immediate Change of Management For all other patient related information, please fax us at [phone]. [id number] Code Status & VTE Plan Code Status Full code VTE Prophylaxis Plan VTE Prophylaxis will be ordered: Yes PG Care Time/CCT Total # of Minutes Spent Total Time Spent with Patient: Total time spent is greater than 50% in coordination of care (as documented) at patient's floor/unit and/or counseling patient: Coding Level of Care Code 68065 OBS Care - Level 3 Diagnoses Acute UTI N39.0 Chest pain R07.9 Chest pain type: unspecified Chronic back pain M54.9; G89.29 Insomnia G47.00 Depression with anxiety F41.8 (1) Chest pain Chest pain type: unspecified Qualified Code(s): R07.9 - Chest pain, unspecified
[2020-03-05] MEDS ORDERED: ACETAMINOPHEN 325 MG TAB PO PRN (03:47)
[2020-03-05] MEDS ORDERED: TRAMADOL HCL 50 MG TABLET PO PRN (03:47)
[2020-03-05] MEDS ORDERED: ALUMINUM/MAGNESIUM SUSP 30 ML UDC PO PRN (03:47)
[2020-03-05] MEDS ORDERED: ONDANSETRON INJ 2 MG/ML 2 ML VIAL IV PRN (03:47)
[2020-03-05] MEDS ORDERED: MAGNESIUM HYDROXIDE SUSP 30 ML UDC PO PRN (03:47)
[2020-03-05] MEDS ORDERED: RIZATRIPTAN BENZOATE 10 MG TAB PO PRN (03:54)
[2020-03-05] MEDS: NSS + 20MEQ KCL 20 MEQ/1,000 ML BAG IV SCH ×2 (04:18→15:13)
--- NOTE | 2020-03-05 06:48 | CT Scan Report ---
CT OF THE ABDOMEN AND PELVIS WITHOUT CONTRAST CLINICAL HISTORY: fever, uti, ?stone COMPARISON STUDY: CT of the abdomen and pelvis May 27, 2016. TECHNIQUE: Axial images of the abdomen and pelvis were obtained without IV contrast. Images were revi ewed in the axial, sagittal, and coronal planes. Automated exposure control was utilized for the nuvia dy. A dose lowering technique was utilized adhering to the principles of ALARA. FINDINGS: Sensitivity for detection of renal calculi is diminished given contrast within the collecti ng systems from recent contrast-enhanced chest CT but none are identified. There are no ureteral calc chip identified on this exam. There is no hydronephrosis or hydroureter. There is also contrast within the bladder. Evaluation of the remainder of the abdomen and pelvis is suboptimal as unenhanced exami nation. A water attenuation lesion measuring 2.6 cm within the upper pole of the right kidney favors a cyst. The liver, spleen, adrenal glands and pancreas are unremarkable. The appendix is not visualiz ed. There is no evidence for bowel obstruction. There is no ascites. There is no lymphadenopathy. Pos toperative findings within the spine are noted. No acute fracture or suspicious lesion is identified within the visualized skeletal structures. IMPRESSION: 1. Decreased sensitivity for detection of renal calculi given contrast within the collecting systems. However, no calculi identified. No hydronephrosis or hydroureter. 2. No acute process within the abdomen or pelvis on unenhanced exam. ACT 112: Negative or not required by law. Electronically signed by: Braxton Chavarria M.D. 03/05/2020 6:47 AM
--- NOTE | 2020-03-05 07:36 | XRay Report ---
XR chest 1V portable CLINICAL HISTORY: SEPSIS COMPARISON STUDY: Chest radiograph April 05, 2016. FINDINGS: Anterior cervical spine fusion is incidentally noted. There is no pneumothorax or pleural e ffusion. Linear left lower lung opacity reflects atelectasis. Cardiomediastinal silhouette is stable. There is no evidence for pulmonary edema or pneumonia. There is slight interstitial prominence. IMPRESSION: 1. Pulmonary vascular congestion without overt edema. 2. No consolidation to suggest pneumonia. ACT 112: Negative or not required by law. Electronically signed by: Braxton Chavarria M.D. 03/05/2020 7:34 AM
--- NOTE | 2020-03-05 07:39 | CT Scan Report ---
CT ANGIOGRAM OF THE CHEST CLINICAL HISTORY: Atypical chest pain. Dyspnea. COMPARISON STUDY: Chest x-ray dated 03/04/2020. TECHNIQUE: Following the IV administration of 119 cc of Optiray 320, CT angiogram of the chest was pe rformed from the upper abdomen to the thoracic inlet utilizing the pulmonary embolus protocol. Images are reviewed in the axial, sagittal, and coronal planes. 3-D MIPS images are created and assessed. I V contrast was administered without complication. A dose lowering technique was utilized adhering to the principles of ALARA. The examination is modestly degraded by motion artifact. There is suboptima l contrast opacification of the pulmonary arteries. CT DOSE: 535.41 mGy.cm FINDINGS: Thyroid: Imaged portions of the thyroid gland are normal in size and attenuation. Thoracic aorta: The thoracic aorta is normal in caliber and demonstrates standard 3-vessel arch anato my. No dissection is seen. Pulmonary vasculature: The pulmonary trunk is normal in caliber. There are no filling defects identif ied in main or lobar pulmonary branches to suggest pulmonary embolus. Evaluation of the segmental and subsegmental branches is significantly degraded by lack of contrast opacification and motion artifac t. Heart: The heart is enlarged and without pericardial effusion. There are coronary artery calcificatio ns. Lungs and pleural spaces: Evaluation of the lung parenchyma is degraded by motion artifact. There is no airspace consolidation or pleural effusion. Foci of scarring/atelectasis are present throughout deshawn th lungs. The trachea and central airways are clear. A 3 mm right upper lobe pulmonary nodule is seen on image #167. Mediastinum: There is no mediastinal lymphadenopathy. Sarah: Clear. Axillae: There is no axillary lymphadenopathy. Upper abdomen: There is a small hiatal hernia. Partially visualized upper abdominal viscera is otherw ise within normal limits. Skeletal structures: The skeletal structures are osteopenic. Fusion hardware is seen in the lower cer vical spine. No lytic or blastic bony lesions are seen. IMPRESSION: 1. There is no evidence of central pulmonary embolus in the main or lobar pulmonary arteries. The seg mental and subsegmental branches are not well evaluated. 2. Cardiomegaly. 3. There is no airspace consolidation or pleural effusion. ACT 112: Negative or not required by law. Electronically signed by: Oren Pritchard M.D. 03/05/2020 7:38 AM
[2020-03-05] MEDS ORDERED: OXYBUTYNIN CHLORIDE XL 5 MG TABCR PO SCH (09:00)
[2020-03-05] MEDS: ENOXAPARIN INJ 40 MG/0.4 ML SYR SQ SCH ×2 (09:02→21:14)
[2020-03-05] MEDS: DULOXETINE HCL 30 MG CAP PO SCH (09:03)
--- NOTE | 2020-03-05 09:11 | Medical Student Progress Note ---
Date of Service March 05, 2020 Assessment & Plan (1) Acute UTI: In the ER the patient had a significant fever, to a ~high of 101.3. CT of abdomen pelvis does not suggest pyelonephritis, but the fever and fatigue raise concerns of another source of infection. Follow urine culture and sensitivities. Continue ceftriaxone 2 g IV daily. Hold oxybutynin chloride tomorrow. Patient did receive 2 L normal saline while in the ED. NSS + KCl 20 mEq at 100 mils per hour. (2) Chest pain: The patient's exam suggests that her current chest pain is musculoskeletal in origin, but her past episodes of jaw pain radiating downward raise cardiac concerns. Monitor with telemetry while in the hospital, as well as having an echocardiogram of the heart performed. Chest pain type: unspecified Qualified Code(s): R07.9 - Chest pain, unspecified (3) Chronic back pain: Continue duloxetine 90 mg p.o. daily and tramadol 50 mg p.o. every 6 hours as needed (4) Insomnia: Continue trazodone 100 mg p.o. at bedtime (5) Depression with anxiety: Continue duloxetine 90 mg p.o. daily Admission and Anticipated Discharge Date Admission Date: March 05, 2020 The patient's fever and continued pain warrant remaining in the hospital and continuing to monitor blood and urine cultures. Subjective The patient is a 59 year old woman with a history of kidney stones, urinary incontinence, hyperlipidemia and hypertension but no other cardiac history, and depression with anxiety, who presented to the ED last night with fever, shortness of breath, and chest pain. One day ago the patient began experiencing shortness of breath, chest pain, cough, fatigue, and fever, and went to the emergency room with concerns of COVID. She tested negative in the ER for COVID-19, and had no evidence of PE on X-ray. Her EKG was slightly tachycardic but otherwise normal, and her D-dimer and troponin were not elevated. Her urinalysis showed nitrates, bacteria, and some epithelial cells, and she began treatment with ceftriaxone in the ED. She had a CT of the abdomen, but it did not show any evidence of pancreatitis, nephritis or kidney stones. Patient remained in the hospital per her own request, as she is very anxious about her symptoms. This morning she is fatigued but feeling better overall. She reports her chest pain to be less severe but still present. What is bothering her the most this morning is a headache. Review of Systems Review of Systems: The patient denies palpitations, lower extremity swelling, sore throat, chills, sweats, nausea, vomiting, diarrhea , constipation, abdominal pain, pelvic pain, blood in urine or stool, memory loss, loss of consciousness, rash, abnormal bruising or bleeding, imbalance, focal weakness, numbness or tingling in arms or legs, neck pain, or night sweats. The patient reports continued chest pain beginning under the left arm and radiating into the left breast. She says the pain is worse when she moves and when sitting upright, but that it is tolerable now. She reports a history of chest pain, but says that her past episodes were different because they began in her jaw and radiated down to her chest, and because they went away after she ate something, while this pain has been constant for the past two days. Patient states that she has always assumed that her chest pain was due to acid reflux because it went away when she ate. The patient reports new urinary incontinence over the past few weeks for which she saw her PCP and was prescribed oxybutynin chloride, but no urine culture was performed at that time. The review of systems is otherwise negative other than for that already noted above. Physical Exam Physical Exam: The patient is awake, alert and oriented 3, looks extremely fatigued, pleasant and cooperative but had minimal movement during exam due to pain. HEENT--PERRL, EOMI, mucous membranes and oropharynx dry. Neck--supple. No JVD. No bruits. Thyroid normal, trachea midline, no adenopathy. Heart--normal S1 and S2. No murmurs, rubs or gallops. Lungs--clear bilaterally, no respiratory distress, no accessory muscle use. Patient had a dry cough. Musculoskeletal--patient reported pain when she lifted her left arm above her head. On exam, she had give-away weakness and pain on the left side when shrugging her shoulders, when adducting and abducting her arms, and particularly during external and internal rotation. Empty can test of the supraspinatus tendon was negative. Abdomen--normal bowel sounds and soft. Nontender. Nondistended. Extremities--no cyanosis or clubbing. No edema. Dermatologic--normal skin turgor, normal color, no abnormal lymph nodes, no rash. Neurologic--cranial nerves II through XII grossly intact. Rheumatologic--limited exam due to pain Psychiatric--normal affect. Results & Data ([facility]) Vital Signs (Past 12 Hours) Vital Signs Temp Pulse Pulse Resp BP BP Pulse Ox 03/05/20 07:22 81 03/05/20 07:10 36.6 C 78 18 160/99 H 94 03/05/20 05:10 18 03/05/20 04:09 83 03/05/20 04:00 18 95 03/05/20 03:50 36.4 C L 82 18 146/77 H 95 03/05/20 03:23 80 18 144/82 H 94 03/05/20 02:51 86 16 145/97 H 91 03/05/20 02:40 80 14 92 03/05/20 02:30 80 16 145/97 H 90 03/05/20 02:20 80 15 92 03/05/20 02:10 90 12 91 03/05/20 02:02 37.2 C 03/05/20 02:01 93 H 18 147/99 H 95 03/05/20 02:00 84 15 94 03/05/20 01:59 90 20 155/124 H 93 03/05/20 01:50 89 22 93 03/05/20 01:40 91 H 10 L 92 03/05/20 01:31 89 11 L 92 03/05/20 01:30 89 17 155/124 H 92 03/05/20 01:20 94 H 10 L 93 03/05/20 01:10 96 H 13 94 03/05/20 01:01 97 H 12 92 03/05/20 01:00 95 H 10 L 132/100 93 03/05/20 00:50 96 H 13 93 03/05/20 00:40 94 H 16 93 03/05/20 00:31 100 H 13 143/100 H 91 03/05/20 00:30 97 H 14 94 03/05/20 00:20 103 H 13 94 03/05/20 00:10 97 H 13 93 03/05/20 00:02 38.0 C H 03/05/20 00:01 93 H 14 94 03/05/20 00:00 97 H 12 135/93 93 03/04/20 23:53 107 H 23 94 03/04/20 23:52 128/90 03/04/20 23:31 106 H 13 98 03/04/20 23:30 109 H 18 136/106 H 97 03/04/20 23:24 38.5 C H 101 H 22 137/98 96 03/04/20 23:20 100 H 15 96 03/04/20 23:10 103 H 14 96 03/04/20 23:01 100 H 14 97 03/04/20 23:00 98 H 12 137/98 96 03/04/20 22:50 101 H 13 96 03/04/20 22:40 96 H 18 97 03/04/20 22:34 97 H 16 153/99 H 96 03/04/20 22:32 97 H 13 153/99 H 97 03/04/20 22:31 96 03/04/20 22:10 103 H 18 97 03/04/20 22:01 99 H 22 97 03/04/20 22:00 105 H 17 162/103 H 97 03/04/20 21:50 113 H 20 98 03/04/20 21:40 114 H 15 97 03/04/20 21:31 113 H 16 96 03/04/20 21:30 110 H 14 149/102 H 96 03/04/20 21:20 116 H 14 97 03/04/20 21:10 114 H 17 97 03/04/20 21:01 116 H 18 96
[2020-03-05 12:56] LABS: Adenovirus PCR Not Detected (NotDetected); Bordetella parapertussis PCR Not Detected (NotDetected); Bordetella pertussis PCR Not Detected (NotDetected); Chlamydia pneumoniae PCR Not Detected (NotDetected); Coronavirus 229E PCR Not Detected (NotDetected); Coronavirus CoV-2 (COVID19)PCR Not Detected (NotDetected); Coronavirus HKU1 PCR Not Detected (NotDetected); Coronavirus NL63 PCR Not Detected (NotDetected); Coronavirus OC43PCR Not Detected (NotDetected); Human Metapneumovirus PCR Not Detected (NotDetected); Influenza A PCR Not Detected (NotDetected); Influenza B PCR Not Detected (NotDetected); Mycoplasma pneumoniae PCR Not Detected (NotDetected); Parainfluenza Virus 1 PCR Not Detected (NotDetected); Parainfluenza Virus 2 PCR Not Detected (NotDetected); Parainfluenza Virus 3 PCR Not Detected (NotDetected); Parainfluenza Virus 4 PCR Not Detected (NotDetected); Respiratory Syncytial VirusPCR Not Detected (NotDetected); Rhinovirus/Enterovirus PCR Not Detected (NotDetected)
--- NOTE | 2020-03-05 15:30 | History & Physical Bridge Note ---
Date of Service March 05, 2020 History & Physical Bridge Note I have examined the patient, reviewed the History & Physical and in the interval since the performance of the History & Physical I have noted the following changes of clinical significance: Pt reports she had a headache earlier but it is now gone with tylenol and rizatriptan. Reports has aches all over, feels rundown. Urinary urgency has improved thought today compared to the last 2 weeks. She was started on Ditropan 2 weeks ago for urinary incontinence and urgency but did not have a UA at htat time. Has been having sweats at night the last 2 weeks. Reports her left sided chest pain and left axilla pain is now much improved after receiving toradol and tylenol. Troponins have been negative. ECHO pending. Vitals reviewed NAD, AAOx3 MMM, OP clear RRR no mgr CTAB no wcr, left axilla no SUSAN, no tenderness, no ttp over left pectoralis muscle, some pain with internal rotation of left upper ext. Abd +BS soft NT ND Ext no calf pain or tenderness, no edema 2+ DP pulses SKin: left lower back with small patch of browninsh macular scarred appearing lesions, each 3-5mm in size 59 yo female here with fever, left sided CP, and UTI Await cultures, dc IVFs as is taking po, continue ceftriazone, and continue tylenol as needed. Checked [employer] panel and is negative
--- NOTE | 2020-03-05 16:53 | Electrocardiogram Report ---
Test Reason : Blood Pressure : / mmHG Vent. Rate : 112 BPM Atrial Rate : 112 BPM P-R Int : 136 ms QRS Dur : 080 ms QT Int : 336 ms P-R-T Axes : 036 -02 013 degrees QTc Int : 458 ms Sinus tachycardia Otherwise normal ECG When compared with ECG of 14-FEB-2019 15:11, No significant change was found Confirmed by Alexis Saldaña ([id number]) on 03/05/2020 4:53:00 PM Referred By: REFERRED SELF Confirmed By:Cheikh Saldaña
[2020-03-05] MEDS: TRAZODONE HCL 100 MG TAB PO SCH (21:13)
[2020-03-05] MEDS: cefTRIAXone SODIUM 2,000 MG in DEXTROSE 5% 50 ML IV SCH (23:10)
[2020-03-06 08:55] LABS: Basophils # (auto) 0.02 K/uL (0-0.2); Basophils % (auto) 0.3 %; Eosinophils # (auto) 0.14 K/uL (0-0.5); Eosinophils % (auto) 1.8 %; Hematocrit (blood only) 37.9 % (37-47); Hemoglobin 11.6 g/dL (12.0-16.0); Immature Granulocytes # (auto) 0.02 K/uL (0.00-0.02); Immature Granulocytes % (auto) 0.3 %; Lymphocytes # (auto) 1.66 K/uL (1.2-3.4); Lymphocytes % (auto) 21.6 %; Mean Corpuscular Hemoglobin 24.1 pg (25-34); Mean Corpuscular Hgb Conc 30.6 g/dL (32-36); Mean Corpuscular Volume 78.8 fL (80-100); Mean Platelet Volume 9.2 fL (7.4-10.4); Monocytes # (auto) 0.95 K/uL (0.11-0.59); Monocytes % (auto) 12.4 %; Neutrophils # (auto) 4.88 K/uL (1.4-6.5); Neutrophils % (auto) 63.6 %; Platelet Count 347 K/uL (130-400); RDW Coefficient of Variation 15.3 % (11.5-14.5); RDW Standard Deviation 44.4 fL (36.4-46.3); Red Blood Count 4.81 M/uL (4.2-5.4); White Blood Count 7.67 K/uL (4.8-10.8)
[2020-03-06 09:30] LABS: Alanine Aminotransferase 22 U/L (12-78); Aspartate Aminotransferase 11 U/L (15-37); BUN Creatinine Ratio 27.1 (10-20); Blood Urea Nitrogen 23 mg/dl (7-18); Calcium 8.6 mg/dl (8.5-10.1); Carbon Dioxide 28 mmol/L (21-32); Chloride 106 mmol/L (98-107); Creatinine Clr Calc Pharmacy 96.5 ml/min; Est GFR (African American) 86.9; Glucose 116 mg/dl (70-99); Iron 27 mcg/dl (35-150); Potassium 4.1 mmol/L (3.5-5.1); Sodium 139 mmol/L (136-145)
[2020-03-06 09:33] LABS: Alkaline Phosphatase 143 U/L (45-117); Bilirubin Direct < 0.1 mg/dl (0-0.2); Bilirubin,Total 0.2 mg/dl (0.2-1); Ferritin 68.8 ng/ml (8-388); Total Iron Binding Capacity 265 mcg/dl (250-450); Total Protein 7.6 gm/dl (6.4-8.2); Transferrin 217 mg/dl (200-360); Transferrin Percent Saturation 9 % (15-50)
[2020-03-06] MEDS: DULOXETINE HCL 30 MG CAP PO SCH (10:02)
[2020-03-06] MEDS: ENOXAPARIN INJ 40 MG/0.4 ML SYR SQ SCH ×2 (10:03→19:59)
[2020-03-06 10:06] LABS: Lyme Ab IgG w/WB Rflx Negative (Negative)
[2020-03-06 10:12] LABS: Lyme Ab IgM w/WB Rflx Equivocal (Negative)
--- NOTE | 2020-03-06 14:37 | Hospitalist Progress Note ---
Date of Service March 06, 2020 Assessment & Plan (1) Fever: Patient presented with sweats for 2 weeks and urinary frequency and incontinence, body aches all over and malaise. She also was having intermittent headache. No back pain or abdominal pain. Was febrile upon arrival, no leukocytosis and CBC otherwise normal except microcytosis, LFTs within normal limits except mildly elevated alkaline phosphatase which is chronic. Procalcitonin was negative. COVID-19 negative, viral respiratory panel negative including influenza. Chest x-ray with pulmonary vascular congestion without overt edema and no consolidation. CT angiogram of chest with no PE, cardiomegaly, no airspace consolidation or pleural effusion. CT abdomen/pelvis without contrast is negative UA with nitrite and 4+ bacteria, but no WBCs and 10-20 epithelial cells, urine culture with gram-negative rods-most likely UTI as the source Blood cultures-no growth to date-we will follow Did have a tick bite 2 months prior-checked Lyme titer which was equivocal for IgM and Western blot is pending Anaplasmosis smear performed and is negative, but Anaplasma DNA PCR is pending Was started on Rocephin upon admission for UTI and still spiking fevers as of last night -Start doxycycline empirically in case of anaplasmosis and continue Rocephin -Follow final urine culture result -Consider repeating COVID-19 test tomorrow if fevers persist despite treatment (2) Acute UTI: Patient has been significantly febrile in the emergency department, to a ~max temperature of 101.3. CT of abdomen pelvis does not suggest pyelonephritis, however, there were concerns for a subclinical process. She did develop some right lower quadrant/suprapubic pain in the night of 03/05 in the morning of 03/06 which is now mostly improved She does have a history of suspected past kidney stones in 2016 No kidney stones noted on CT scan here on 03/05 but there was IV contrast present making it difficult exam to look for stones. Follow urine culture and sensitivities. Continue ceftriaxone 2 g IV daily. Consider repeat CT scan if pain persists (3) Chest pain: Presented with atypical sharp left-sided pectoral pain into the left axilla that was worse with movement. No axillary lymphadenopathy palpated on examination. Troponin negative x3 Echocardiogram performed but still not read yet ECG with sinus tachycardia, no ischemic changes Now completely resolved Not secondary to cardiac cause Most likely musculoskeletal in nature (4) Chronic back pain: Stable Continue duloxetine 90 mg p.o. daily and tramadol 50 mg p.o. every 6 hours as needed (5) Insomnia: Stable -Continue trazodone 100 mg p.o. at bedtime (6) Depression with anxiety: Stable -Continue duloxetine 90 mg p.o. daily (7) Anemia: Microcytic mild anemia, chronic Patient reports she has been told she was iron deficient in the past No vaginal bleeding, no hematuria, no hematochezia or melena. She has had multiple colonoscopies in the recent past for history of polyps-most recent records were 2015 without significant abnormality. EGD was also in 2016 which was without significant abnormality. Iron studies here show transferrin saturation very low at 9% -Recommend starting oral iron supplementation upon discharge and following up with GI for possible EGD/colonoscopy as an outpatient (8) Elevated alkaline phosphatase level: Chronically mildly elevated, all other LFTs are normal No mention of hepatic steatosis on CT of the abdomen/pelvis here Could be from liver or bone? Follow LFTs and check GGT in the morning (9) DVT prophylaxis: Lovenox 40 mg SQ twice daily Disposition-continued stay for febrile illness and follow-up of blood cultures Admission and Anticipated Discharge Date Admission Date: March 05, 2020 Subjective Had some lower abd pain somewhat on right side last night that is now improved. Has not had a BM in over 2 days and normally is very regular on a daily basis. No further headache, no fevers, no chest pain or SOB. Has some occasional cough. Urinary frequency is completely resolved. No joint pains. She reports she had a tick bit a couple months ago. her left sided chest pain is now completely resolved. As for her Anemia, she reports she has always been told she had low iron levels. She has had several colonoscopies for a h/o polyps but never an EGD that she knows of. No obvious blood in stool, no vaginal bleeding since menopause. Review of Systems Review of Systems: All systems reviewed & are unremarkable except as noted in HPI & below Physical Exam Constitutional: WD/WN, vitals as above Eyes: PERRL, conjunctivae normal, anicteric sclerae ENMT: external ear and nose normal, oropharynx normal Neck: trachea midline, no thyromegaly Respiratory: normal respiratory effort, lungs clear to auscultation Cardiovascular: RRR, no murmur, no edema Chest (Breasts): Chest: normal inspection of chest Gastrointestinal (Abdomen): Inspection/Auscultation: normal bowel sounds; abdomen not distended Percussion/Palpation: + abdomen tender (mild in suprapubic and just ot right of midline without guarding) and abdomen soft; no guarding, abdomen not rigid and no hepatosplenomegaly Musculoskeletal: Extremities: extremities normal to inspection; no cyanosis and no clubbing Skin: + rash (left lower back with a patch of macular purplish 4-5mm lesions) Neurologic: moves all extremities and awake; no focal motor deficits Psychiatric: A+Ox3, euthymic affect Lymphatic: no lymphedema Results & Data Results & Data ([facility]) Vital Signs (Past 12 Hours) Vital Signs Temp Pulse Resp BP Pulse Ox 03/06/20 11:37 36.9 C 92 H 18 140/87 90 03/06/20 07:32 36.9 C 77 18 151/92 H 94 03/06/20 04:00 36.9 C 90 18 123/75 92 Laboratory Results 03/06/20 03/06/20 03/06/20 Range/Units 08:33 08:33 08:33 WBC (4.8-10.8) K/uL RBC (4.2-5.4) M/uL Hgb (12.0-16.0) g/dL Hct (37-47) % MCV (80-100) fL MCH (25-34) pg MCHC (32-36) g/dL RDW Std Deviation (36.4-46.3) fL RDW Coeff of Wander (11.5-14.5) % Plt Count (130-400) K/uL MPV (7.4-10.4) fL Immature Gran % (Auto) % Neut % (Auto) % Lymph % (Auto) % [place] % (Auto) % Eos % (Auto) % Baso % (Auto) % Neut # (Auto) (1.4-6.5) K/uL Lymph # (Auto) (1.2-3.4) K/uL [place] # (Auto) (0.11-0.59) K/uL Eos # (Auto) (0-0.5) K/uL Baso # (Auto) (0-0.2) K/uL Immature Gran # (Auto) (0.00-0.02) K/uL Sodium (136-145) mmol/L Potassium (3.5-5.1) mmol/L Chloride (98-107) mmol/L Carbon Dioxide (21-32) mmol/L Anion Gap (3-11) BUN (7-18) mg/dl Creatinine (0.6-1.2) mg/dl Est Cr Clr Drug Dosing ml/min Est GFR ( Amer) Est GFR (Non-Af Amer) BUN/Creatinine Ratio (10-20) Glucose (70-99) mg/dl Calcium (8.5-10.1) mg/dl Iron (35-150) mcg/dl TIBC (250-450) mcg/dl Transferrin (200-360) mg/dl Transferrin % Sat (15-50) % Ferritin (8-388) ng/ml Total Bilirubin (0.2-1) mg/dl Direct Bilirubin (0-0.2) mg/dl AST (15-37) U/L ALT (12-78) U/L Alkaline Phosphatase (45-117) U/L Total Protein (6.4-8.2) gm/dl Albumin (3.4-5.0) gm/dl Anaplasma Smear A. phagocytophilum DNA Pending Lyme Disease IgG Ab Negative (Negative) Lyme IgG (Western Blot) Pending Lyme IgG 18 kDa Band Pending Lyme IgG 23 kDa Band Pending Lyme IgG 28 kDa Band Pending Lyme IgG 30 kDa Band Pending Lyme IgG 39 kDa Band Pending Lyme IgG 41 kDa Band Pending Lyme IgG 45 kDa Band Pending Lyme IgG 58 kDa Band Pending Lyme IgG 66 kDa Band Pending Lyme IgG 93 kDa Band Pending Lyme IgM Ab (WB) Pending Lyme Disease IgM Ab Equivocal A (Negative) Lyme IgM 23 kDa Band Pending Lyme IgM 39 kDa Band Pending Lyme IgM 41 kDa Band Pending 03/06/20 03/06/20 Range/Units 08:33 08:33 WBC 7.67 (4.8-10.8) K/uL RBC 4.81 (4.2-5.4) M/uL Hgb 11.6 L (12.0-16.0) g/dL Hct 37.9 (37-47) % MCV 78.8 L (80-100) fL MCH 24.1 L (25-34) pg MCHC 30.6 L (32-36) g/dL RDW Std Deviation 44.4 (36.4-46.3) fL RDW Coeff of Wander 15.3 H (11.5-14.5) % Plt Count 347 (130-400) K/uL MPV 9.2 (7.4-10.4) fL Immature Gran % (Auto) 0.3 % Neut % (Auto) 63.6 % Lymph % (Auto) 21.6 % [place] % (Auto) 12.4 % Eos % (Auto) 1.8 % Baso % (Auto) 0.3 % Neut # (Auto) 4.88 (1.4-6.5) K/uL Lymph # (Auto) 1.66 (1.2-3.4) K/uL [place] # (Auto) 0.95 H (0.11-0.59) K/uL Eos # (Auto) 0.14 (0-0.5) K/uL Baso # (Auto) 0.02 (0-0.2) K/uL Immature Gran # (Auto) 0.02 (0.00-0.02) K/uL Sodium 139 (136-145) mmol/L Potassium 4.1 (3.5-5.1) mmol/L Chloride 106 (98-107) mmol/L Carbon Dioxide 28 (21-32) mmol/L Anion Gap 5.0 (3-11) BUN 23 H (7-18) mg/dl Creatinine 0.85 (0.6-1.2) mg/dl Est Cr Clr Drug Dosing 96.5 ml/min Est GFR ( Amer) 86.9 Est GFR (Non-Af Amer) 75.0 BUN/Creatinine Ratio 27.1 H (10-20) Glucose 116 H (70-99) mg/dl Calcium 8.6 (8.5-10.1) mg/dl Iron 27 L (35-150) mcg/dl TIBC 265 (250-450) mcg/dl Transferrin 217 (200-360) mg/dl Transferrin % Sat 9 L (15-50) % Ferritin 68.8 (8-388) ng/ml Total Bilirubin 0.2 (0.2-1) mg/dl Direct Bilirubin < 0.1 (0-0.2) mg/dl AST 11 L (15-37) U/L ALT 22 (12-78) U/L Alkaline Phosphatase 143 H (45-117) U/L Total Protein 7.6 (6.4-8.2) gm/dl Albumin 3.0 L (3.4-5.0) gm/dl Anaplasma Smear Pending A. phagocytophilum DNA Lyme Disease IgG Ab (Negative) Lyme IgG (Western Blot) Lyme IgG 18 kDa Band Lyme IgG 23 kDa Band Lyme IgG 28 kDa Band Lyme IgG 30 kDa Band Lyme IgG 39 kDa Band Lyme IgG 41 kDa Band Lyme IgG 45 kDa Band Lyme IgG 58 kDa Band Lyme IgG 66 kDa Band Lyme IgG 93 kDa Band Lyme IgM Ab (WB) Lyme Disease IgM Ab (Negative) Lyme IgM 23 kDa Band Lyme IgM 39 kDa Band Lyme IgM 41 kDa Band Ur cx with GNR PG Care Time/CCT Total # of Minutes Spent Total Time Spent with Patient: Total time spent is greater than 50% in coordination of care (as documented) at patient's floor/unit and/or counseling patient: Coding Level of Care Code 64790 Subseq Hosp Care Lvl 3 Diagnoses Fever R50.9 Fever type: unspecified Acute UTI N39.0 Chest pain R07.9 Chest pain type: unspecified Chronic back pain M54.9; G89.29 Insomnia G47.00 Depression with anxiety F41.8 Anemia D64.9 Elevated alkaline phosphatase level R74.8 DVT prophylaxis Z29.9 (1) Fever Fever type: unspecified Qualified Code(s): R50.9 - Fever, unspecified (2) Chest pain Chest pain type: unspecified Qualified Code(s): R07.9 - Chest pain, unspecified
--- NOTE | 2020-03-06 15:01 | Medical Student Progress Note ---
Date of Service March 06, 2020 Assessment & Plan (1) Acute UTI: Continue to treat with ceftriaxone 2g IV Follow urine culture and sensitivities (2) Fever: Continue treating the UTI Continue looking for a possible infection Anaplasmosis results are not yet back and Lyme results are equivocal, so begin empiric treatment for Lyme and Anaplasmosis with doxycycline in addition to ceftriaxone. Fever type: unspecified Qualified Code(s): R50.9 - Fever, unspecified (3) Urge incontinence: Currently improving; continue to hold oxybutynin chloride. (4) Anemia: Anemia could be due to a bleed or to dietary factors. The patient is up to date on her colonoscopies, but an endoscopy could be warranted to look for upper GI bleeding. Since this is a chronic anemia, it is more likely that it is dietary and not a bleed. Iron supplements may help. (5) Chest pain: Chest pain is most likely musculoskeletal because of the quality of the pain and the way that moving the arm (but not exertion) exacerbates the pain. It is gradually improving with rest. To rule out cardiac causes the patient is being monitored by telemetry and has had an echocardiogram of the heart done, and the results are pending. Chest pain type: unspecified Qualified Code(s): R07.9 - Chest pain, unspecified (6) Abdominal pain: GI: this could be constipation, since the patient has not moved her bowels in two days. The patient was encouraged to move around, and was offered miralax to help her move her bowels. The CT on admission showed no evidence of appendicitis or other abdominal inflammation. : this pain could also be from bladder spasms as the UTI is being treated. Monitor and provide pain relief in the form of tylenol or tramadol as needed. Admission and Anticipated Discharge Date Admission Date: March 05, 2020 Subjective The patient is a 59 year old woman who was admitted two days ago with a diagnosis of a UTI. Two days ago she presented to the ED with fever (101.3), shortness of breath, chest pain and fatigue. She tested negative in the ER for COVID-19, and there was no evidence of PE on X-ray. Her EKG was slightly tachycardic but otherwise normal, and her D-dimer and troponin were not elevated. Her urinalysis showed nitrates, bacteria, and epithelial cells, and she began treatment with ceftriaxone in the ED. She had a CT of the abdomen but it did not show any evidence of pancreatitis, appendicitis, nephritis, or kidney stones. The patient was admitted due to her fever and her anxiety over her symptoms. Over the past two days in the hospital she has been feeling somewhat better, and her chest pain has receded almost completely. A respiratory virus panel was negative and a Lyme antibody test was equivocal. This morning she is still feeling achy and fatigued. Her chest pain is no longer bothering her except when she raises her left arm. What is bothering her the most this morning is a new onset abdominal pain. She reported that a lower abdominal cramping "like menstrual cramps" began last night and continues to bother her this morning, although it is less severe than it was overnight. Overnight she rated it a 6/10 and was given tramadol. This morning her abdomina l pain is a 3/10. Review of Systems Review of Systems: The patient denies palpitations, shortness of breath, lightheadedness, lower extremity swelling, sore throat, chills, sweats, nausea, vomiting, diarrhea , constipation, blood in urine or stool, memory loss, loss of consciousness, rash, abnormal bruising or bleeding, imbalance, focal weakness, numbness or tingling in arms or legs, neck pain, or night sweats. The patient's chest pain is significantly improved and she only notices it when she moves her left arm above her head. The patient is eating well. She has not had a bowel movement since she was admitted to the hospital, which she says is unusual for her. Her urinary incontinence is improved over the past two days, and she is urinating less frequently. She is several years post menopausal and has had no bleeding or cramping since her periods ended. The review of systems is otherwise negative other than for that already noted above. Physical Exam Physical Exam: The patient is awake, alert and oriented 3, looks extremely fatigued, pleasant and cooperative. HEENT--PERRL, EOMI, mucous membranes and oropharynx dry. Neck--supple. No JVD. No bruits. Thyroid normal, trachea midline, no adenopathy. Heart--normal S1 and S2. No murmurs, rubs or gallops. Lungs--clear bilaterally, no respiratory distress, no accessory muscle use. Patient had a dry cough. Musculoskeletal--patient reported pain when she lifted her left arm above her head but otherwise is much improved. Abdomen--normal bowel sounds and soft. Nondistended. No erythema. Patient is tender to palpation in the lower abdomen centrally and to the right. Extremities--no cyanosis or clubbing. No edema. Dermatologic--normal skin turgor, normal color, no abnormal lymph nodes, no rash. Neurologic--cranial nerves II through XII grossly intact. Psychiatric--normal affect. Results & Data ([facility]) Vital Signs (Past 12 Hours) Vital Signs Temp Pulse Resp BP Pulse Ox 03/06/20 11:37 36.9 C 92 H 18 140/87 90 03/06/20 07:32 36.9 C 77 18 151/92 H 94 03/06/20 04:00 36.9 C 90 18 123/75 92
[2020-03-06] MEDS: DOXYCYCLINE HYCLATE 100 MG in DEXTROSE 5% 100 ML IV SCH (15:45)
[2020-03-06] MEDS: TRAZODONE HCL 100 MG TAB PO SCH (21:00)
[2020-03-06] MEDS: cefTRIAXone SODIUM 2,000 MG in DEXTROSE 5% 50 ML IV SCH (21:00)
[2020-03-07] MEDS: DOXYCYCLINE HYCLATE 100 MG in DEXTROSE 5% 100 ML IV SCH (02:40)
[2020-03-07 05:54] LABS: Basophils # (auto) 0.03 K/uL (0-0.2); Basophils % (auto) 0.4 %; Eosinophils % (auto) 2.7 %; Hematocrit (blood only) 38.4 % (37-47); Hemoglobin 11.5 g/dL (12.0-16.0); Immature Granulocytes # (auto) 0.03 K/uL (0.00-0.02); Immature Granulocytes % (auto) 0.4 %; Lymphocytes # (auto) 1.43 K/uL (1.2-3.4); Mean Corpuscular Hemoglobin 23.7 pg (25-34); Mean Corpuscular Hgb Conc 29.9 g/dL (32-36); Mean Corpuscular Volume 79.2 fL (80-100); Mean Platelet Volume 9.6 fL (7.4-10.4); Monocytes % (auto) 11.9 %; Neutrophils # (auto) 4.95 K/uL (1.4-6.5); Neutrophils % (auto) 65.6 %; Platelet Count 416 K/uL (130-400); RDW Coefficient of Variation 15.4 % (11.5-14.5); RDW Standard Deviation 44.5 fL (36.4-46.3); Red Blood Count 4.85 M/uL (4.2-5.4); White Blood Count 7.54 K/uL (4.8-10.8)
[2020-03-07 06:28] LABS: Alanine Aminotransferase 21 U/L (12-78); Albumin Level 2.8 gm/dl (3.4-5.0); Aspartate Aminotransferase 13 U/L (15-37); BUN Creatinine Ratio 26.5 (10-20); Bilirubin Direct < 0.1 mg/dl (0-0.2); Blood Urea Nitrogen 22 mg/dl (7-18); C Reactive Protein 2.95 mg/dl (0-0.29); Calcium 8.2 mg/dl (8.5-10.1); Carbon Dioxide 28 mmol/L (21-32); Chloride 108 mmol/L (98-107); Creatinine Clr Calc Pharmacy 96.5 ml/min; Est GFR (African American) 86.9; Glucose 116 mg/dl (70-99); Potassium 3.7 mmol/L (3.5-5.1); Sodium 141 mmol/L (136-145)
[2020-03-07 06:34] LABS: Alkaline Phosphatase 141 U/L (45-117); Bilirubin,Total 0.2 mg/dl (0.2-1); Total Protein 7.2 gm/dl (6.4-8.2)
[2020-03-07] MEDS: ENOXAPARIN INJ 40 MG/0.4 ML SYR SQ SCH (08:50)
[2020-03-07] MEDS: DULOXETINE HCL 30 MG CAP PO SCH (08:55)
[2020-03-07] MEDS ORDERED: POLYETHYLENE (MIRALAX) 17 GM PACK PO SCH (11:30)
--- NOTE | 2020-03-07 11:45 | XCELERA ---
[id number]
--- NOTE | 2020-03-07 11:59 | Discharge Summary ---
Date of Service March 07, 2020 Admission HPI Per Admitting Provider The patient is a 59-year-old female with a past medical history including urge incontinence, migraine, acid reflux, postoperative urinary retention, chronic back pain, epidural abscess, occlusion of PICC line, pseudoarthrosis after fusion or arthrodesis, left renal calculus, tubular adenoma of colon, sacral radiculopathy, insomnia, dyslipidemia, lumbar disc degeneration, depression with anxiety and anemia. Patient's main complaint at this time is severe fatigue, and that her body hurts all over. She denies any recent travels or sick exposures. She was negative for COVID-19 and influenza infections while in the ED tonight. Repeat temperature in the emergency department this evening was 101.3 F. The patient notes that she did see her outpatient office 1 week ago regarding urinary incontinence, and was started on oxybutynin chloride 5 mg extended release at that time. Principal Diagnosis UTI, suspected tickborne illness, musculoskeletal chest pain Discharge Exam Constitutional WD/WN, vitals as above Eyes + anicteric sclerae Neck trachea midline, no thyromegaly Respiratory normal respiratory effort, lungs clear to auscultation Cardiovascular RRR, no murmur, no edema Chest (Breasts) Chest: normal inspection of chest Gastrointestinal (Abdomen) normal bowel sounds, soft, nontender, no hepatosplenomegaly Musculoskeletal Extremities: extremities normal to inspection; no cyanosis and no clubbing Skin + rash (left lower back with a patch of macular purplish 4-5mm lesions) Neurologic moves all extremities and awake; no focal motor deficits Psychiatric A+Ox3, euthymic affect Lymphatic no lymphedema Discharge Data Allergies Allergy/AdvReac Type Severity Reaction Status Date / Time lorazepam AdvReac Intermediate DELIRIUM, Verified 01/13/20 09:24 CONFUSION zolpidem AdvReac Intermediate DELIRIUM, Verified 01/13/20 09:24 CONFUSION Consultations 03/05/20 00:50 ED Decision to Admit Stat 03/05/20 03:47 Consult Case Management - Discharge Planning Routine Ordered Studies 03/04/20 22:01 CT angio chest PE protocol Urgent 03/05/20 01:04 CT abd pelvis wo con Urgent Chest x-ray Echocardiogram Hospital Course (1) Fever: Patient presented with sweats for 2 weeks and urinary frequency and incontinence, body aches all over and malaise. She also was having intermittent headache. No back pain or abdominal pain. Was febrile upon arrival, no leukocytosis and CBC otherwise normal except microcytosis, LFTs within normal limits except mildly elevated alkaline phosphatase which is chronic. Procalcitonin was negative. COVID-19 negative, viral respiratory panel negative including influenza. Chest x-ray with pulmonary vascular congestion without overt edema and no consolidation. CT angiogram of chest with no PE, cardiomegaly, no airspace consolidation or pleural effusion. CT abdomen/pelvis without contrast is negative UA with nitrite and 4+ bacteria, but no WBCs and 10-20 epithelial cells, urine culture with E. coli-most likely UTI as the source Blood cultures-no growth to date-we will follow after discharge Did have a tick bite 2 months prior-checked Lyme titer which was equivocal for IgM and Western blot is pending Anaplasmosis smear performed and is negative, but Anaplasma DNA PCR is pending Was started on Rocephin upon admission for UTI and fevers have now resolved Was started on doxycycline empirically in case of Lyme disease and anaplasmosis and continue Rocephin -Will send out with cephalexin to finish out a 7-day course for her complicated UTI given systemic symptoms -Will discharge also with a 10-day course of doxycycline to cover in case of anaplasmosis while Anaplasma DNA PCR and Lyme disease Western blot are pending- these can be followed up by PCP. If positive for Lyme disease, would extend doxycycline course for total of 4 weeks (2) Acute UTI: Patient was febrile in the emergency department, to a ~max temperature of 101.3. CT of abdomen pelvis does not suggest pyelonephritis, however, there were concerns for a subclinical process. She did develop some right lower quadrant/suprapubic pain in the night of 03/05 in the morning of 03/06 which is now solved She does have a history of suspected past kidney stones in 2016 No kidney stones noted on CT scan here on 03/05 but there was IV contrast present making it difficult exam to look for stones. Urine culture with E. coli resistant to ampicillin and Unasyn Received ceftriaxone 2 g IV daily and will send out with cephalexin as above. Overall much improved No further urinary incontinence or urgency-discontinue oxybutynin (3) Chest pain: Presented with atypical sharp left-sided pectoral pain into the left axilla that was worse with movement. No axillary lymphadenopathy palpated on examination. Troponin negative x3 Echocardiogram normal ECG with sinus tachycardia, no ischemic changes Now completely resolved Not secondary to cardiac cause Most likely musculoskeletal in nature (4) Chronic back pain: Stable Continue duloxetine 90 mg p.o. daily and tramadol 50 mg p.o. every 6 hours as needed (5) Insomnia: Stable -Continue trazodone 100 mg p.o. at bedtime (6) Depression with anxiety: Stable -Continue duloxetine 90 mg p.o. daily (7) Anemia: Microcytic mild anemia, chronic Patient reports she has been told she was iron deficient in the past No vaginal bleeding, no hematuria, no hematochezia or melena. She has had multiple colonoscopies in the recent past for history of polyps-most recent records were 2016 without significant abnormality. EGD was also in 2016 which was without significant abnormality. Iron studies here show transferrin saturation very low at 9% -Recommend starting oral iron supplementation upon discharge and following up with GI for possible EGD/colonoscopy as an outpatient (8) Elevated alkaline phosphatase level: Chronically mildly elevated, all other LFTs are normal No mention of hepatic steatosis on CT of the abdomen/pelvis here Could be from liver or bone? Follow LFTs as an outpatient-GGT was checked and is pending at the time of discharge-this should be followed up on by the PCP after discharge (9) DVT prophylaxis: Lovenox 40 mg SQ twice daily Disposition-stable for discharge to home Total Time Total Time Spent Total Time Spent (In Minutes): 40 minutes Total Time Includes: Examination of the Patient, Discharge Planning and Medication Reconciliation Discharge Plan Discharge Items Patient Disposition: Home - Self-Care Reason For Visit: COMPLICATED UTI Discharge Diagnosis: Complicated UTI, suspected Lyme disease/Anaplasmosis, Musculoskeletal chest pain Condition on Discharge: Good Activity: As commented below Lifting: Gradually increase as tolerated Bathing: No limitations Exercise/Sports: Gradually increase as tolerated Weightbearing: Full weightbearing Non-emergency contact: Primary Care Provider Call non-emergency contact if: you have any medication questions, your symptoms worsen and your pain is not controlled Follow-up/Referrals: Sarita Chavarria MD [Primary Care Provider] - 03/16/20 2:00 pm (Please follow up within 1-2 weeks.) Diet: Regular Addtl Attending Provider Instructions: Please finish out the course of antibiotics for your UTI with Keflex 500mg twice a day. You will also be given 9 more days of doxycycline in case of Lyme disease or Anaplasmosis (both tick-borne illnesses) until the final results come back for those diseases. Your PCP can follow up on the final results of those tests for you. You were also found to have a chronic iron deficiency anemia. You should follow up with your Certified [employer] to have a repeat EGD/Colonoscopy to look for a source of blood loss. In the meantime, you should take iron tablets twice a day along with a stool softener. Please follow up with your PCP within 1-2 weeks. Pending Studies at Discharge: Yes (Lyme Western Blot, Anaplasma DNA PCR,GGT) Stand-Alone Forms: My [facility], Work/School Release (Inpt) Medications and DC Order Prescriptions: New cephalexin 500 mg capsule 500 mg PO BID 4 Days Qty: 8 RF: 0 doxycycline hyclate 100 mg tablet 100 mg PO BID Qty: 18 RF: 0 ferrous sulfate 325 mg (65 mg iron) tablet 325 mg PO BID Qty: 60 RF: 0 Continued tramadol 50 mg tablet 50 mg PO Q6 PRN (Reason: pain) Qty: 30 RF: 0 trazodone 100 mg tablet 100 mg PO HS Qty: 90 RF: 3 duloxetine 30 mg capsule,delayed release(DR/EC) 90 mg PO DAILY Qty: 90 RF: 5 rizatriptan 10 mg tablet,disintegrating 10 mg PO Q2H PRN (Reason: migraine headache) Qty: 9 RF: 5 ibuprofen 600 mg Tablet 200 - 600 mg PO DIRECTED PRN (Reason: Pain) RF: 0 Discontinued oxybutynin chloride 5 mg tablet extended release 24hr 5 mg PO DAILY Qty: 30 RF: 5 Discharge Orders: Discharge Order (Routine); Ordered 03/07/20 Ordered By: Carmen Oscar Admission Data Admit Date/Time: 03/06/20 20:15 Attending Provider: Carmen Oscar Admit Provider: Kirit Quiles Primary Care Provider: Sarita Chavarria Other Providers: Kirit Quiles Other Interventions: Discharge Summary Assessment (RN) Last Done: 03/07/20 12:01 Coding Level of Care Code D/C Day Management >30 mins Diagnoses Fever R50.9 Fever type: unspecified Acute UTI N39.0 Chest pain R07.9 Chest pain type: unspecified Chronic back pain M54.9; G89.29 Insomnia G47.00 Depression with anxiety F41.8 Anemia D64.9 Elevated alkaline phosphatase level R74.8 DVT prophylaxis Z29.9
[2020-03-09 01:23] LABS: 18KDIGG Band NON-REACTIVE; 23KDIGG Band NON-REACTIVE; 23KDIGM Band NON-REACTIVE; 28KDIGG Band NON-REACTIVE; 30KDIGG Band NON-REACTIVE; 39KDIGG Band REACTIVE; 39KDIGM Band NON-REACTIVE; 41KDIGG Band REACTIVE; 41KDIGM Band REACTIVE; 45KDIGG Band NON-REACTIVE; 58KDIGG Band NON-REACTIVE; 66KDIGG Band NON-REACTIVE; 93KDIGG Band REACTIVE; Lyme Antibodies, WB IgG NEGATIVE (NEGATIVE); Lyme Antibodies, WB IgM NEGATIVE (NEGATIVE)
== END 2020-03-07 12:55 | disposition home or self-care (01) ==
LOC: 2N 19:30 → ED 19:30 → SUATTDRO 03-05 01:22 → 2N 03-05 03:23

== ENCOUNTER 2025-03-22 22:41 | Observation (INO) ==
--- NOTE | 2025-03-22 23:03 | Emergency Department Note ---
Impression & Plan Acute urinary retention, Failure of outpatient treatment, UTI (urinary tract infection) ED Provider Note NAME: MOMO KRUEGER AGE: 64 SEX: F : 1960 ARRIVES VIA: Walk-In INFORMANT: [Patient] ED PROVIDER(S): [Oren Koch MD] CHIEF COMPLAINT: Urinary symptoms HISTORY OF PRESENT ILLNESS: Patient is a 64-year-old female who has had urinary symptoms for over a month. She is on her third antibiotic. She just started cefdinir today. The patient complains of pressure to urinate, frequency and urgency. She has had some blood in the urine and some bilateral lower back pain. No fever. She did begin with nausea and vomiting today. Because of the ongoing symptoms, because of the vomiting, she presents for evaluation. She denies a history of frequent UTI. Urine culture results from 03/07/2025 showed E. coli which was pansensitive. PMHx/PSHx/Social Hx: See Below PHYSICAL EXAM: GENERAL: Patient is in no acute distress. HEENT: No acute trauma, normocephalic atraumatic, mucous membranes moist, no nasal congestion. NECK: No stridor, no adenopathy, no meningismus, trachea is midline. LUNGS: Clear to auscultation bilaterally, no wheeze, no rhonchi, breath sounds equal. HEART: Without murmurs gallops or rubs, regular rate and rhythm. ABDOMEN: Soft, tender in the area of the bladder. No obvious distention. EXTREMITIES: No cyanosis, full range of motion of all the joints without pain or difficulty. NEUROLOGIC: Oriented x 3, no acute motor or sensory deficits, no focal weakness. SKIN: No jaundice, no diaphoresis. Back: No flank discomfort to percussion. DIFFERENTIAL DIAGNOSIS: Pyelonephritis, renal colic, ureteral obstruction, diverticulitis, failed outpatient management, urinary retention, among others. EMERGENCY DEPARTMENT PROCEDURES: Bladder scan showed over 500 cc, significant retention. MEDICAL DECISION MAKING: There is no leukocytosis. There was a very mild anemia with a hemoglobin of 11. This mild anemia has been seen in the past. There was a normal platelet count. No bandemia. No renal failure or significant electrolyte abnormality. No concerning liver enzyme elevation. No evidence for pancreatitis. Urinalysis shows findings of infection. Abdominal and pelvis CT does not show any urinary obstruction, there was no diverticulitis or acute surgical pathology. On exam, the patient had some discomfort with palpation over the bladder. She was not toxic or febrile. No flank pain with percussion. The patient received IV Toradol and IV Zofran. She was given IV saline, 1.5 L. A bladder scan was performed, the patient was retaining around 500 cc of urine. She could not urinate spontaneously. A Rivera catheter was placed. Given the failed outpatient management, given the urinary retention, given the vomiting and the inability to take her oral antibiotics, I do think a hospital stay would be warranted. I spoke with the patient and case management, the on-call hospitalist was consulted. Prior/Outside records/notes reviewed: None Imaging/x-ray results per my interpretation: Chronic Medical/Social conditions affecting care: None Care/Management discussed with: Case management and the on-call hospitalist. Level of care consideration(s): After review of the information above and other included data: --I believe the patient requires escalation of care to admission DISPOSITION: Admission Past Med/Surg History Problem List (Updated 03/23/25 @ 01:26 by Oren Koch MD) UTI (urinary tract infection) (Acute) Failure of outpatient treatment (Acute) Acute urinary retention (Acute) Personal history of colon polyps, unspecified Pain in left toe(s) Callus Porokeratosis 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 Leg skin lesion, left Loss of taste Dry mouth, unspecified Burning mouth syndrome Hyperlipemia Gout COPD (chronic obstructive pulmonary disease) Arthritis History of COVID-19 (Acute) S/P foot surgery, right (Acute) Morbid obesity Sleep apnea Snoring Excessive daytime sleepiness Vitamin D deficiency (Chronic) Inflammatory polyarthritis (Chronic) Iron deficiency anemia Urge incontinence Acid reflux Sacral radiculopathy (Acute) Insomnia (Acute) Dyslipidemia (Acute) Disc degeneration, lumbar (Acute) Depression Anxiety Migraine (Acute) Hypertension (Acute) Medical History Hx of insomnia Hx of Lyme disease (2018) HTN (hypertension) Migraine Anxiety Depression Disc degeneration, lumbar Acid reflux History of anemia Arthritis Hx of gout Hyperlipidemia Squamous cell carcinoma of lower leg left, removed History of COVID-19 (2022) no hosp; resolved Sleep apnea noncompliant w/ device 04/21/25, sx planned to implant the Inspire device COPD (chronic obstructive pulmonary disease) no inhaler use Hypercholesteremia duplicate Tubular adenoma of colon H/O Osteoarthritis Renal stone hx - able to pass on own Surgical History H/O squamous cell carcinoma excision (06/14/24) H/O neck surgery H/O laminectomy History of section H/O foot surgery Nausea and vomiting after administration of anesthetic agent History of total abdominal hysterectomy and bilateral salpingo-oophorectomy Fusion of spine History of arthroscopy History of esophagogastroduodenoscopy (EGD) (2019) History of colonoscopy (2019) History of tonsillectomy Family History Mother Family history of diabetes mellitus Family history of reaction to anesthesia Diabetes Hypertension Stroke Brother Family history of reaction to anesthesia Cancer Brother Family history of reaction to anesthesia Diabetes Father Cancer Grandfather Heart disease Grandmother Colorectal cancer Stroke Son Diabetes Social History Smoking Status: Never smoker Second Hand Exposure: No; Do You Dip or Chew Tobacco: No; Hx Alcohol Use: No Hx Substance Use: No Preferred Language: Citizen Of [place] Communication Ability: Effective Visual Impairment: No Limitations Chip Machine Operator Required: No Beliefs That Will Affect Care: None marital status: Current Living Situation: Spouse current occupational status: employed 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 How many Children do You have: 2 Feels Safe at Home: Yes Diet: regular caffeine: Yes (Tea ) during the past year weight has: remained stable Dental Care, Regularly: Yes Physical Activity Frequency: 5-6 Times per Week Physical Activity Frequency Comment: Walking Seatbelt Use: always Sunscreen Use: No Assistive Devices: Glasses Allergies Allergies Allergy/AdvReac Type Severity Reaction Status Date / Time lorazepam AdvReac Intermediate DELIRIUM, Verified 03/22/25 23:04 CONFUSION Home Meds Home Medications Medication Instructions Recorded Confirmed bupropion HCl 150 mg 24 hr tablet, 150 mg PO QAM 03/10/25 03/22/25 extended release duloxetine 30 mg capsule,delayed 60 mg PO QAM 03/10/25 03/22/25 release rizatriptan 10 mg disintegrating 10 mg PO DIRECTED PRN migraine 03/22/25 03/22/25 tablet headache Previous Rx's Medication Instructions Recorded losartan 50 mg tablet 50 mg PO BID 90 days #180 tabs 05/03/24 albuterol sulfate 90 mcg/actuation 2 puff inhalation Q6H PRN 10/26/24 aerosol inhaler shortness of breath or wheezing #6.7 grams zolpidem 5 mg tablet (Ambien) 5 mg PO HS PRN insomnia #30 tabs 03/02/25 topiramate 50 mg tablet (Topamax) 50 mg PO BID 90 days #180 tabs 03/05/25 cefdinir 300 mg capsule 300 mg PO BID #14 caps 03/22/25 Results & Data (ED) Vital Signs Vital Signs - 24 hr 03/22/25 22:46 03/23/25 01:00 Temperature 36.5 C Temperature Source Temporal Artery Scan Pulse Rate 103 H Pulse Rate [Finger] 72 Pulse Rhythm [Finger] Regular Pulse Strength [Finger] Normal Respiratory Rate 19 20 Respiratory Effort / Characteristics Non-Labored Spontaneous Non-Labored Spontaneous Respiratory Depth Normal Normal Respiratory Pattern Regular Regular Blood Pressure 161/101 H Blood Pressure [Right Arm] 131/77 Blood Pressure Mean 121 Blood Pressure Mean [Right Arm] 95 Blood Pressure Position [Right Arm] Lying Pulse Oximetry 97 98 Oxygen Delivery Method Room Air Room Air Sepsis Recent Fever Within 48 Hours No Sepsis New/Unexplained Change in Mental Status N/A Sepsis Action Taken by Nursing No Action Required Home Medications Current Medication List: was personally reviewed by me Laboratory Data Attestation: I reviewed the patient's lab results. 03/22/25 23:15 03/22/25 23:15 Lab Results 03/22/25 03/23/25 Range/Units 23:15 00:55 WBC 9.71 (4.8-10.8) K/ul RBC 4.40 (4.20-5.40) M/uL Hgb 11.0 L (12.0-16.0) g/dl Hct 34.2 L (37.0-47.0) % MCV 77.7 L (80.0-100.0) fL MCH 25.0 (25.0-34.0) pg MCHC 32.2 (32.0-36.0) g/dL RDW Std Deviation 42.0 (36.4-46.3) fL RDW Coeff of Wander 14.8 H (11.5-14.5) % Plt Count 340 (130-400) K/uL MPV 9.4 (9.4-12.4) fL Immature Gran % (Auto) 0.1 % Neut % (Auto) 67.1 % Lymph % (Auto) 19.8 % Sebastian % (Auto) 11.4 % Eos % (Auto) 1.3 % Baso % (Auto) 0.3 % Neut # (Auto) 6.51 H (1.40-6.50) K/uL Lymph # (Auto) 1.92 (1.20-3.40) K/uL Sebastian # (Auto) 1.11 H (0.11-0.59) K/uL Eos # (Auto) 0.13 (0.00-0.50) K/uL Baso # (Auto) 0.03 (0.00-0.20) K/uL Immature Gran # (Auto) 0.01 (0.01-0.20) K/uL Sodium 138 (136-145) mmol/L Potassium 3.9 (3.5-5.1) mmol/L Chloride 107 (98-107) mmol/L Carbon Dioxide 25 (21-32) mmol/L Anion Gap 6 (3-11) BUN 31 H (6-23) mg/dl Creatinine 1.07 (0.6-1.2) mg/dl Est Cr Clr Drug Dosing 61.6 ml/min eGFR 58.00 BUN/Creatinine Ratio 29.0 H (10-20) Glucose 92 (70-99(Fasting)) mg/dl Calcium 8.9 (8.6-10.3) mg/dl Magnesium 2.1 (1.7-2.4) mg/dl Total Bilirubin 0.2 (0.2-1.0) mg/dl AST 12 L (13-39) U/L ALT 13 (7-52) U/L Alkaline Phosphatase 124 H (34-104) U/L Total Protein 7.0 (6.0-8.3) gm/dl Albumin 3.7 (3.4-5.0) gm/dl Globulin 3.3 (2.5-4.0) gm/dl Albumin/Globulin Ratio 1.1 (0.9-2) Lipase 26 (11-82) U/L Urine Color Yellow Urine Appearance Clear (Clear) Urine pH 5.5 (4.5-7.5) Ur Specific [place] 1.023 (1.000-1.030) Urine Protein Negative (Negative) Urine Glucose (UA) Negative (Negative) Urine Ketones Negative (Negative) Urine Blood Negative (Negative) Urine Nitrite Negative (Negative) Urine Bilirubin Negative (Negative) Urine Urobilinogen Negative (Negative) Ur Leukocyte Esterase 2+ H (Negative) Urine WBC (Auto) >50 H (0-5) /hpf Urine RBC (Auto) 0-2 (0-2) /hpf U Hyaline Cast (Auto) 0-2 (0-2) /lpf U Epithel Cells (Auto) 0-2 (0-2) /hpf Urine Bacteria (Auto) None Seen (None Seen) Urine Comment Administered Medications Discontinued Medications Sodium Chloride (Nss) 1,000 mls @ 999 mls/hr IV .Q1H1M STA Stop: 03/22/25 23:51 Last Infusion: 03/23/25 00:31 Dose: Infused Documented By: Admin: 03/22/25 23:26 Dose: 999 mls/hr Documented By: JACKLYN Ioversol (Optiray 320 100ml) 93 ml IV ONCE ONE Stop: 03/23/25 00:18 Last Admin: 03/23/25 00:18 Dose: 93 ml Documented By: ANITHA Ketorolac Tromethamine (Ketorolac Tromethamine 15 Mg/Ml Vial) 10 mg IV NOW ONE Stop: 03/22/25 23:00 Last Admin: 03/22/25 23:21 Dose: 10 mg Documented By: JACKLYN Ondansetron HCl (Ondansetron Inj 2 Mg/Ml 2 Ml Vial) 4 mg IV NOW STA Stop: 03/22/25 23:00 Last Admin: 03/22/25 23:21 Dose: 4 mg Documented By: JACKLYN Imaging Data Radiologist's Impression: Abdomen/Pelvis CT 03/22/25 22:51 EXAM: CT abd pelvis IV con only CLINICAL HISTORY: poss urinary obstruction TECHNIQUE: Contiguous axial images were obtained from the level of the diaphragm to the pubic symphysis with intravenous contrast. Coronal and sagittal reconstructions were likewise performed and are indicated to increase the sensitivity for detecting clinically relevant pathology. If IV contrast material had not been administered, the likelihood of detecting abnormalities relevant to the patient's condition would have been substantially decreased. The CT scan was performed according to ALARA (as low as reasonably achievable). COMPARISON: 02:21:47 ECOLOGY PROFESSOR FINDINGS: The visualized lung bases are clear. The liver is normal in size and shows reduced attenuation. No focal liver lesions are seen. There is no intrahepatic or extrahepatic biliary ductal dilatation. Hepatic vasculature is patent. The gallbladder is present. The spleen, pancreas, and adrenal glands are unremarkable. The kidneys are normal in size and attenuation. There is no perinephric fat stranding. No renal calculi or renal masses are identified. Mild prominence of bilateral pelvicalyceal system likely due to back pressure changes. Stable right renal cortical cyst. The ureters are normal in caliber, and no ureteral calculi are seen. Mesenteric subcentimeter nodes-stable. The bladder appears normal in contour. Pelvic viscera are unremarkable. No focal or diffuse bowel wall thickening or evidence of bowel obstruction is identified. No imaging evidence of appendicitis. Abdominal and pelvic vasculature is patent. No adenopathy or fluid collections are seen. No aggressive-appearing osseous lesions are identified. Tiny fat-containing umbilical hernia. Post interventional changes in lumbar spine. IMPRESSION: Hepatic steatosis, stable. Tiny stable fat-containing umbilical hernia. No other new interval abnormality since prior study. Electronically signed by Keyshawn Sterling 03-23-2025 01:11 AM Discharge Plan Visit Data Chief Complaint: Urinary Symptoms Stated Complaint: UTI, CAN'T URINATE WELL ED Provider: Oren Koch Discharge Problem: Acute urinary retention, Failure of outpatient treatment, UTI (urinary tract infection) Patient Disposition: Admitted As Inpatient Condition: Fair Forms Stand Alone Forms: My [facility] Prescriptions Prescriptions: No Action albuterol sulfate 90 mcg/actuation HFA aerosol inhaler 2 puff inhalation Q6H PRN (Reason: shortness of breath or wheezing) Qty: 6.7 5RF zolpidem [Ambien] 5 mg tablet 5 mg PO HS PRN (Reason: insomnia) Qty: 30 0RF topiramate [Topamax] 50 mg tablet 50 mg PO BID 90 Days Qty: 180 2RF losartan 50 mg tablet 50 mg PO BID 90 Days Qty: 180 3RF cefdinir 300 mg capsule 300 mg PO BID Qty: 14 0RF Rx Instructions: STARTED 03/22/25 rizatriptan 10 mg tablet,disintegrating 10 mg PO DIRECTED PRN (Reason: migraine headache) Rx Instructions: do not exceed 3 doses per 24 hrs bupropion HCl 150 mg tablet extended release 24 hr 150 mg PO QAM duloxetine 30 mg capsule,delayed release(DR/EC) 60 mg PO QAM Referrals Referrals: Sarita Chavarria MD [Primary Care Provider] - Discharge Problem: UTI (urinary tract infection) Qualifiers: Urinary tract infection type: acute cystitis Hematuria presence: without hematuria Qualified Code(s): N30.00 - Acute cystitis without hematuria
[2025-03-22] MEDS: KETOROLAC TROMETHAMINE 15 MG/ML VIAL IV ONE (23:21)
[2025-03-22] MEDS: ONDANSETRON INJ 2 MG/ML 2 ML VIAL IV STA (23:21)
[2025-03-22] MEDS: SODIUM CHLORIDE 0.9% 1,000 ML IV STA (23:26)
[2025-03-22 23:30] LABS: Hematocrit (blood only) 34.2 % (37.0-47.0); Hemoglobin 11.0 g/dl (12.0-16.0); Immature Granulocytes # (auto) 0.01 K/uL (0.01-0.20); Immature Granulocytes % (auto) 0.1 %; Mean Corpuscular Hemoglobin 25.0 pg (25.0-34.0); Mean Corpuscular Volume 77.7 fL (80.0-100.0); Platelet Count 340 K/uL (130-400); RDW Standard Deviation 42.0 fL (36.4-46.3); Red Blood Count 4.40 M/uL (4.20-5.40); White Blood Count 9.71 K/ul (4.8-10.8)
[2025-03-22 23:47] LABS: Alanine Aminotransferase 13.0 U/L (7-52); Albumin Globulin Ratio 1.1 (0.9-2); Albumin Level 3.7 gm/dl (3.4-5.0); Alkaline Phosphatase 124.0 U/L (34-104); Anion Gap 6.0 (3-11); Bilirubin,Total 0.2 mg/dl (0.2-1.0); Blood Urea Nitrogen 31.0 mg/dl (6-23); Calcium 8.9 mg/dl (8.6-10.3); Carbon Dioxide 25.0 mmol/L (21-32); Chloride 107.0 mmol/L (98-107); Creatinine Clr Calc Pharmacy 61.6 ml/min; Globulin 3.3 gm/dl (2.5-4.0); Glucose 92.0 mg/dl (70-99(Fasting)); Lipase 26.0 U/L (11-82); Magnesium 2.1 mg/dl (1.7-2.4); Potassium 3.9 mmol/L (3.5-5.1); Sodium 138.0 mmol/L (136-145); Total Protein 7.0 gm/dl (6.0-8.3)
[2025-03-23] MEDS: OPTIRAY 320 100ml IV ONE (00:18)
--- NOTE | 2025-03-23 01:12 | CT Scan Report ---
EXAM: CT abd pelvis IV con only CLINICAL HISTORY: poss urinary obstruction TECHNIQUE: Contiguous axial images were obtained from the level of the diaphragm to the pubic symphysis with intravenous contrast. Coronal and sagittal reconstructions were likewise performed and are indicated to increase the sensitivity for detecting clinically relevant pathology. If IV contrast material had not been administered, the likelihood of detecting abnormalities relevant to the patient's condition would have been substantially decreased. The CT scan was performed according to ALARA (as low as reasonably achievable). 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 The liver is normal in size and shows reduced attenuation. No focal liver lesions are seen. There is no intrahepatic or extrahepatic biliary ductal dilatation. Hepatic vasculature is patent. The gallbladder is present. The spleen, pancreas, and adrenal glands are unremarkable. The kidneys are normal in size and attenuation. There is no perinephric fat stranding. No renal calculi or renal masses are identified. Mild prominence of bilateral pelvicalyceal system likely due to back pressure changes. Stable right renal cortical cyst. The ureters are normal in caliber, and no ureteral calculi are seen. Mesenteric subcentimeter nodes-stable. The bladder appears normal in contour. Pelvic viscera are unremarkable. No focal or diffuse bowel wall thickening or evidence of bowel obstruction is identified. No imaging evidence of appendicitis. Abdominal and pelvic vasculature is patent. No adenopathy or fluid collections are seen. No aggressive-appearing osseous lesions are identified. Tiny fat-containing umbilical hernia. Post interventional changes in lumbar spine. IMPRESSION: Hepatic steatosis, stable. Tiny stable fat-containing umbilical hernia. No other new interval abnormality since prior study. Electronically signed by Keyshawn Sterling 03-23-2025 01:11 AM
[2025-03-23 01:20] LABS: Appearance Urine Clear (Clear); Bacteria Urine Automated None Seen (None Seen); Cast Urine Automated 0-2 /lpf (0-2); Epithelial Cell Urine Auto 0-2 /hpf (0-2); Glucose Urine UA Negative (Negative); RBC Urine Automated 0-2 /hpf (0-2); WBC Urine Automated >50 /hpf (0-5)
[2025-03-23] MEDS: cefTRIAXone SODIUM 500 MG in DEXTROSE 5% 50 ML IV STA (01:41)
--- NOTE | 2025-03-23 02:26 | History & Physical Report ---
Date of Service March 23, 2025 Assessment & Plan (1) UTI (urinary tract infection): (2) Failure of outpatient treatment: (3) Acute urinary retention: (4) Constipation: Plan The patient is a 64-year-old female with a past medical history including recurrent urinary tract infection, burning mouth syndrome, hyperlipidemia, gout, COPD, excessive daytime sleepiness, depression and anxiety, migraine, and hypertension. The patient presents to the emergency department with complaints of persistent and worsening pelvic and bladder area pain, with decreased ability to urinate over the past several days. She was treated by her PCP for a urinary tract infection on February 01 that grew pansensitive E. coli treated with 5 days of cephalexin. Her symptoms never completely went away, and on 03/07 she went to express care and was treated with Macrobid twice daily for 5 days, for another E. coli UTI was intermediate to cefuroxime, and otherwise pansensitive. She went to her PCP on 03/22, with worsening symptoms of pelvic pressure, discomfort, and decreased ability to urinate, and was given a prescription for cefdinir twice daily, of which she took 1 day status. Due to worsening symptoms, she presented to the ED for assessment. Urinalysis and urine culture with sensitivity were sent, and she was empirically started on ceftriaxone 2 g IV. She was also given normal saline 1.5 L fluid bolus, Zofran 4 mg IV, Toradol 10 mg IV, and had a Rivera catheter placed after having a PVR with 600 cc urinary retention, and was then referred for evaluation [facility]. She does also report constipation. CT scan of abdomen and pelvis showed hepatic steatosis but was stable, and no acute other findings. Urinalysis showed white blood cells, and leukocyte esterase, with no bacteria visible. Urinary tract infection/pelvic pain/failure of outpatient treatment- Follow urine culture and sensitivity Culture on 02/01 grew pansensitive E. coli was treated by her PCP with cephalexin x 5 days Culture on 03/07 grew E. coli only with intermediate resistant to cefuroxime, and was treated by express care with Macrobid x 5 days On 03/22, she was seen by her PCP, urinalysis and urine culture sensitivity ordered, and patient was given a prescription for cefdinir x 5 days. Due to worsening symptoms of pelvic pressure and discomfort, and symptoms of urinary retention with decreased ability to urinate, she presented to the ED this evening for assessment. PVR showed 600 cc urinary retention, Rivera catheter was placed, and urine specimen was sent for analysis. Patient was started on ceftriaxone 2 g IV by the ED, and will be continued every 24 hours Urinalysis in the ED shows white blood cells and leukocyte esterase, without bacteria. Question if this is a partially treated bacterial infection, or possibly a yeast infection. Pelvic pain symptoms may be related to yeast infection, underlying interstitial cystitis that she has had secondary bacterial infections CT scan abdomen pelvis did not show any bladder or kidney irregularities, and did show stable hepatic steatosis. Continue Rivera catheter. Give first dose of tamsulosin 0.4 mg p.o. now, and then at bedtime Zofran 4 mg IV every 6 hours as needed Pantoprazole 40 mg IV every morning. She received a total of 1.5 L normal saline bolus from the ED Plasma-Lyte at 80 mL/h x 1 L Continue ceftriaxone 2 g IV every 24 hours Acetaminophen 650 mg by mouth every 6 hours as needed for mild pain or fever Would have low threshold for starting fluconazole. Patient is on duloxetine, which in particular is known to cause issues with constipation and urinary retention. Depression and anxiety/migraine/insomnia- Continue bupropion, topiramate, zolpidem, and for now continue duloxetine, but decrease dose from 60 to 30 mg Continue rizatriptan as needed Hypertension- Continue losartan with hold parameters Asthma/history of bronchospasm- Continue albuterol HFA as needed Weight management- Office Notes from from 02/01 said she was to start tirzepatide, but she reports never taking it History of Present Illness Chief Complaint: The patient presents to the emergency department with complaints of persistent and worsening pelvic and bladder area pain, with decreased ability to urinate over the past several days. She was treated by her PCP for a urinary tract infection on February 01 that grew pansensitive E. coli treated with 5 days of cephalexin. Her symptoms never completely went away, and on 03/07 she went to express care and was treated with Macrobid twice daily for 5 days, for another E. coli UTI was intermediate to cefuroxime, and otherwise pansensitive. She went to her PCP on 03/22, with worsening symptoms of pelvic pressure, discomfort, and decreased ability to urinate, and was given a prescription for cefdinir twice daily, of which she took 1 day status. Due to worsening symptoms, she presented to the ED for assessment. Urinalysis and urine culture with sensitivity were sent, and she was empirically started on ceftriaxone 2 g IV. She was also given normal saline 1.5 L fluid bolus, Zofran 4 mg IV, Toradol 10 mg IV, and had a Rivera catheter placed after having a PVR with 600 cc urinary retention, and was then referred for evaluation for admission to the [facility] service. She does also report constipation. Primary Care Provider: Sarita Chavarria MD The patient is a 64-year-old female with a past medical history including recurrent urinary tract infection, burning mouth syndrome, hyperlipidemia, gout, COPD, excessive daytime sleepiness, depression and anxiety, migraine, and hypertension. The patient presents to the emergency department with complaints of persistent and worsening pelvic and bladder area pain, with decreased ability to urinate over the past several days. She was treated by her PCP for a urinary tract infection on February 01 that grew pansensitive E. coli treated with 5 days of cephalexin. Her symptoms never completely went away, and on 03/07 she went to [facility] care and was treated with Macrobid twice daily for 5 days, for another E. coli UTI was intermediate to cefuroxime, and otherwise pansensitive. She went to her PCP on 03/22, with worsening symptoms of pelvic pressure, discomfort, and decreased ability to urinate, and was given a prescription for cefdinir twice daily, of which she took 1 day status. Due to worsening symptoms, she presented to the ED for assessment. Urinalysis and urine culture with sensitivity were sent, and she was empirically started on ceftriaxone 2 g IV. She was also given normal saline 1.5 L fluid bolus, Zofran 4 mg IV, Toradol 10 mg IV, and had a Rivera catheter placed after having a PVR with 600 cc urinary retention, and was then referred for evaluation for [facility]. She does also report constipation. CT scan of abdomen and pelvis showed hepatic steatosis but was stable, and no acute other findings. Urinalysis showed white blood cells, and leukocyte esterase, with no bacteria visible. Allergies Allergy/AdvReac Type Severity Reaction Status Date / Time lorazepam AdvReac Intermediate DELIRIUM, Verified 03/22/25 23:04 CONFUSION Home Medications Medication Instructions Recorded Confirmed Type losartan 50 mg tablet 50 mg PO BID 90 days #180 tabs 05/03/24 03/22/25 Rx albuterol sulfate 90 mcg/actuation 2 puff inhalation Q6H PRN 10/26/24 03/22/25 Rx aerosol inhaler shortness of breath or wheezing #6.7 grams zolpidem 5 mg tablet (Ambien) 5 mg PO HS PRN insomnia #30 tabs 03/02/25 03/22/25 Rx topiramate 50 mg tablet (Topamax) 50 mg PO BID 90 days #180 tabs 03/05/25 03/22/25 Rx bupropion HCl 150 mg 24 hr tablet, 150 mg PO QAM 03/10/25 03/22/25 History extended release duloxetine 30 mg capsule,delayed 60 mg PO QAM 03/10/25 03/22/25 History release cefdinir 300 mg capsule 300 mg PO BID #14 caps 03/22/25 03/22/25 Rx rizatriptan 10 mg disintegrating 10 mg PO DIRECTED PRN migraine 03/22/25 03/22/25 History tablet headache Past Med/Surg History Problem List (Updated 03/23/25 @ 03:07 by Kirit Quiles MD) Constipation UTI (urinary tract infection) (Acute) Failure of outpatient treatment (Acute) Acute urinary retention (Acute) Personal history of colon polyps, unspecified Pain in left toe(s) Callus Porokeratosis 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 Leg skin lesion, left Loss of taste Dry mouth, unspecified Burning mouth syndrome Hyperlipemia Gout COPD (chronic obstructive pulmonary disease) Arthritis History of COVID-19 (Acute) S/P foot surgery, right (Acute) Morbid obesity Sleep apnea Snoring Excessive daytime sleepiness Vitamin D deficiency (Chronic) Inflammatory polyarthritis (Chronic) Iron deficiency anemia Urge incontinence Acid reflux Sacral radiculopathy (Acute) Insomnia (Acute) Dyslipidemia (Acute) Disc degeneration, lumbar (Acute) Depression Anxiety Migraine (Acute) Hypertension (Acute) Medical History Hx of insomnia Hx of Lyme disease (2018) HTN (hypertension) Migraine Anxiety Depression Disc degeneration, lumbar Acid reflux History of anemia Arthritis Hx of gout Hyperlipidemia Squamous cell carcinoma of lower leg left, removed History of COVID-19 (2022) no hosp; resolved Sleep apnea noncompliant w/ device 04/21/25, sx planned to implant the Inspire device COPD (chronic obstructive pulmonary disease) no inhaler use Hypercholesteremia duplicate Tubular adenoma of colon H/O Osteoarthritis Renal stone hx - able to pass on own Surgical History H/O squamous cell carcinoma excision (06/14/24) H/O neck surgery H/O laminectomy History of section H/O foot surgery Nausea and vomiting after administration of anesthetic agent History of total abdominal hysterectomy and bilateral salpingo-oophorectomy Fusion of spine History of arthroscopy History of esophagogastroduodenoscopy (EGD) (2019) History of colonoscopy (2019) History of tonsillectomy Family History Mother Family history of diabetes mellitus Family history of reaction to anesthesia Diabetes Hypertension Stroke Brother Family history of reaction to anesthesia Cancer Brother Family history of reaction to anesthesia Diabetes Father Cancer Grandfather Heart disease Grandmother Colorectal cancer Stroke Son Diabetes Social History Smoking Status: Never smoker Second Hand Exposure: No; Do You Dip or Chew Tobacco: No; Hx Alcohol Use: No Hx Substance Use: No Preferred Language: Czech Communication Ability: Effective Visual Impairment: No 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 Beliefs That Will Affect Care: None marital status: Current Living Situation: Spouse current occupational status: employed 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 How many Children do You have: 2 Feels Safe at Home: Yes Diet: regular caffeine: Yes (Tea ) during the past year weight has: remained stable Dental Care, Regularly: Yes Physical Activity Frequency: 5-6 Times per Week Physical Activity Frequency Comment: Walking Seatbelt Use: always Sunscreen Use: No Assistive Devices: Glasses Review of Systems Review of Systems: The patient denies chest pain, palpitations, shortness of breath, dyspnea on exertion, cough, lower extremity swelling, sore throat, fevers, chills, sweats, blood in urine or stool, lightheadedness, dizziness, headache, memory loss, loss of consciousness, rash, abnormal bruising or bleeding, imbalance, focal weakness, numbness or tingling in arms or legs, generalized arthralgias or myalgias, change in chronic back pain, or night sweats. The review of systems is otherwise negative other than for that already noted above, and at least 10 systems have been reviewed. Physical Exam Physical Exam: The patient is awake, alert and oriented 3, well developed and well nourished, normocephalic and atraumatic, lying in bed and in no acute distress. HEENT--PERRL, EOMI, mucous membranes and oropharynx mildly dry. Neck--supple. No JVD. No bruits. Thyroid normal, trachea midline, no adenopathy. Heart--normal S1 and S2. No murmurs, rubs or gallops. Lungs--clear bilaterally, no respiratory distress, no accessory muscle use. Abdomen--normal bowel sounds and soft. Suprapubic tenderness. Nondistended. Obese. Extremities--No edema. There are good distal pulses b/l. Dermatologic--normal skin turgor, normal color, no abnormal lymph nodes, no rash. Neurologic--cranial nerves II through XII grossly intact. Rheumatologic--normal range of motion. Psychiatric--normal affect. Results & Data Results & Data Vital Signs (Past 12 Hours) Vital Signs Temp Pulse Pulse Resp BP BP Pulse Ox 03/23/25 01:00 72 20 131/77 98 03/22/25 22:46 36.5 C 103 H 19 161/101 H 97 O2 Del Method 03/23/25 01:00 Room Air 03/22/25 22:46 Room Air Laboratory Results Laboratory Results WBC 9.71 K/ul (4.8-10.8) 03/22/25 23:15 RBC 4.40 M/uL (4.20-5.40) 03/22/25 23:15 Hgb 11.0 g/dl (12.0-16.0) L 03/22/25 23:15 Hct 34.2 % (37.0-47.0) L 03/22/25 23:15 MCV 77.7 fL (80.0-100.0) L 03/22/25 23:15 MCH 25.0 pg (25.0-34.0) 03/22/25 23:15 MCHC 32.2 g/dL (32.0-36.0) 03/22/25 23:15 RDW Std Deviation 42.0 fL (36.4-46.3) 03/22/25 23:15 RDW Coeff of Wander 14.8 % (11.5-14.5) H 03/22/25 23:15 Plt Count 340 K/uL (130-400) 03/22/25 23:15 MPV 9.4 fL (9.4-12.4) 03/22/25 23:15 Immature Gran % (Auto) 0.1 % 03/22/25 23:15 Neut % (Auto) 67.1 % 03/22/25 23:15 Lymph % (Auto) 19.8 % 03/22/25 23:15 [place] % (Auto) 11.4 % 03/22/25 23:15 Eos % (Auto) 1.3 % 03/22/25 23:15 Baso % (Auto) 0.3 % 03/22/25 23:15 Neut # (Auto) 6.51 K/uL (1.40-6.50) H 03/22/25 23:15 Lymph # (Auto) 1.92 K/uL (1.20-3.40) 03/22/25 23:15 [place] # (Auto) 1.11 K/uL (0.11-0.59) H 03/22/25 23:15 Eos # (Auto) 0.13 K/uL (0.00-0.50) 03/22/25 23:15 Baso # (Auto) 0.03 K/uL (0.00-0.20) 03/22/25 23:15 Immature Gran # (Auto) 0.01 K/uL (0.01-0.20) 03/22/25 23:15 Sodium 138 mmol/L (136-145) 03/22/25 23:15 Potassium 3.9 mmol/L (3.5-5.1) 03/22/25 23:15 Chloride 107 mmol/L (98-107) 03/22/25 23:15 Carbon Dioxide 25 mmol/L (21-32) 03/22/25 23:15 Anion Gap 6 (3-11) 03/22/25 23:15 BUN 31 mg/dl (6-23) H 03/22/25 23:15 Creatinine 1.07 mg/dl (0.6-1.2) 03/22/25 23:15 Est Cr Clr Drug Dosing 61.6 ml/min 03/22/25 23:15 eGFR 58.00 03/22/25 23:15 BUN/Creatinine Ratio 29.0 (10-20) H 03/22/25 23:15 Glucose 92 mg/dl (70-99(Fasting)) 03/22/25 23:15 Calcium 8.9 mg/dl (8.6-10.3) 03/22/25 23:15 Magnesium 2.1 mg/dl (1.7-2.4) 03/22/25 23:15 Total Bilirubin 0.2 mg/dl (0.2-1.0) 03/22/25 23:15 AST 12 U/L (13-39) L 03/22/25 23:15 ALT 13 U/L (7-52) 03/22/25 23:15 Alkaline Phosphatase 124 U/L (34-104) H 03/22/25 23:15 Total Protein 7.0 gm/dl (6.0-8.3) 03/22/25 23:15 Albumin 3.7 gm/dl (3.4-5.0) 03/22/25 23:15 Globulin 3.3 gm/dl (2.5-4.0) 03/22/25 23:15 Albumin/Globulin Ratio 1.1 (0.9-2) 03/22/25 23:15 Lipase 26 U/L (11-82) 03/22/25 23:15 Urine Color Yellow 03/23/25 00:55 Urine Appearance Clear (Clear) 03/23/25 00:55 Urine pH 5.5 (4.5-7.5) 03/23/25 00:55 Ur Specific [place] 1.023 (1.000-1.030) 03/23/25 00:55 Urine Protein Negative (Negative) 03/23/25 00:55 Urine Glucose (UA) Negative (Negative) 03/23/25 00:55 Urine Ketones Negative (Negative) 03/23/25 00:55 Urine Blood Negative (Negative) 03/23/25 00:55 Urine Nitrite Negative (Negative) 03/23/25 00:55 Urine Bilirubin Negative (Negative) 03/23/25 00:55 Urine Urobilinogen Negative (Negative) 03/23/25 00:55 Ur Leukocyte Esterase 2+ (Negative) H 03/23/25 00:55 Urine WBC (Auto) >50 /hpf (0-5) H 03/23/25 00:55 Urine RBC (Auto) 0-2 /hpf (0-2) 03/23/25 00:55 U Hyaline Cast (Auto) 0-2 /lpf (0-2) 03/23/25 00:55 U Epithel Cells (Auto) 0-2 /hpf (0-2) 03/23/25 00:55 Urine Bacteria (Auto) None Seen (None Seen) 03/23/25 00:55 Urine Comment 03/23/25 00:55 Impressions Abdomen/Pelvis CT 03/22/25 22:51 EXAM: CT abd pelvis IV con only CLINICAL HISTORY: poss urinary obstruction TECHNIQUE: Contiguous axial images were obtained from the level of the diaphragm to the pubic symphysis with intravenous contrast. Coronal and sagittal reconstructions were likewise performed and are indicated to increase the sensitivity for detecting clinically relevant pathology. If IV contrast material had not been administered, the likelihood of detecting abnormalities relevant to the patient's condition would have been substantially decreased. The CT scan was performed according to ALARA (as low as reasonably achievable). 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 The liver is normal in size and shows reduced attenuation. No focal liver lesions are seen. There is no intrahepatic or extrahepatic biliary ductal dilatation. Hepatic vasculature is patent. The gallbladder is present. The spleen, pancreas, and adrenal glands are unremarkable. The kidneys are normal in size and attenuation. There is no perinephric fat stranding. No renal calculi or renal masses are identified. Mild prominence of bilateral pelvicalyceal system likely due to back pressure changes. Stable right renal cortical cyst. The ureters are normal in caliber, and no ureteral calculi are seen. Mesenteric subcentimeter nodes-stable. The bladder appears normal in contour. Pelvic viscera are unremarkable. No focal or diffuse bowel wall thickening or evidence of bowel obstruction is identified. No imaging evidence of appendicitis. Abdominal and pelvic vasculature is patent. No adenopathy or fluid collections are seen. No aggressive-appearing osseous lesions are identified. Tiny fat-containing umbilical hernia. Post interventional changes in lumbar spine. IMPRESSION: Hepatic steatosis, stable. Tiny stable fat-containing umbilical hernia. No other new interval abnormality since prior study. Electronically signed by Keyshawn Sterling 03-23-2025 01:11 AM Code Status & VTE Plan Code Status Full code VTE Prophylaxis Plan VTE Prophylaxis will be ordered: Yes PG Care Time/CCT Total # of Minutes Spent Total Time Spent with Patient: Total time spent is greater than 50% in coordination of care (as documented) at patient's floor/unit and/or counseling patient: Coding Level of Care Code 97856 INT INP/OBS CARE MIN Diagnoses UTI (urinary tract infection) N30.00 Hematuria presence: without hematuria Urinary tract infection type: acute cystitis Failure of outpatient treatment Z78.9 Acute urinary retention R33.8 Constipation K59.00 (1) UTI (urinary tract infection) Hematuria presence: without hematuria Urinary tract infection type: acute cystitis Qualified Code(s): N30.00 - Acute cystitis without hematuria
[2025-03-23] MEDS ORDERED: LACTATED RINGER'S 1,000 ML IV SCH (02:30)
[2025-03-23] MEDS: cefTRIAXone SODIUM 2,000 MG/50 ML BAG IV STA (02:40)
[2025-03-23] MEDS: TAMSULOSIN HCL 0.4 MG CAP PO ONE (02:40)
[2025-03-23] MEDS: SODIUM CHLORIDE 0.9% 500 ML IV ONE (02:44)
[2025-03-23] MEDS ORDERED: RIZATRIPTAN BENZOATE 10 MG TAB PO PRN (02:58)
[2025-03-23] MEDS ORDERED: ONDANSETRON INJ 2 MG/ML 2 ML VIAL IV PRN (02:58)
[2025-03-23] MEDS ORDERED: ALBUTEROL HFA 8 GM INHALER INH PRN (02:58)
[2025-03-23] MEDS: PLASMA-LYTE A 1,000 ML IV SCH (04:06)
[2025-03-23 04:38] LABS: Hematocrit (blood only) 33.6 % (37.0-47.0); Hemoglobin 10.6 g/dl (12.0-16.0); Immature Granulocytes # (auto) 0.02 K/uL (0.01-0.20); Immature Granulocytes % (auto) 0.3 %; Mean Corpuscular Hemoglobin 24.8 pg (25.0-34.0); Mean Corpuscular Volume 78.5 fL (80.0-100.0); Platelet Count 302 K/uL (130-400); RDW Standard Deviation 42.2 fL (36.4-46.3); Red Blood Count 4.28 M/uL (4.20-5.40); White Blood Count 7.17 K/ul (4.8-10.8)
[2025-03-23 04:53] LABS: Albumin Level 3.1 gm/dl (3.4-5.0); Anion Gap 6.0 (3-11); Blood Urea Nitrogen 26.0 mg/dl (6-23); Calcium 8.2 mg/dl (8.6-10.3); Carbon Dioxide 25.0 mmol/L (21-32); Chloride 107.0 mmol/L (98-107); Creatinine Clr Calc Pharmacy 74.9 ml/min; Glucose 98.0 mg/dl (70-99(Fasting)); Potassium 3.9 mmol/L (3.5-5.1); Sodium 138.0 mmol/L (136-145)
[2025-03-23 05:09] LABS: INR 1.0 (0.9-1.1); Prothrombin Time 10.6 Seconds (9.0-12.0)
[2025-03-23] MEDS: LOSARTAN POTASSIUM 50 MG TAB PO SCH (08:46)
[2025-03-23] MEDS: PANTOprazole 40 MG/10 ML SYR IV SCH (08:47)
[2025-03-23] MEDS: TOPIRAMATE 50 MG TAB PO SCH (08:47)
--- NOTE | 2025-03-23 11:56 | Hospitalist Progress Note ---
Date of Service March 23, 2025 Assessment & Plan (1) UTI (urinary tract infection): (2) Failure of outpatient treatment: (3) Acute urinary retention: (4) Constipation: Plan The patient is a 64-year-old female with a past medical history including recurrent urinary tract infection, burning mouth syndrome, hyperlipidemia, gout, COPD, excessive daytime sleepiness, depression and anxiety, migraine, and hypertension. She presents to the ER with worsening pelvic pressure/discomfort, difficulty urinating, and concern for recurrent UTI. She has been treated for multiple recent UTIs, 1 culture with intermediate resistance cefuroxime otherwise pansensitive. Acute urinary retention,? UTI UA with large white blood cell count, minimal contamination. Gram stain unremarkable Pending culture 02/01 pansensitive UTI treated with Keflex x 5 days 03/07 E. coli intermediate resistance to cefuroxime, treated with Macrobid x 5 days 03/22 was seen by PCP, treated with cefdinir x 5 days Recurrent pelvic pressure and retention of 600 cc at time of ER assessment She has not been septic/toxic at any point. CTA/P shows no renal/bladder abnormalities. Suspect she may have intermittent urinary retention +/- recurrent UTIs rather than a continuous untreated UTI. Duloxetine dose decreased as is contribute to retention Continue Flomax Voiding trial this afternoon. If she fails voiding trial then we will have to replace Rivera and follow-up as outpatient with urology She is having some chills on 03/23 but does not appear systemically toxic. Will add Pro-Jermain, UCx is still pending. She this morning has developed a dry cough, significant sinus discomfort, in addition to her chills likely reflective ofViral URI. She does not have a leukocytosis. Given new cough and chills will add chest x-ray and quad screen. If no lobar pneumonia seen and quad screen is negative will treat as likely viral URI. BioFire deferred as this is unlikely to change acute management. If chest x-ray shows lobar pneumonia or PCT is negative then can complete 5 days of Rocephin/azithromycin versus doxycycline and add MRSA nare. Depression and anxiety/migraine/insomnia- Continue bupropion, topiramate, zolpidem, and for now continue duloxetine, but decrease dose from 60 to 30 mg Continue rizatriptan as needed Hypertension- Continue losartan Asthma/history of bronchospasm- Continue albuterol HFA as needed Patient has a dry cough and congestion but no wheezing. No evidence of acute asthma exacerbation at time of reassessment Weight management- Office Notes from from 02/01 said she was to start tirzepatide, but she reports never taking it DVT prophylaxis: Lovenox Admission and Anticipated Discharge Date Admission Date: March 23, 2025 Subjective Seen at the bedside. She reports that she has some sinus congestion, and some chills this morning which are not typical for her and have just started in the last 24 hours She has a little bit of nausea/diffuse abdominal discomfort but no pain No change in bowel movements Rivera catheter is draining urine appropriately Cough is nonproductive. She is not short of breath Physical Exam Physical Exam: General: A&Ox3. NAD. Cooperative. HEENT: Atraumatic, normocephalic. Sinus congestion noted. Vision and hearing grossly intact Pulm: CTAB A&P. -wheezes, -rales, -rhonchi. Symmetrical chest rise. No increase in work of breathing. No respiratory distress. Coughs frequently during deep breathing. Cardiac: RRR, -mrg. Radial pulses intact and symmetrical. Abdominal: Minimal diffuse discomfort on palpation however is not overtly tender/denies pain, abdomen is not distended or rigid. Abdomen is soft. Bowel sounds are intact Results & Data Results & Data Vital Signs (Past 12 Hours) Vital Signs Pulse Resp BP Pulse Ox O2 Del Method 03/23/25 08:00 68 16 125/67 99 Room Air 03/23/25 06:00 80 16 108/71 96 Room Air 03/23/25 04:00 81 16 123/59 L 97 Room Air 03/23/25 03:35 85 16 126/83 93 Room Air 03/23/25 03:00 75 16 126/83 95 Room Air 03/23/25 03:00 75 16 126/83 96 Room Air 03/23/25 02:00 72 20 128/85 98 Room Air 03/23/25 01:00 72 20 131/77 98 Room Air PG Care Time/CCT Total # of Minutes Spent Total Time Spent with Patient: Total time spent is greater than 50% in coordination of care (as documented) at patient's floor/unit and/or counseling patient: Coding Level of Care Code None Diagnoses UTI (urinary tract infection) N30.00 Hematuria presence: without hematuria Urinary tract infection type: acute cystitis Failure of outpatient treatment Z78.9 Acute urinary retention R33.8 Constipation K59.00 (1) UTI (urinary tract infection) Hematuria presence: without hematuria Urinary tract infection type: acute cystitis Qualified Code(s): N30.00 - Acute cystitis without hematuria
[2025-03-23 12:50] LABS: Influenza A virus by PCR Negative (Neg); Influenza B virus by PCR Negative (Neg); SARS CoV2 RNA(COVID-19) Ceph NEGATIVE (Negative)
--- NOTE | 2025-03-23 14:28 | XRay Report ---
XR chest 2V PA/lateral CLINICAL HISTORY: cough, chills. PNA eval COMPARISON STUDY: 12/26/2021 FINDINGS: The cardiac and mediastinal contours remain stable. There is stable mild elevation/eventrat ion right hemidiaphragm. There is no failure. There is no focal pulmonary consolidation. There are no pleural effusions. There are postsurgical changes of a cervical spinal fusion. There is a small line ar opacity within the left midlung zone likely representing scar or atelectasis IMPRESSION: No active disease in the chest. ACT 112: Negative or not required by law. Electronically signed by: Hermelindo Batista M.D. 03/23/2025 2:26 PM
[2025-03-23] MEDS: ACETAMINOPHEN 325 MG TAB PO PRN (20:01)
[2025-03-23] MEDS: TAMSULOSIN HCL 0.4 MG CAP PO SCH (22:11)
[2025-03-23] MEDS: ZOLPIDEM TARTRATE 5 MG TAB PO PRN (22:11)
[2025-03-24 07:19] LABS: Hematocrit (blood only) 34.5 % (37.0-47.0); Hemoglobin 10.8 g/dl (12.0-16.0); Immature Granulocytes # (auto) 0.02 K/uL (0.01-0.20); Immature Granulocytes % (auto) 0.4 %; Mean Corpuscular Hemoglobin 24.8 pg (25.0-34.0); Mean Corpuscular Volume 79.1 fL (80.0-100.0); Platelet Count 315 K/uL (130-400); RDW Standard Deviation 42.9 fL (36.4-46.3); Red Blood Count 4.36 M/uL (4.20-5.40); White Blood Count 5.65 K/ul (4.8-10.8)
[2025-03-24 07:37] LABS: Albumin Level 3.2 gm/dl (3.4-5.0); Anion Gap 5.0 (3-11); Blood Urea Nitrogen 20.0 mg/dl (6-23); Calcium 8.2 mg/dl (8.6-10.3); Carbon Dioxide 27.0 mmol/L (21-32); Chloride 108.0 mmol/L (98-107); Creatinine Clr Calc Pharmacy 64.0 ml/min; Glucose 128.0 mg/dl (70-99(Fasting)); Magnesium 2.2 mg/dl (1.7-2.4); Potassium 3.9 mmol/L (3.5-5.1); Sodium 140.0 mmol/L (136-145)
[2025-03-24 07:56] LABS: INR 1.0 (0.9-1.1); Partial Thromboplastin Time 46 Seconds (21-31); Prothrombin Time 10.9 Seconds (9.0-12.0)
[2025-03-24 08:14] VITALS: BP 134/82; PULSE 87; RESP 16; TEMP 97.7; O2SAT 97
--- NOTE | 2025-03-24 09:54 | Discharge Summary ---
Discharge Summary Date of Service March 24, 2025 Principal Dx & Hospital Course #1 = Principal Diagnosis (1) UTI (urinary tract infection): (2) Failure of outpatient treatment: (3) Acute urinary retention: (4) Constipation: Plan The patient is a 64-year-old female with a past medical history including recurrent urinary tract infection, burning mouth syndrome, hyperlipidemia, gout, COPD, excessive daytime sleepiness, depression and anxiety, migraine, and hypertension. She presents to the ER with worsening pelvic pressure/discomfort, difficulty urinating, and concern for recurrent UTI. She has been treated for multiple recent UTIs, 1 culture with intermediate resistance cefuroxime otherwise pansensitive. To do as outpatient: 1. Complete 4 additional days of cefdinir twice daily for suspected/possible UTI 2. Follow-up final urine cultures 3. Continue Flomax 4. Follow-up with urology within 1 week for urinary retention and voiding trial 5. Continue decreased dose of duloxetine. Further down titrate as tolerated as this can contribute to retention. Can consider down titration of bupropion as this can rarely also contribute to retention Acute urinary retention,? UTI UA with large white blood cell count, minimal contamination. Gram stain unremarkable Pending culture 02/01 pansensitive UTI treated with Keflex x 5 days 03/07 E. coli intermediate resistance to cefuroxime, treated with Macrobid x 5 days 03/22 was seen by PCP, treated with cefdinir x 5 days Recurrent pelvic pressure and retention of 600 cc at time of ER assessment She has not been septic/toxic at any point. CTA/P shows no renal/bladder abnormalities. Suspect she may have intermittent urinary retention +/- recurrent UTIs rather than a continuous untreated UTI. Duloxetine dose decreased as is contribute to retention Continue Flomax Failed voiding trial inpatient. Depression and anxiety/migraine/insomnia- Continue bupropion, topiramate, zolpidem, and for now continue duloxetine, but decrease dose from 60 to 30 mg Continue rizatriptan as needed Hypertension- Continue losartan Asthma/history of bronchospasm- Continue albuterol HFA as needed Patient has a dry cough and congestion but no wheezing. No evidence of acute asthma exacerbation at time of reassessment Weight management- Office Notes from from 02/01 said she was to start tirzepatide, but she reports never taking it Admission HPI Per Admitting Provider The patient is a 64-year-old female with a past medical history including recurrent urinary tract infection, burning mouth syndrome, hyperlipidemia, gout, COPD, excessive daytime sleepiness, depression and anxiety, migraine, and hypertension. The patient presents to the emergency department with complaints of persistent and worsening pelvic and bladder area pain, with decreased ability to urinate over the past several days. She was treated by her PCP for a urinary tract infection on February 01 that grew pansensitive E. coli treated with 5 days of cephalexin. Her symptoms never completely went away, and on 03/07 she went to [facility] care and was treated with Macrobid twice daily for 5 days, for another E. coli UTI was intermediate to cefuroxime, and otherwise pansensitive. She went to her PCP on 03/22, with worsening symptoms of pelvic pressure, discomfort, and decreased ability to urinate, and was given a prescription for cefdinir twice daily, of which she took 1 day status. Due to worsening symptoms, she presented to the ED for assessment. Urinalysis and urine culture with sensitivity were sent, and she was empirically started on ceftriaxone 2 g IV. She was also given normal saline 1.5 L fluid bolus, Zofran 4 mg IV, Toradol 10 mg IV, and had a Rivera catheter placed after having a PVR with 600 cc urinary retention, and [facility] She does also report constipation. CT scan of abdomen and pelvis showed hepatic steatosis but was stable, and no acute other findings. Urinalysis showed white blood cells, and leukocyte esterase, with no bacteria visible. Discharge Exam General: A&Ox3. NAD. Cooperative. HEENT: Atraumatic, normocephalic. Vision and hearing grossly intact Pulm: CTAB A&P. -wheezes, -rales, -rhonchi. Symmetrical chest rise. No increased work of breathing. No respiratory distress. Cardiac: RRR, -mrg. Radial pulses intact and symmetrical. Abdominal: Nontender, nondistended, soft. BS present. Rivera in place draining light yellow urine Discharge Plan Discharge Items Patient Disposition: Home - Self-Care Reason For Visit: URINARY RETENTION, UTI, N/V Discharge Diagnosis: Urinary retention Condition on Discharge: Fair Activity: Resume your previous activity Non-emergency contact: Primary Care Provider and Urologist Call non-emergency contact if: you have any medication questions, your symptoms worsen, your pain is not controlled and your pain is worsening Follow-up/Referrals: Alexis Garza MD [Physician] - (within ~1 week, ideally 03/29-03/30 for voiding trial) Sarita Chavarria MD [Primary Care Provider] - Diet: Regular Addtl Attending Provider Instructions: You were seen in the hospital for urinary retention, nausea/vomiting, and suspicion of a UTI. On review of your past microbiology history all antibiotics were prescribed should have been adequate to treat the bacteria that grew in your cultures. It was suspected that you likely had repeat UTIs rather than 1 continuous and adequately treated UTI. This may be due to vulnerability and urinary retention. Urinary retention can be caused by UTI; however we can also be more vulnerable to recurrent UTIs due to difficulty voiding and retention. Your duloxetine can contribute to urinary retention. This was dose decreased by 50% during admission. If urinary urinary retention is persistent, this medication can/should be further down titrated as tolerated. This was not abruptly stopped at time of hospitalization due to risk of withdrawal symptoms rarely bupropion may also contribute to urinary retention. You had significant urinary retention of more than 400 cc in the ER for which a Rivera was placed. He subsequently underwent a voiding trial but were unable to void after several hours, had 400 cc of retained urine again and after additional monitoring remained unable to pee and the Rivera catheter was replaced. Further inpatient voiding trials were not recommended, it was recommended to leave the Rivera catheter in place for several days, discontinuing Flomax, and to have an outpatient voiding trial and follow-up with urology in the office. You have been prescribed Flomax. Please continue Flomax 0.4 mg daily at this time. Further recommendations regarding this medication will be given to you at your urology follow-up. You had a high number of white blood cells in your urine, culture was pending at time of discharge. You did not show any bacteria/yeast on the initial stain. You have been prescribed continue cefdinir 200 mg by mouth twice daily for 4 additional days. If your culture returns an unusual organism you should receive a call however please confirm the final results of this at your outpatient follow-up appointment A CT of the abdomen and pelvis during admission did not show any evidence of structural abnormalities, acute infectious abnormalities, kidney stones, or acute areas of concern. If you develop any new or worsening symptoms including fever, chills, sweats, chest pain, chest pressure, difficulty breathing, uncontrolled nausea/vomiting, rash, wheezing, passing out or nearly passing out, bleeding, black/bloody bowel movements, or other new or concerning symptoms please call your primary care physician, or call 911 for re-evaluation in the emergency department if you are very concerned. Pending Studies at Discharge: Yes ( final results) Stand-Alone Forms: My [facility] HOSTING, Smoking Cessation Medications and DC Order Prescriptions: New tamsulosin 0.4 mg Capsule 0.4 mg PO HS Qty: 30 0RF cefdinir 300 mg Capsule 300 mg PO BID Qty: 8 0RF Continued albuterol sulfate 90 mcg/actuation HFA aerosol inhaler 2 puff inhalation Q6H PRN (Reason: shortness of breath or wheezing) Qty: 6.7 5RF zolpidem [Ambien] 5 mg tablet 5 mg PO HS PRN (Reason: insomnia) Qty: 30 0RF topiramate [Topamax] 50 mg tablet 50 mg PO BID 90 Days Qty: 180 2RF losartan 50 mg tablet 50 mg PO BID 90 Days Qty: 180 3RF rizatriptan 10 mg tablet,disintegrating 10 mg PO DIRECTED PRN (Reason: migraine headache) Rx Instructions: do not exceed 3 doses per 24 hrs bupropion HCl 150 mg tablet extended release 24 hr 150 mg PO QAM Changed duloxetine 30 mg capsule,delayed release(DR/EC) 30 mg PO QAM Qty: 0 0RF Discontinued cefdinir 300 mg capsule 300 mg PO BID Qty: 14 0RF Rx Instructions: STARTED 03/22/25 Discharge Orders: Discharge Order (Routine); Ordered 03/24/25 Ordered By: Kirit Khanna Admission Data Admit Date/Time: 03/23/25 02:25 Attending Provider: Kirit Khanna Admit Provider: Kirit Quiles Primary Care Provider: Sarita Chavarria. Other Providers: Kirit Quiles Hospital Stay Data Consultations 03/23/25 01:26 ED Decision to Admit Stat Diagnostic Imagining Performed 03/22/25 22:51 CT abd pelvis IV con only Stat Discharge Instructions Given to Patient (Per Discharging Provider) You were seen in the hospital for urinary retention, nausea/vomiting, and suspic ion of a UTI. On review of your past microbiology history all antibiotics were prescribed should have been adequate to treat the bacteria that grew in your cultures. It was suspected that you likely had repeat UTIs rather than 1 continuous and adequately treated UTI. This may be due to vulnerability and urinary retention. Urinary retention can be caused by UTI; however we can also be more vulnerable to recurrent UTIs due to difficulty voiding and retention. Your duloxetine can contribute to urinary retention. This was dose decreased by 50% during admission. If urinary urinary retention is persistent, this medication can/should be further down titrated as tolerated. This was not abruptly stopped at time of hospitalization due to risk of withdrawal symptoms rarely bupropion may also contribute to urinary retention. You had significant urinary retention of more than 400 cc in the ER for which a Rivera was placed. He subsequently underwent a voiding trial but were unable to void after several hours, had 400 cc of retained urine again and after additional monitoring remained unable to pee and the Rivera catheter was replaced. Further inpatient voiding trials were not recommended, it was recommended to leave the Rivera catheter in place for several days, discontinuing Flomax, and to have an outpatient voiding trial and follow-up with urology in the office. You have been prescribed Flomax. Please continue Flomax 0.4 mg daily at this time. Further recommendations regarding this medication will be given to you at your urology follow-up. You had a high number of white blood cells in your urine, culture was pending at time of discharge. You did not show any bacteria/yeast on the initial stain. You have been prescribed continue cefdinir 200 mg by mouth twice daily for 4 additional days. If your culture returns an unusual organism you should receive a call however please confirm the final results of this at your outpatient follow-up appointment A CT of the abdomen and pelvis during admission did not show any evidence of structural abnormalities, acute infectious abnormalities, kidney stones, or acute areas of concern. If you develop any new or worsening symptoms including fever, chills, sweats, chest pain, chest pressure, difficulty breathing, uncontrolled nausea/vomiting, rash, wheezing, passing out or nearly passing out, bleeding, black/bloody bowel movements, or other new or concerning symptoms please call your primary care physician, or call 911 for re-evaluation in the emergency department if you are very concerned. Total Time Total Time Spent Total Time Spent (In Minutes): Time spend day of discharge 35 minutes including direct patient care, documentation, review of labs and images, and coordination of care. Coding Level of Care Code 83692 INP/OBS DISCH >30 MIN Diagnoses UTI (urinary tract infection) N30.00 Hematuria presence: without hematuria Urinary tract infection type: acute cystitis Failure of outpatient treatment Z78.9 Acute urinary retention R33.8 Constipation K59.00
[2025-03-24] MEDS: CEFDINIR 300 MG CAP PO SCH (10:47)
== END 2025-03-24 13:16 | disposition home or self-care (01) ==
LOC: EDINP 22:41 → ED 22:41 → SUATTDRO 03-23 02:25 → 3E 03-23 03:00